=== PATIENT | female | born 1960 | race African-American/Black ===

== ENCOUNTER 2016-07-15 10:18 | Inpatient (IN) | payer OTHER ==
--- NOTE | 2016-07-15 10:41 | PDOC ---
History of Present Illness - General Chief Complaint: Shortness of Breath Stated Complaint: SOB/multiple compalints. Time Seen by Provider: 07/15/16 10:41 History Source: Patient Exam Limitations: No Limitations - History of Present Illness Initial Comments: 55 year old female presented to the ED with complaints of worsening SOB. A/c to the patient, she started having SOB with exertion, progressively getting worse, associated with Cough. Cough was productive, greenish/yellowish sputum, no blood noticed. It was associated with fever x 2days, Tmax-103F, with chills, sweating but no rigors. Took medication which reduced the fever. Patient took albuterol without symptomatic relief. Also complaints of myalgia x 1 week, started with B/L leg pain. Patient reports to have left sided chest tightness x 1 week, 8/10 in intensity, non radiating, not associated with palpitations, nausea or vomiting. Patient mentions that she doesn't take Insulin Levemir and Novolog since she is controlling Diabetes with diet and exercise. Her last HbA1c was 9 but now thinks it is 7 but hasn't checked recently and hasn't visited primary. Took flu shot 2 months ago, No sick contacts. Denies headache, dizziness, loc, trauma. Past Medical Hx: DM, HTN, HLD, Bipolar, Osteoarthritis, Asthma Allergies: NKDA Surgical Hx: None Hospitalization: ER visits only Family Hx: Unknown Social Hx:Lives alone Stopped smoking 8 yrs ago, smoked for more than 20 yrs 2packs/day Occasional alcohol intake Cracked cocaine but clean since 20 yrs. PCP: Dr. Broderick Melgoza (patient would like to change PCP0 07/15/16 17:07 Past History - Travel Traveled outside of the country in the last 30 days: No - Past Medical History Allergies/Adverse Reactions: Allergies Allergy/AdvReac Type Severity Reaction Status Date / Time No Known Allergies Allergy Verified 07/15/16 10:26 Home Medications: Ambulatory Orders Amlodipine Besylate [Norvasc -] 5 mg PO DAILY 07/15/16 Atorvastatin Ca [Lipitor] 20 mg PO DAILY 07/15/16 Clonidine HCl [Catapres] 0.2 mg PO BID 07/15/16 Cyclosporine [Restasis] 1 each OP BID 07/15/16 Fluticasone Prop 0.05% Nasal [Flonase -] 1 - 2 spray NS BID 07/15/16 Losartan Potassium [Cozaar -] 50 mg PO DAILY 07/15/16 Diabetes: Yes HTN: Yes Hypercholesterolemia: Yes Psychiatric Problems: Yes (BI-POLAR) Suicide Attempt (Hx): No - Immunization History Immunization Up to Date: Yes - Psycho/Social/Smoking Cessation Hx Anxiety: No Suicidal Ideation: No Smoking History: Never smoked Have you smoked in the past 12 months: No Number of Cigarettes Smoked Daily: 0 If you are a former smoker, when did you quit?: 8 years ago Information on smoking cessation initiated: No Hx Alcohol Use: No Drug/Substance Use Hx: No Substance Use Type: None Review of Systems - Review of Systems Able to Perform ROS?: Yes Constitutional: Yes: Chills, Fever, Malaise, Weakness. No: Unintentional Wgt. Loss, Unexplained wgt Loss HEENTM: Yes: Tearing. No: Eye Pain, Blurred Vision, Ocular Prothesis, Nose Bleeding, Difficulty Swallowing Respiratory: Yes: Cough, Shortness of Breath, SOB with Exertion, SOB at Rest, Wheezing, Productive cough Musculoskeletal: Yes: Muscle Pain *Physical Exam - Vital Signs Last Vital Signs Temp Pulse Resp BP Pulse Ox 97.9 F 100 H 18 102/72 100 07/15/16 10:28 07/15/16 10:28 07/15/16 10:28 07/15/16 10:28 07/15/16 10:28 - Physical Exam Comments: GENERAL: Awake, alert, and fully oriented, in no acute distress HEENT: Atraumatic. PERRLA, EOMI. Moist mucosa. No JVD LUNGS: No distress, speaks full sentences, B/L equal air entry, occasional wheeze +, no crackles HEART: Regular rate and rhythm, normal S1 and S2, no murmurs, rubs or gallops, peripheral pulses normal and equal bilaterally. ABDOMEN: Soft, nontender, normoactive bowel sounds.~ No guarding, no rebound.~ No masses EXTREMITIES: Normal inspection, Normal range of motion, no edema.~ No clubbing or cyanosis. Lower right extremity: Healing diabetic ulcer NEUROLOGICAL: Cranial nerves II through XII grossly intact.~ Normal speech, normal gait, no focal sensorimotor deficits SKIN: Warm, Dry, normal turgor, no rashes or lesions noted. ED Treatment Course - LABORATORY CBC & Chemistry Diagram: 07/15/16 11:30 07/15/16 15:45 Medical Decision Making - Medical Decision Making 07/15/16 13:59 55 year old female with significant past medical hx of DM, HTN, HLD, Bipolar, Asthma, Osteoarthritis presented to the ED with the chief complaints of SOB/ Cough. Most likely LRTI given the h/o sob, cough, fever Less likely ACS Ordered CBC, CMP, UA, Lactic acid, CXR 07/15/16 14:02 RBS-669, Lactic acid 4.4, AG-15 Patient refused ABG. Will order VBG, repeat lactic acid IV NS 3L. IV Insulin 10Units stat and BGM every hour. possible insulin drip once we get VBG report. 07/15/16 14:05 RBS-400; Lactic acid 2 IV NS @ 125mls/hr Will admit the patient. 07/15/16 17:[address] Solomon, waiting to hear from her. 07/15/16 17:53 Dr. Stephens accepted the patient. Will admit the patient in Med-Surg. IV 10U Insulin stat and BGM Q1H. Lactic acid repeat at 6:45pm. *DC/Admit/Observation/Transfer Diagnosis at time of Disposition: Diabetes mellitus, Cough
--- NOTE | 2016-07-15 10:53 | PDOC ---
[id number] I have performed the following: I have examined & evaluated the patient, The case was reviewed & discussed with the resident, I agree w/resident's findings & plan - HPI HPI: 10/01/16 10:41 Abdomen soft/no peritoneal siigns 10/01/16 10:43 Discharge Disposition - Diagnosis Cough Diabetes mellitus Qualifiers: Diabetes mellitus type: due to underlying condition Diabetes mellitus complication status: without complication - Discharge Dispostion Disposition: HOME Condition at time of disposition: Fair Admit: No - Prescriptions
[2016-07-15] MEDS ORDERED: ALBUTEROL SO4 0.083% IH SOL 2.5 MG/3 ML VIAL.NEB. NEB PRN (11:11)
[2016-07-15] MEDS ORDERED: methylPREDNISolone NA SUCC 125 MG/2 ML VIAL IVPB ONE (11:23)
[2016-07-15] MEDS ORDERED: AZITHROMYCIN IVPB 500 MG in DEXTROSE 5%-WATER - 250 ML IVPB ONE (11:24)
[2016-07-15] MEDS ORDERED: CEFTRIAXONE 1 GM in DEXTROSE 5%-WATER - 50 ML IVPB ONE (11:24)
[2016-07-15] MEDS ORDERED: ALBUTEROL SO4 0.083% IH SOL 2.5 MG/3 ML VIAL.NEB. NEB ONE ×2 (11:30→11:55)
[2016-07-15] MEDS ORDERED: methylPREDNISolone NA SUCC 125 MG/2 ML VIAL ONE (11:56)
[2016-07-15] MEDS ORDERED: CEFTRIAXONE 50 ML ONE (11:56)
[2016-07-15] MEDS ORDERED: AZITHROMYCIN IVPB 250 ML IVPB ONE (11:56)
[2016-07-15 12:03] LABS: BASOPHIL 0.8 % (0-2.0); EOSINOPHIL 1.8 % (0-4.5); MCH 32.6 pg (25.7-33.7); MCHC 32.3 g/dl (32.0-36.0); MEAN PLT VOLUME 10.9 fl (7.5-11.1); NEUTROPHILS 56.6 % (42.8-82.8); PLATELET COUNT 255 K/MM3 (134-434); RDW 14.6 % (11.6-15.6); WHITE BLOOD COUNT 7.5 K/mm3 (4.0-10.0)
[2016-07-15 12:38] LABS: ALBUMIN 3.3 g/dl (3.4-5.0); ALK PHOS 167 U/L (45-117); ANION GAP 15 (8-16); BILIRUBIN,TOTAL 0.3 mg/dL (0.2-1.0); CALCIUM 8.7 mg/dL (8.5-10.1); CO2 24 mmol/L (21-32); SGOT/AST 15 U/L (15-37); SGPT/ALT 25 U/L (12-78); TOT PROT 7.3 g/dl (6.4-8.2)
[2016-07-15 12:39] LABS: TROPONIN I < 0.02 ng/ml (0.00-0.05)
[2016-07-15 12:42] LABS: GLUCOSE,RANDOM 669 mg/dL (74-106)
[2016-07-15 12:44] LABS: URINE APPEARANCE CLEAR; URINE BILIRUBIN NEGATIVE (NEGATIVE); URINE BLOOD NEGATIVE (NEGATIVE); URINE COLOR STRAW; URINE GLUCOSE (UA) 3+ (NEGATIVE); URINE KETONE NEGATIVE (NEGATIVE); URINE LEUK ESTERASE NEGATIVE (NEGATIVE); URINE NITRITE NEGATIVE (NEGATIVE); URINE PROTEIN NEGATIVE (NEGATIVE); URINE UROBILINOGEN NEGATIVE E.U./dl (0.2-1.0)
[2016-07-15] MEDS ORDERED: SODIUM CHLORIDE 1,000 ML IV ONE (12:50)
[2016-07-15] MEDS ORDERED: SODIUM CHLORIDE 2,000 ML IV STA (13:01)
[2016-07-15] MEDS ORDERED: INSULIN REGULAR HUMAN 100 UNITS/ML *VIAL IVPUSH ONE ×2 (13:29→17:49)
[2016-07-15] MEDS ORDERED: INSULIN REGULAR HUMAN 100 UNITS/ML *VIAL ONE ×2 (13:59→18:17)
[2016-07-15 16:06] LABS: VENOUS BLOOD GAS HCO3 23.6 meq/L (19-25); VENOUS PH 7.41 (7.32-7.42)
--- NOTE | 2016-07-15 16:13 | EKG ---
Test Reason : Blood Pressure : / mmHG Vent. Rate : 093 BPM Atrial Rate : 093 BPM P-R Int : 166 ms QRS Dur : 078 ms QT Int : 332 ms P-R-T Axes : 058 014 052 degrees QTc Int : 412 ms SINUS RHYTHM WITH PREMATURE ATRIAL COMPLEXES POSSIBLE LEFT ATRIAL ENLARGEMENT NONSPECIFIC T WAVE ABNORMALITY ABNORMAL ECG NO PREVIOUS ECGS AVAILABLE Confirmed by CLARY LAZARO MD ([id number]) on 07/15/2016 4:13:21 PM Referred By: Confirmed By:CLARY LAZARO MD
[2016-07-15 16:16] LABS: CALCIUM 8.6 mg/dL (8.5-10.1); CREATININE 0.8 mg/dL (0.55-1.02)
[2016-07-15] MEDS: SODIUM CHLORIDE 1,000 ML IV SCH (17:10)
[2016-07-16] MEDS ORDERED: INSULIN (NOVOLOG) ASPART 100 UNITS/ML 10ML VIAL SQ ONE ×2 (00:13→02:09)
[2016-07-16 01:12] LABS: CALCIUM 8.7 mg/dL (8.5-10.1); CREATININE 0.8 mg/dL (0.55-1.02)
[2016-07-16] MEDS ORDERED: ONDANSETRON 4 MG/2 ML VIAL IVPB PRN (01:15)
[2016-07-16] MEDS ORDERED: INSULIN SLIDING SCALE (NOVOLOG) 1 VIAL SQ SCH ×4 (02:00→23:49)
[2016-07-16] MEDS: SODIUM CHLORIDE 0.45% 1,000 ML IV SCH (02:37)
[2016-07-16 05:00] VITALS: BMI 37.4
[2016-07-16] MEDS: metFORMIN HCL 500 MG TABLET (FP) PO SCH ×2 (06:37→15:34)
[2016-07-16] MEDS: INSULIN SLIDING SCALE (NOVOLOG) 1 VIAL SQ SCH ×3 (06:38→17:22)
[2016-07-16] MEDS ORDERED: ATORVASTATIN CA 20 MG TABLET (FP) PO SCH (10:00)
[2016-07-16] MEDS: ALBUTEROL SO4 0.083% IH SOL 2.5 MG/3 ML VIAL.NEB. NEB PRN ×3 (10:40→21:52)
[2016-07-16] MEDS: amLODIPine BESYLATE 5 MG TABLET (FP) PO SCH (10:40)
[2016-07-16] MEDS: ENOXAPARIN NA (PORCINE) 40 MG/0.4 ML DISP.SYRIN SQ SCH (10:40)
[2016-07-16] MEDS: cloNIDine HCL 0.1 MG TABLET PO SCH ×2 (10:40→22:21)
[2016-07-16] MEDS: LOSARTAN POTASSIUM 50 MG TABLET (FP) PO SCH (10:40)
--- NOTE | 2016-07-16 16:18 | HP ---
Admitting History and Physical - Admission Chief Complaint: Shortness of breath History of Present Illness: Pt is a 55 y/o morbidly obese female w/ bipolar disorder who presented to the ER bc of productive cough w/ greenish sputum. Pt states that this was accompanied w/ fever/malaise. In the ER pt was afebrile w/ normal wbc but lactic acid was >4. She was found to have glucose of >600 and trace acetone. Pt admitted to not taking her diabetic meds(levemir) paramjit over 2 months bc of her bipolar dz. She had stopped seeing her therapist. - Past Medical History Pulmonary: Yes: Asthma ...LMP: 11/06/15 ...: No Psych: Yes: Bipolar Endocrine: Yes: Diabetes Mellitus - Past Surgical History Past Surgical History: Yes: None - Smoking History Smoking history: Former smoker Have you smoked in the past 12 months: No Aproximately how many cigarettes per day: 0 If you are a former smoker, when did you quit?: 8 years ago - Alcohol/Substance Use Hx Alcohol Use: No Home Medications - Allergies Allergies/Adverse Reactions: Allergies Allergy/AdvReac Type Severity Reaction Status Date / Time No Known Allergies Allergy Verified 07/15/16 10:26 - Home Medications Home Medications: Ambulatory Orders Amlodipine Besylate [Norvasc -] 5 mg PO DAILY 07/15/16 Atorvastatin Ca [Lipitor] 20 mg PO DAILY 07/15/16 Clonidine HCl [Catapres] 0.2 mg PO BID 07/15/16 Cyclosporine [Restasis] 1 each OP BID 07/15/16 Fluticasone Prop 0.05% Nasal [Flonase -] 1 - 2 spray NS BID 07/15/16 Losartan Potassium [Cozaar -] 50 mg PO DAILY 07/15/16 Family Disease History - Family Disease History Family History: Unremarkable Review of Systems - Review of Systems Constitutional: reports: Fever, Loss of Appetite, Malaise Eyes: reports: No Symptoms HENT: reports: No Symptoms Neck: reports: No Symptoms Cardiovascular: reports: Shortness of Breath Respiratory: reports: Cough, SOB Gastrointestinal: reports: No Symptoms Physical Examination Vital Signs: Vital Signs Temperature 98.2 F 07/16/16 14:00 Pulse Rate 68 07/16/16 14:00 Respiratory Rate 16 07/16/16 14:00 Blood Pressure 118/68 07/16/16 14:00 O2 Sat by Pulse Oximetry (%) 99 07/16/16 09:00 Constitutional: Yes: Well Nourished HENT: Yes: WNL Neck: Yes: WNL Cardiovascular: Yes: WNL, Regular Rate and Rhythm Respiratory: Yes: Other (Decreased bs b/l) Gastrointestinal: Yes: WNL, Normal Bowel Sounds, Soft, Abdomen, Obese Musculoskeletal: Yes: WNL Extremities: Yes: WNL Edema: No Neurological: Yes: WNL, Alert, Oriented Labs: CBC, BMP 07/16/16 00:05 Problem List - Problems (1) DKA (diabetic ketoacidoses) Assessment/Plan: Cont IVF Endo consult Cont sliding scale w/ humalog Start metformin Check HgA1c Check acetone Code(s): E13.10 - OTH DIABETES MELLITUS WITH KETOACIDOSIS WITHOUT COMA (2) Asthma exacerbation Assessment/Plan: Cont IV ceftriaxone/zithro Cont nebulizers Will hold off on steroids due to DKA Pulmonary consult Code(s): J45.901 - UNSPECIFIED ASTHMA WITH (ACUTE) EXACERBATION (3) Elevated lactic acid level Assessment/Plan: Lactic acid trended down after IV hydration Code(s): E87.2 - ACIDOSIS (4) Morbid obesity Code(s): E66.01 - MORBID (SEVERE) OBESITY DUE TO EXCESS CALORIES (5) HTN (hypertension) Code(s): I10 - ESSENTIAL (PRIMARY) HYPERTENSION (6) HLD (hyperlipidemia) Code(s): E78.5 - HYPERLIPIDEMIA, UNSPECIFIED
[2016-07-16] MEDS ORDERED: ALBUTEROL SO4 2.5/IPRATROPIUM 0.5 INH SOL 3 ML VIAL.NEB. NEB PRN (16:20)
[2016-07-16] MEDS: SODIUM CHLORIDE 1,000 ML IV SCH (17:27)
[2016-07-16] MEDS ORDERED: INSULIN DETEMIR 100 UNITS/ML MDV SQ ONE (17:33)
[2016-07-16] MEDS ORDERED: INSULIN (NOVOLOG) ASPART 100 UNITS/ML 10ML VIAL ONE (17:33)
[2016-07-16] MEDS ORDERED: INSULIN (NOVOLOG MIX 70/30) 100 UNITS/ML MDV SQ ONE (17:34)
[2016-07-16] MEDS: cefTRIAXone 1 GM/50 ML BAG (PRE-DOCKED) IVPB SCH (22:23)
[2016-07-16] MEDS: AZITHROMYCIN IVPB 250 MG in DEXTROSE 5%-WATER - 250 ML IVPB SCH (22:23)
--- NOTE | 2016-07-16 23:31 | CONSULT ---
Consult Consult Specialty:: endocrine/diabetes mellitus Referred by:: Reason for Consultation:: iddm uncontrolled - History of Present Illness Chief Complaint: high blood sugars History of Present Illness: 55 year old female presented to the ED with complaints of worsening SOB. A/c to the patient, she started having SOB with exertion, progressively getting worse, associated with Cough. Cough was productive, greenish/yellowish sputum, no blood noticed. It was associated with fever x 2days, Tmax-103F, with chills, sweating but no rigors.Has not taken insulin levemir or humalog for last 6 months tired of having diabetes and wants to avoid it with diet and exercise. - History Source History Provided By: Patient - Past Medical History Pulmonary: Yes: Asthma ...LMP: 11/06/15 ...: No Psych: Yes: Bipolar Endocrine: Yes: Diabetes Mellitus - Past Surgical History Past Surgical History: Yes: None - Alcohol/Substance Use Hx Alcohol Use: No - Smoking History Smoking history: Former smoker Have you smoked in the past 12 months: No Aproximately how many cigarettes per day: 0 If you are a former smoker, when did you quit?: 8 years ago Home Medications - Allergies Allergies/Adverse Reactions: Allergies Allergy/AdvReac Type Severity Reaction Status Date / Time No Known Allergies Allergy Verified 07/15/16 10:26 - Home Medications Home Medications: Ambulatory Orders Amlodipine Besylate [Norvasc -] 5 mg PO DAILY 07/15/16 Atorvastatin Ca [Lipitor] 20 mg PO DAILY 07/15/16 Clonidine HCl [Catapres] 0.2 mg PO BID 07/15/16 Cyclosporine [Restasis] 1 each OP BID 07/15/16 Fluticasone Prop 0.05% Nasal [Flonase -] 1 - 2 spray NS BID 07/15/16 Losartan Potassium [Cozaar -] 50 mg PO DAILY 07/15/16 Review of Systems - Review of Systems Constitutional: reports: Lethargy, Weakness Eyes: reports: Blurred Vision HENT: reports: No Symptoms Neck: reports: No Symptoms Cardiovascular: reports: No Symptoms Respiratory: reports: SOB on Exertion Gastrointestinal: reports: Indigestion Genitourinary: reports: No Symptoms Breasts: reports: No Symptoms Reported Musculoskeletal: reports: No Symptoms Endocrine: reports: Unexplained Weight Loss Psychiatric: reports: Anxiety, Depression Physical Exam Vital Signs: Vital Signs Temperature 97.5 F L 07/16/16 20:20 Pulse Rate 81 07/16/16 20:20 Respiratory Rate 16 07/16/16 20:20 Blood Pressure 148/71 07/16/16 20:20 O2 Sat by Pulse Oximetry (%) 99 07/16/16 09:00 Constitutional: Yes: Anxious Eyes: Yes: EOM Intact HENT: Yes: Normocephalic Neck: Yes: Trachea Midline Cardiovascular: Yes: Regular Rate and Rhythm Respiratory: Yes: CTA Bilaterally Gastrointestinal: Yes: Normal Bowel Sounds ...Rectal Exam: Yes: Deferred Renal/: Yes: WNL Musculoskeletal: Yes: WNL Extremities: Yes: WNL Edema: No Integumentary: Yes: WNL Neurological: Yes: Alert, Oriented Labs: CBC, BMP 07/16/16 00:05 Problem List - Problems (1) DKA (diabetic ketoacidoses) Code(s): E13.10 - OTH DIABETES MELLITUS WITH KETOACIDOSIS WITHOUT COMA (2) HTN (hypertension) Code(s): I10 - ESSENTIAL (PRIMARY) HYPERTENSION Assessment/Plan iddm uncontrolled hyperglycemia dehydration urti htn Abnormal Lab Results 07/16/16 07/16/16 07/16/16 00:05 07:05 07:05 Sodium 135 L BUN 19 H D Random Glucose 595 H* Hemoglobin A1c % 14.3 H Acetone, Qual Trace H Laboratory Tests 07/16/16 07/16/16 07/16/16 00:05 06:02 07:05 Sodium 135 L Potassium 4.4 Chloride 98 Carbon Dioxide 21 Anion Gap 16 BUN 19 H D Creatinine 0.8 POC Glucometer 288 Hemoglobin A1c % 14.3 H Current Medications Generic Name Dose Route Start Last Admin Trade Name Freq PRN Reason Stop Dose Admin Albuterol Sulfate 1 amp 07/16/16 11:09 07/16/16 21:52 Ventolin 0.083% Nebulizer Soln - NEB 1 amp Q6H PRN Administration SHORT OF BREATH/WHEEZING Albuterol/Ipratropium 1 amp 07/16/16 16:20 Duoneb - NEB Q6H PRN SHORTNESS OF BREATH Amlodipine Besylate 5 mg 07/16/16 10:00 07/16/16 10:40 Norvasc - PO 5 mg DAILY ARTURO Administration Atorvastatin Calcium 20 mg 07/17/16 22:00 Lipitor - PO HS ARTURO Ceftriaxone Sodium 1 gm 07/16/16 21:30 07/16/16 22:23 Rocephin 1gm Ivpb (Pre-Docked) IVPB 1 gm DAILY ARTURO Administration Clonidine 0.2 mg 07/16/16 10:00 07/16/16 22:21 Catapres - PO 0.2 mg BID ARTURO Administration Enoxaparin Sodium 40 mg 07/16/16 10:00 07/16/16 10:40 Lovenox - SQ 40 mg DAILY ARTURO Administration Sodium Chloride 1,000 mls @ 75 mls/hr 07/16/16 01:15 07/16/16 02:37 1/2 Normal Saline IV 75 mls/hr ASDIR ARTURO Administration Azithromycin 250 mg/ Dextrose 250 mls @ 250 mls/hr 07/16/16 21:00 07/16/16 22: 23 IVPB 250 mls/hr DAILY ARTURO Administration Insulin Aspart 1 vial 07/16/16 22:00 07/16/16 22:13 Novolog Vial Sliding Scale - SQ 8 units ACHS ARTURO Administration Protocol Losartan Potassium 50 mg 07/16/16 10:00 07/16/16 10:40 Cozaar - PO 50 mg DAILY ARTURO Administration Metformin HCl 1,000 mg 07/16/16 07:00 07/16/16 15:34 Glucophage - PO 1,000 mg BID@0700,1630 ARTURO Administration Patient's Own 1 each 07/17/16 10:00 Medication (Non- OU Formulary) ( BID ARTURO Cyclosporine [ Restasis 0.05%] 1 Each) Ondansetron HCl 4 mg 07/16/16 01:15 Zofran Injection IVPB Q6H PRN NAUSEA plan: bgm ac hs novolog coverage levemir 25 units sq bid metformin 1gm bid diet psych consult for compliance and manic depression
[2016-07-17] MEDS: SODIUM CHLORIDE 0.45% 1,000 ML IV SCH ×2 (02:03→07:02)
[2016-07-17] MEDS: metFORMIN HCL 500 MG TABLET (FP) PO SCH ×2 (07:01→16:58)
[2016-07-17] MEDS: INSULIN SLIDING SCALE (NOVOLOG) 1 VIAL SQ SCH ×4 (07:03→22:31)
[2016-07-17] MEDS: AZITHROMYCIN IVPB 250 MG in DEXTROSE 5%-WATER - 250 ML IVPB SCH (09:00)
[2016-07-17] MEDS ORDERED: CEFTRIAXONE 1 GM in DEXTROSE 5%-WATER - 50 ML IVPB SCH (10:00)
[2016-07-17] MEDS ORDERED: INSULIN DETEMIR 100 UNITS/ML MDV SQ SCH ×2 (10:00→16:30)
[2016-07-17] MEDS: LOSARTAN POTASSIUM 50 MG TABLET (FP) PO SCH (10:46)
[2016-07-17] MEDS: cloNIDine HCL 0.1 MG TABLET PO SCH ×2 (10:46→22:30)
[2016-07-17] MEDS: ENOXAPARIN NA (PORCINE) 40 MG/0.4 ML DISP.SYRIN SQ SCH (10:46)
[2016-07-17] MEDS: amLODIPine BESYLATE 5 MG TABLET (FP) PO SCH (10:47)
[2016-07-17] MEDS: cefTRIAXone 1 GM/50 ML BAG (PRE-DOCKED) IVPB SCH (10:47)
[2016-07-17] MEDS: CYCLOSPORINE OU SCH ×2 (10:50→22:31)
--- NOTE | 2016-07-17 11:56 | CONSULT ---
Consult - text type - Consultation Consultation Note: Neurology History of Present Illness 55 year old female presented to the ED with complaints of worsening SOB with exertion, progressively getting worse, associated with Cough. Cough was productive, greenish/yellowish sputum, associated with fever. Patient with bipolar disorder and neurology consulted. Mental status appears at baseline and patient without focal deficits. Reports myalgia for a week but possibly due to underlying infection. Past History Past Medical Hx: DM, HTN, HLD, Bipolar, Osteoarthritis, Asthma Allergies: NKDA Surgical Hx: None Hospitalization: ER visits only Family Hx: Unknown Social Hx:Lives alone Stopped smoking 8 yrs ago, smoked for more than 20 yrs 2packs/day Occasional alcohol intake Cracked cocaine but clean since 20 yrs. - Travel Traveled outside of the country in the last 30 days: No - Past Medical History Allergies/Adverse Reactions: Allergies Allergy/AdvReac Type Severity Reaction Status Date / Time No Known Allergies Allergy Verified 07/15/16 10:26 Home Medications: Ambulatory Orders Amlodipine Besylate [Norvasc -] 5 mg PO DAILY 07/15/16 Atorvastatin Ca [Lipitor] 20 mg PO DAILY 07/15/16 Clonidine HCl [Catapres] 0.2 mg PO BID 07/15/16 Cyclosporine [Restasis] 1 each OP BID 07/15/16 Fluticasone Prop 0.05% Nasal [Flonase -] 1 - 2 spray NS BID 07/15/16 Losartan Potassium [Cozaar -] 50 mg PO DAILY 07/15/16 Diabetes: Yes HTN: Yes Hypercholesterolemia: Yes Psychiatric Problems: Yes (BI-POLAR) Suicide Attempt (Hx): No - Immunization History Immunization Up to Date: Yes - Psycho/Social/Smoking Cessation Hx Anxiety: No Suicidal Ideation: No Smoking History: Never smoked Have you smoked in the past 12 months: No Number of Cigarettes Smoked Daily: 0 If you are a former smoker, when did you quit?: 8 years ago Information on smoking cessation initiated: No Hx Alcohol Use: No Drug/Substance Use Hx: No Substance Use Type: None Review of Systems - Review of Systems Able to Perform ROS?: Yes Constitutional: Yes: Chills, Fever, Malaise, Weakness. No: Unintentional Wgt. Loss, Unexplained wgt Loss HEENTM: Yes: Tearing. No: Eye Pain, Blurred Vision, Ocular Prothesis, Nose Bleeding, Difficulty Swallowing Respiratory: Yes: Cough, Shortness of Breath, SOB with Exertion, SOB at Rest, Wheezing, Productive cough Musculoskeletal: Yes: Muscle Pain *Physical Exam - Vital Signs Last Vital Signs Temp Pulse Resp BP Pulse Ox 97.9 F 100 H 18 102/72 100 07/15/16 10:28 07/15/16 10:28 07/15/16 10:28 07/15/16 10:28 07/15/16 10:28 - Physical Exam GENERAL: Awake, alert, and fully oriented, in no acute distress HEENT: Atraumatic. PERRLA, EOMI. Moist mucosa. No JVD LUNGS: No distress, speaks full sentences, B/L equal air entry, occasional wheeze +, no crackles HEART: Regular rate and rhythm, normal S1 and S2, no murmurs, rubs or gallops, peripheral pulses normal and equal bilaterally. ABDOMEN: Soft, nontender, normoactive bowel sounds.~ No guarding, no rebound.~ No masses EXTREMITIES: Normal inspection, Normal range of motion, no edema.~ No clubbing or cyanosis. Lower right extremity: Healing diabetic ulcer NEUROLOGICAL: Cranial nerves II through XII grossly intact.~ Normal speech, normal gait, no focal sensorimotor deficits SKIN: Warm, Dry, normal turgor, no rashes or lesions noted. CBCD WBC 7.5 K/mm3 (4.0-10.0) 07/15/16 11:30 RBC 4.23 M/mm3 (3.60-5.2) 07/15/16 11:30 Hgb 13.8 GM/dL (10.7-15.3) 07/15/16 11:30 Hct 42.7 % (32.4-45.2) 07/15/16 11:30 MCV 101.0 fl (80-96) H 07/15/16 11:30 MCHC 32.3 g/dl (32.0-36.0) 07/15/16 11:30 RDW 14.6 % (11.6-15.6) 07/15/16 11:30 Plt Count 255 K/MM3 (134-434) D 07/15/16 11:30 MPV 10.9 fl (7.5-11.1) D 07/15/16 11:30 CMP Sodium 135 mmol/L (136-145) L 07/16/16 00:05 Potassium 4.4 mmol/L (3.5-5.1) 07/16/16 00:05 Chloride 98 mmol/L (98-107) 07/16/16 00:05 Carbon Dioxide 21 mmol/L (21-32) 07/16/16 00:05 Anion Gap 16 (8-16) 07/16/16 00:05 BUN 19 mg/dL (7-18) H D 07/16/16 00:05 Creatinine 0.8 mg/dL (0.55-1.02) 07/16/16 00:05 Creat Clearance w eGFR 58.00 (>60) 07/15/16 11:30 Calcium 8.7 mg/dL (8.5-10.1) 07/16/16 00:05 Total Bilirubin 0.3 mg/dL (0.2-1.0) D 07/15/16 11:30 AST 15 U/L (15-37) D 07/15/16 11:30 ALT 25 U/L (12-78) D 07/15/16 11:30 Alkaline Phosphatase 167 U/L (45-117) H D 07/15/16 11:30 Total Protein 7.3 g/dl (6.4-8.2) 07/15/16 11:30 Albumin 3.3 g/dl (3.4-5.0) L 07/15/16 11:30 Plan: 55 year old female presented to the ED with complaints of worsening SOB with exertion, progressively getting worse, associated with Cough. Cough was productive, greenish/yellowish sputum, associated with fever. Patient with bipolar disorder and neurology consulted. Mental status appears at baseline and patient without focal deficits. Reports myalgia for a week but possibly due to underlying infection. Recommend pysch eval for bipolar Infectious managment Optimize glucose for DKA Endocrine follow up Myalgia should improve as underlying conditions optimized
--- NOTE | 2016-07-17 12:26 | PN ---
Progress Note (short form) - Note Progress Note: PULMONARY CONSULTATION DICTATED 07/17/16 IMP ACUTE ASTHMATIC BRONCHITIS URI LIKELY VIRAL HEMOPTYSIS POORLY CONTROLLED DM HTN BIPOLAR DISORDER ELEVATED LACTATE LEVEL PLAN IV ANTIBIOTICS INHALED BRONCHODILATORS O2 PRN CHEST CT MONITOR BLOOD SUGARS IVF PFTS OUTPATIENT DR CRISTINA Problem List - Problems (1) Asthma exacerbation Code(s): J45.901 - UNSPECIFIED ASTHMA WITH (ACUTE) EXACERBATION (2) Cough Code(s): R05 - COUGH (3) Diabetes mellitus Code(s): E11.9 - TYPE 2 DIABETES MELLITUS WITHOUT COMPLICATIONS (4) Elevated lactic acid level Code(s): E87.2 - ACIDOSIS (5) HTN (hypertension) Code(s): I10 - ESSENTIAL (PRIMARY) HYPERTENSION (6) Morbid obesity Code(s): E66.01 - MORBID (SEVERE) OBESITY DUE TO EXCESS CALORIES (7) Asthmatic bronchitis Code(s): J45.909 - UNSPECIFIED ASTHMA, UNCOMPLICATED (8) Hemoptysis Code(s): R04.2 - HEMOPTYSIS (9) DKA (diabetic ketoacidoses) Code(s): E13.10 - OTH DIABETES MELLITUS WITH KETOACIDOSIS WITHOUT COMA
[2016-07-17] MEDS: TIOTROPIUM BROMIDE 18 MCG/INH (DEVICE W/ 5 CAPSULES) IH SCH (13:28)
[2016-07-17] MEDS: BUDESONIDE/FORMETEROL FUMARATE 160/4.5 mcg INHALER IH SCH ×2 (13:28→22:32)
--- NOTE | 2016-07-17 16:56 | CONS ---
DATE OF CONSULTATION: 07/17/2016 PULMONARY CONSULTATION REFERRING PHYSICIAN: Rosalinda Stephens M.D. HISTORY OF PRESENT ILLNESS: The patient is a 55-year-old black female with past medical history of asthma, history of diabetes mellitus noncompliant, bipolar, hypertension, admitted to [facility] on July 15 with complaint of increasing shortness of breath, cough, sputum production. Patient states approximately 2 weeks prior to this she started developing cough and chest congestion. She also had wheezing. She states she took inhaled bronchodilators which did not offer much improvement. Over the course of time she started developing increasing shortness of breath, cough, and bronchospasm with cough initially productive of greenish yellow sputum, but then after a couple episodes of blood-streaked sputum. She presented to the emergency room with the above. Patient also complained of fever for 2 days up to T-max of 103 with chills and sweating. She presented to ER with above. In the ER, she was noted to have an elevated blood sugar 595. She is felt to have DKA secondary to noncompliance, as well as URI. She was admitted to the floor for further management. She is started on IV antibiotics, inhaled bronchodilators as well as insulin. Patient denies any recent travel , denies h/o DVT or PE in the past. She has a history of tobacco use, approximately 2 packs per day for 20 years, quit approximately 8 years ago. There is no history of occupational exposure to chemicals or fumes. There is no history of respiratory failure requiring respiratory support. PAST MEDICAL HISTORY: Again includes asthma, hypertension, as well as diabetes , and bipolar. REVIEW OF SYSTEMS: Positive cough. Positive sputum. Positive fever. Positive chills. No chest pain. No palpitations. Positive hemoptysis. No abdominal pain. No nausea. No vomiting. No lower extremity edema. CURRENT MEDICATIONS: Include cyclosporin eyedrops, Zofran, Cozaar, Zithromax, Rocephin, Lovenox, albuterol, DuoNeb, Glucophage, Catapres, Norvasc, Lipitor, Novolog, and normal saline. PHYSICAL EXAMINATION: General: The patient is a well-developed, well-nourished female, awake, alert, in no acute distress. Vital signs: She is currently afebrile. Blood pressure 149/76, respiratory rate 20, heart rate 62, O2 saturation is 96% on room air. HEENT: Head is normocephalic, atraumatic. Neck: Supple. Heart: Regular. S1, S2. Chest: Few scattered bilateral wheezes. Abdomen: Soft. Bowel sounds positive. Extremities: No cyanosis, edema. LABORATORY: UA is positive for glucose, negative ketone. WBC 7.5, hemoglobin 13.8, hematocrit 42.7, platelet count of 255,000. VB.41, pCO2 of 37, pO2 of 70, bicarbonate 23. Hemoglobin A1c is 14.3. BUN is 19, creatinine 0.8, sodium 135, glucose 595 on admission. Also chest x-ray report, no infiltrates, no effusions. Initial lactate was 4.4, currently 1.80. IMPRESSION: 1. Uncontrolled diabetes. 2. Upper respiratory infection. 3. Asthmatic bronchitis secondary to upper respiratory infection. 4. Hypertension. 5. Bipolar. PLAN: IV fluid, inhaled bronchodilators, antibiotic therapy, CT scan of the chest. In view of history of tobacco use as well as hemoptysis, glycemic control, continue insulin , monitor blood sugars. Thank you, will follow closely with you. VIKTORIA CRISTINA M.D. GERALD/[id number] MTDD
--- NOTE | 2016-07-17 19:29 | PN ---
Progress Note, Physician - Current Medication List Current Medications: Active Medications Albuterol Sulfate (Ventolin 0.083% Nebulizer Soln -) 1 amp NEB Q6H PRN PRN Reason: SHORT OF BREATH/WHEEZING Last Admin: 07/16/16 21:52 Dose: 1 amp Albuterol/Ipratropium (Duoneb -) 1 amp NEB Q6H PRN PRN Reason: SHORTNESS OF BREATH Amlodipine Besylate (Norvasc -) 5 mg PO DAILY [facility] Last Admin: 07/17/16 10:47 Dose: 5 mg Atorvastatin Calcium (Lipitor -) 20 mg PO HS [facility] Budesonide/Formoterol Fumarate (Symbicort 160/4.5mcg -) 2 puff IH BID [facility] Last Admin: 07/17/16 13:28 Dose: Not Given Ceftriaxone Sodium (Rocephin 1gm Ivpb (Pre-Docked)) 1 gm IVPB DAILY [facility] Last Admin: 07/17/16 10:47 Dose: 1 gm Clonidine (Catapres -) 0.2 mg PO BID [facility] Last Admin: 07/17/16 10:46 Dose: 0.2 mg Enoxaparin Sodium (Lovenox -) 40 mg SQ DAILY [facility] Last Admin: 07/17/16 10:46 Dose: 40 mg Sodium Chloride (1/2 Normal Saline) 1,000 mls @ 75 mls/hr IV ASDIR [facility] Last Admin: 07/17/16 07:02 Dose: 75 mls/hr Azithromycin 250 mg/ Dextrose 250 mls @ 250 mls/hr IVPB DAILY [facility] Last Admin: 07/17/16 09:00 Dose: 250 mls/hr Insulin Aspart (Novolog Vial Sliding Scale -) 1 vial SQ ACHS [facility] PRN Reason: Protocol Last Admin: 07/17/16 17:00 Dose: 9 units Insulin Detemir (Levemir Vial) 30 units SQ BID@0700,2200 [facility] Losartan Potassium (Cozaar -) 50 mg PO DAILY [facility] Last Admin: 07/17/16 10:46 Dose: 50 mg Metformin HCl (Glucophage -) 1,000 mg PO BID@0700,1630 [facility] Last Admin: 07/17/16 16:58 Dose: 1,000 mg Patient's Own Medication (Non- Formulary) ( Cyclosporine [ Restasis 0.05%] 1 Each) 1 each OU BID [facility] Last Admin: 02/15/17 10:50 Dose: 1 each Ondansetron HCl (Zofran Injection) 4 mg IVPB Q6H PRN PRN Reason: NAUSEA Tiotropium [place] (Spiriva -) 1 puff IH DAILY [facility] Last Admin: 07/17/16 13:28 Dose: Not Given - Objective Vital Signs: Vital Signs Temperature 97.3 F L 07/17/16 16:20 Pulse Rate 64 07/17/16 16:20 Respiratory Rate 20 07/17/16 16:20 Blood Pressure 118/71 07/17/16 16:20 O2 Sat by Pulse Oximetry (%) 96 07/17/16 09:00 Labs: CBC, BMP 07/16/16 00:05 Problem List - Problems (1) DKA (diabetic ketoacidoses) Code(s): E13.10 - OTH DIABETES MELLITUS WITH KETOACIDOSIS WITHOUT COMA (2) Asthma exacerbation Code(s): J45.901 - UNSPECIFIED ASTHMA WITH (ACUTE) EXACERBATION (3) Elevated lactic acid level Code(s): E87.2 - ACIDOSIS (4) Morbid obesity Code(s): E66.01 - MORBID (SEVERE) OBESITY DUE TO EXCESS CALORIES (5) HTN (hypertension) Code(s): I10 - ESSENTIAL (PRIMARY) HYPERTENSION (6) HLD (hyperlipidemia) Code(s): E78.5 - HYPERLIPIDEMIA, UNSPECIFIED
[2016-07-17] MEDS ORDERED: INSULIN (NOVOLOG) ASPART 100 UNITS/ML 10ML VIAL ONE ×2 (21:03→22:15)
[2016-07-17] MEDS ORDERED: PT OWN MED DRAWER 7, Y5N ONE (22:20)
[2016-07-17] MEDS: ATORVASTATIN CA 20 MG TABLET (FP) PO SCH (22:29)
[2016-07-17] MEDS: INSULIN DETEMIR 100 UNITS/ML MDV SQ SCH (22:31)
--- NOTE | 2016-07-18 00:33 | PN ---
Progress Note, Physician Chief Complaint: high sugars despite diet improved,has loose stools claims metformin she cant tolerate History of Present Illness: iddm,morbid obesity,htn,urti,still labile blood sugars - Current Medication List Current Medications: Active Medications Albuterol Sulfate (Ventolin 0.083% Nebulizer Soln -) 1 amp NEB Q6H PRN PRN Reason: SHORT OF BREATH/WHEEZING Last Admin: 07/16/16 21:52 Dose: 1 amp Albuterol/Ipratropium (Duoneb -) 1 amp NEB Q6H PRN PRN Reason: SHORTNESS OF BREATH Amlodipine Besylate (Norvasc -) 5 mg PO DAILY [facility] Last Admin: 07/17/16 10:47 Dose: 5 mg Atorvastatin Calcium (Lipitor -) 20 mg PO HS [facility] Last Admin: 07/17/16 22:29 Dose: 20 mg Budesonide/Formoterol Fumarate (Symbicort 160/4.5mcg -) 2 puff IH BID [facility] Last Admin: 07/17/16 22:32 Dose: 2 puff Ceftriaxone Sodium (Rocephin 1gm Ivpb (Pre-Docked)) 1 gm IVPB DAILY [facility] Last Admin: 07/17/16 10:47 Dose: 1 gm Clonidine (Catapres -) 0.2 mg PO BID [facility] Last Admin: 07/17/16 22:30 Dose: 0.2 mg Enoxaparin Sodium (Lovenox -) 40 mg SQ DAILY [facility] Last Admin: 07/17/16 10:46 Dose: 40 mg Sodium Chloride (1/2 Normal Saline) 1,000 mls @ 75 mls/hr IV ASDIR [facility] Last Admin: 07/17/16 07:02 Dose: 75 mls/hr Azithromycin 250 mg/ Dextrose 250 mls @ 250 mls/hr IVPB DAILY [facility] Last Admin: 07/17/16 09:00 Dose: 250 mls/hr Insulin Aspart (Novolog Vial Sliding Scale -) 1 vial SQ ACHS [facility] PRN Reason: Protocol Last Admin: 07/17/16 22:31 Dose: 5 units Insulin Detemir (Levemir Vial) 30 units SQ BID@0700,2200 [facility] Last Admin: 07/17/16 22:31 Dose: 30 units Losartan Potassium (Cozaar -) 50 mg PO DAILY [facility] Last Admin: 07/17/16 10:46 Dose: 50 mg Metformin HCl (Glucophage -) 1,000 mg PO BID@0700,1630 [facility] Last Admin: 07/17/16 16:58 Dose: 1,000 mg Patient's Own Medication (Non- Formulary) ( Cyclosporine [ Restasis 0.05%] 1 Each) 1 each OU BID [facility] Last Admin: 07/17/16 22:31 Dose: 1 each Ondansetron HCl (Zofran Injection) 4 mg IVPB Q6H PRN PRN Reason: NAUSEA Tiotropium [place] (Spiriva -) 1 puff IH DAILY [facility] Last Admin: 07/17/16 13:28 Dose: Not Given - Objective Vital Signs: Vital Signs Temperature 97 F L 07/17/16 21:29 Pulse Rate 69 07/17/16 21:29 Respiratory Rate 18 07/17/16 21:29 Blood Pressure 127/83 07/17/16 21:29 O2 Sat by Pulse Oximetry (%) 96 07/17/16 09:00 Constitutional: Yes: Well Nourished, Anxious Eyes: Yes: EOM Intact HENT: Yes: Normocephalic Neck: Yes: WNL Cardiovascular: Yes: WNL Respiratory: Yes: Poor Air Entry Gastrointestinal: Yes: Hyperactive Bowel Sounds ...Rectal Exam: Yes: Deferred Genitourinary: Yes: WNL Musculoskeletal: Yes: WNL Extremities: Yes: WNL Edema: No Peripheral Pulses WNL: Yes Labs: CBC, BMP 07/16/16 00:05 Problem List - Problems (1) DKA (diabetic ketoacidoses) Code(s): E13.10 - OTH DIABETES MELLITUS WITH KETOACIDOSIS WITHOUT COMA (2) HTN (hypertension) Code(s): I10 - ESSENTIAL (PRIMARY) HYPERTENSION Assessment/Plan Current Active Problems Asthma exacerbation (Acute) Asthmatic bronchitis (Acute) Cough (Acute) Diabetes mellitus (Acute) Elevated lactic acid level (Acute) HLD (hyperlipidemia) (Acute) HTN (hypertension) (Acute) Hemoptysis (Acute) Morbid obesity (Acute) Laboratory Results - last 24 hr 07/15/16 07/15/16 07/15/16 14:16 19:50 21:21 POC Glucometer > 400 > 400 494 07/16/16 07/16/16 07/16/16 00:18 01:53 11:51 POC Glucometer 543 467 402 07/17/16 07/17/16 07/17/16 07:00 11:04 16:52 POC Glucometer 354 306 264 07/17/16 21:20 POC Glucometer 165 Current Medications Generic Name Dose Route Start Last Admin Trade Name Freq PRN Reason Stop Dose Admin Albuterol Sulfate 1 amp 07/16/16 11:09 07/16/16 21:52 Ventolin 0.083% Nebulizer Soln - NEB 1 amp Q6H PRN Administration SHORT OF BREATH/WHEEZING Albuterol/Ipratropium 1 amp 07/16/16 16:20 Duoneb - NEB Q6H PRN SHORTNESS OF BREATH Amlodipine Besylate 5 mg 07/16/16 10:00 07/17/16 10:47 Norvasc - PO 5 mg DAILY [facility] Administration Atorvastatin Calcium 20 mg 07/17/16 22:00 07/17/16 22:29 Lipitor - PO 20 mg HS [facility] Administration Budesonide/Formoterol Fumarate 2 puff 07/17/16 12:30 07/17/16 22:32 Symbicort 160/4.5mcg - IH 2 puff BID [facility] Administration Ceftriaxone Sodium 1 gm 07/16/16 21:30 07/17/16 10:47 Rocephin 1gm Ivpb (Pre-Docked) IVPB 1 gm DAILY [facility] Administration Clonidine 0.2 mg 07/16/16 10:00 07/17/16 22:30 Catapres - PO 0.2 mg BID [facility] Administration Enoxaparin Sodium 40 mg 07/16/16 10:00 07/17/16 10:46 Lovenox - SQ 40 mg DAILY [facility] Administration Sodium Chloride 1,000 mls @ 75 mls/hr 07/16/16 01:15 07/17/16 07:02 1/2 Normal Saline IV 75 mls/hr ASDIR [facility] Administration Azithromycin 250 mg/ Dextrose 250 mls @ 250 mls/hr 07/16/16 21:00 07/17/16 09: 00 IVPB 250 mls/hr DAILY [facility] Administration Insulin Aspart 1 vial 07/17/16 15:54 07/17/16 22:31 Novolog Vial Sliding Scale - SQ 5 units ACHS [facility] Administration Protocol Insulin Detemir 30 units 07/17/16 22:00 07/17/16 22:31 Levemir Vial SQ 30 units BID@0700,2200 [facility] Administration Losartan Potassium 50 mg 07/16/16 10:00 07/17/16 10:46 Cozaar - PO 50 mg DAILY [facility] Administration Patient's Own 1 each 07/17/16 10:00 07/17/16 22:31 Medication (Non- OU 1 each Formulary) ( BID [facility] Administration Cyclosporine [ Restasis 0.05%] 1 Each) Ondansetron HCl 4 mg 07/16/16 01:15 Zofran Injection IVPB Q6H PRN NAUSEA Tiotropium [place] 1 puff 07/17/16 12:30 07/17/16 13:28 Spiriva - IH Not Given DAILY [facility] Laboratory Tests 07/17/16 07/17/16 07/17/16 07:00 11:04 16:52 POC Glucometer 354 306 264 07/17/16 21:20 POC Glucometer 165 plan: titrate dose of levemir and continue novolog sliding scale when respiratory symptoms improve may dc home on insulin
[2016-07-18] MEDS: INSULIN SLIDING SCALE (NOVOLOG) 1 VIAL SQ SCH ×4 (06:41→21:34)
[2016-07-18] MEDS: INSULIN DETEMIR 100 UNITS/ML MDV SQ SCH ×2 (06:41→21:34)
[2016-07-18 08:07] LABS: ALBUMIN 2.7 g/dl (3.4-5.0); ANION GAP 11 (8-16); BILIRUBIN,TOTAL 0.2 mg/dL (0.2-1.0); CALCIUM 8.4 mg/dL (8.5-10.1); CO2 24 mmol/L (21-32); CREATININE 0.5 mg/dL (0.55-1.02); GLUCOSE,RANDOM 199 mg/dL (74-106); SGOT/AST 20 U/L (15-37); SGPT/ALT 30 U/L (12-78); TOT PROT 6.1 g/dl (6.4-8.2)
[2016-07-18 08:08] LABS: ALK PHOS 94 U/L (45-117)
[2016-07-18] MEDS ORDERED: PT OWN MED DRAWER 7, Y5N ONE (09:00)
[2016-07-18] MEDS: LOSARTAN POTASSIUM 50 MG TABLET (FP) PO SCH (09:08)
[2016-07-18] MEDS: CYCLOSPORINE OU SCH ×2 (09:09→21:19)
[2016-07-18] MEDS: amLODIPine BESYLATE 5 MG TABLET (FP) PO SCH (09:09)
[2016-07-18] MEDS: cloNIDine HCL 0.1 MG TABLET PO SCH ×2 (09:09→21:19)
[2016-07-18] MEDS: ENOXAPARIN NA (PORCINE) 40 MG/0.4 ML DISP.SYRIN SQ SCH (09:09)
[2016-07-18] MEDS: TIOTROPIUM BROMIDE 18 MCG/INH (DEVICE W/ 5 CAPSULES) IH SCH (09:10)
[2016-07-18] MEDS: cefTRIAXone 1 GM/50 ML BAG (PRE-DOCKED) IVPB SCH (09:10)
[2016-07-18] MEDS: BUDESONIDE/FORMETEROL FUMARATE 160/4.5 mcg INHALER IH SCH ×2 (09:14→21:20)
--- NOTE | 2016-07-18 09:46 | PN ---
Progress Note (short form) - Note Progress Note: Feels a little better today. Still with some left posterior pleuritic type discomfort. No hemoptysis. Intake & Output 07/15/16 07/16/16 07/17/16 07/18/16 23:59 23:59 23:59 23:59 Intake Total 1100 3320 2050 900 Output Total 1100 Balance 1100 2220 2050 900 Weight 232 lb Last Vital Signs Temp Pulse Resp BP Pulse Ox 98.1 F 56 L 18 111/63 96 07/18/16 06:00 07/18/16 06:00 07/18/16 06:00 07/18/16 06:00 07/17/16 21:00 Active Medications Albuterol Sulfate (Ventolin 0.083% Nebulizer Soln -) 1 amp NEB Q6H PRN PRN Reason: SHORT OF BREATH/WHEEZING Last Admin: 07/16/16 21:52 Dose: 1 amp Albuterol/Ipratropium (Duoneb -) 1 amp NEB Q6H PRN PRN Reason: SHORTNESS OF BREATH Amlodipine Besylate (Norvasc -) 5 mg PO DAILY [facility] Last Admin: 07/18/16 09:09 Dose: 5 mg Atorvastatin Calcium (Lipitor -) 20 mg PO HS [facility] Last Admin: 07/17/16 22:29 Dose: 20 mg Budesonide/Formoterol Fumarate (Symbicort 160/4.5mcg -) 2 puff IH BID [facility] Last Admin: 07/18/16 09:14 Dose: 2 puff Ceftriaxone Sodium (Rocephin 1gm Ivpb (Pre-Docked)) 1 gm IVPB DAILY [facility] Last Admin: 07/18/16 09:10 Dose: 1 gm Clonidine (Catapres -) 0.2 mg PO BID [facility] Last Admin: 07/18/16 09:09 Dose: 0.2 mg Enoxaparin Sodium (Lovenox -) 40 mg SQ DAILY [facility] Last Admin: 07/18/16 09:09 Dose: 40 mg Sodium Chloride (1/2 Normal Saline) 1,000 mls @ 75 mls/hr IV ASDIR [facility] Last Admin: 07/17/16 07:02 Dose: 75 mls/hr Azithromycin 250 mg/ Dextrose 250 mls @ 250 mls/hr IVPB DAILY [facility] Last Admin: 07/17/16 09:00 Dose: 250 mls/hr Insulin Aspart (Novolog Vial Sliding Scale -) 1 vial SQ ACHS [facility] PRN Reason: Protocol Last Admin: 07/18/16 06:41 Dose: 5 units Insulin Detemir (Levemir Vial) 30 units SQ BID@0700,2200 [facility] Last Admin: 07/18/16 06:41 Dose: 30 units Losartan Potassium (Cozaar -) 50 mg PO DAILY [facility] Last Admin: 07/18/16 09:08 Dose: 50 mg Patient's Own Medication (Non- Formulary) ( Cyclosporine [ Restasis 0.05%] 1 Each) 1 each OU BID [facility] Last Admin: 07/18/16 09:09 Dose: 1 each Ondansetron HCl (Zofran Injection) 4 mg IVPB Q6H PRN PRN Reason: NAUSEA Tiotropium [place] (Spiriva -) 1 puff IH DAILY [facility] Last Admin: 07/18/16 09:10 Dose: 1 inh Constitutional: Yes: NAD HENT: Yes: WNL Neck: Yes: WNL Cardiovascular: Yes: WNL, Regular Rate and Rhythm Respiratory: Yes: Scattered rhonchi, NO wheeze Gastrointestinal: Yes: WNL, Normal Bowel Sounds, Soft, Abdomen, Obese Musculoskeletal: Yes: WNL Extremities: Yes: WNL Edema: No Neurological: Yes: WNL, Alert, Oriented Laboratory Results - last 24 hr 07/15/16 07/15/16 07/15/16 14:16 19:50 21:21 Sodium Potassium Chloride Carbon Dioxide Anion Gap BUN Creatinine Creat Clearance w eGFR POC Glucometer > 400 > 400 494 Random Glucose Calcium Total Bilirubin AST ALT Alkaline Phosphatase Total Protein Albumin 07/16/16 07/16/16 07/16/16 00:18 01:53 11:51 Sodium Potassium Chloride Carbon Dioxide Anion Gap BUN Creatinine Creat Clearance w eGFR POC Glucometer 543 467 402 Random Glucose Calcium Total Bilirubin AST ALT Alkaline Phosphatase Total Protein Albumin 07/17/16 07/17/16 07/17/16 11:04 16:52 21:20 Sodium Potassium Chloride Carbon Dioxide Anion Gap BUN Creatinine Creat Clearance w eGFR POC Glucometer 306 264 165 Random Glucose Calcium Total Bilirubin AST ALT Alkaline Phosphatase Total Protein Albumin 07/18/16 07/18/16 06:30 06:40 Sodium 138 Potassium 3.9 Chloride 103 Carbon Dioxide 24 Anion Gap 11 BUN 10 D Creatinine 0.5 L D Creat Clearance w eGFR > 60 POC Glucometer 195 Random Glucose 199 H D Calcium 8.4 L Total Bilirubin 0.2 D AST 20 D ALT 30 Alkaline Phosphatase 94 D Total Protein 6.1 L Albumin 2.7 L Problem List - Problems (1) Asthma exacerbation Code(s): J45.901 - UNSPECIFIED ASTHMA WITH (ACUTE) EXACERBATION (2) Cough Code(s): R05 - COUGH (3) Diabetes mellitus Code(s): E11.9 - TYPE 2 DIABETES MELLITUS WITHOUT COMPLICATIONS (4) Elevated lactic acid level Code(s): E87.2 - ACIDOSIS (5) HTN (hypertension) Code(s): I10 - ESSENTIAL (PRIMARY) HYPERTENSION (6) Morbid obesity Code(s): E66.01 - MORBID (SEVERE) OBESITY DUE TO EXCESS CALORIES (7) Asthmatic bronchitis Code(s): J45.909 - UNSPECIFIED ASTHMA, UNCOMPLICATED (8) Hemoptysis Code(s): R04.2 - HEMOPTYSIS (9) DKA (diabetic ketoacidoses) Code(s): E13.10 - OTH DIABETES MELLITUS WITH KETOACIDOSIS WITHOUT COMA PLAN: Symbicort BD [place] Spiriva ABX O2 as needed Glycemic control Monitor off Systemic steroids for now as I do not appreciate active bronchospasm today Incentive Spirometry / OOB to chair Dr Lemon
[2016-07-18] MEDS: AZITHROMYCIN IVPB 250 MG in DEXTROSE 5%-WATER - 250 ML IVPB SCH (09:54)
[2016-07-18] MEDS: SODIUM CHLORIDE 0.45% 1,000 ML IV SCH (09:54)
--- NOTE | 2016-07-18 10:12 | PN ---
Progress Note (short form) - Note Progress Note: Neurology History of Present Illness 55 year old female presented to the ED with complaints of worsening SOB with exertion, progressively getting worse, associated with Cough. Cough was productive, greenish/yellowish sputum, associated with fever. Patient with bipolar disorder and neurology consulted. Mental status appears at baseline and patient without focal deficits. Reports myalgia for a week but possibly due to underlying infection. Psych consult recommended as bipolar disorder would be best managed by them. No new events overnight. Active Medications Albuterol Sulfate (Ventolin 0.083% Nebulizer Soln -) 1 amp NEB Q6H PRN PRN Reason: SHORT OF BREATH/WHEEZING Last Admin: 07/16/16 21:52 Dose: 1 amp Albuterol/Ipratropium (Duoneb -) 1 amp NEB Q6H PRN PRN Reason: SHORTNESS OF BREATH Amlodipine Besylate (Norvasc -) 5 mg PO DAILY [facility] Last Admin: 07/18/16 09:09 Dose: 5 mg Atorvastatin Calcium (Lipitor -) 20 mg PO HS [facility] Last Admin: 07/17/16 22:29 Dose: 20 mg Budesonide/Formoterol Fumarate (Symbicort 160/4.5mcg -) 2 puff IH BID [facility] Last Admin: 07/18/16 09:14 Dose: 2 puff Clonidine (Catapres -) 0.2 mg PO BID [facility] Last Admin: 07/18/16 09:09 Dose: 0.2 mg Enoxaparin Sodium (Lovenox -) 40 mg SQ DAILY [facility] Last Admin: 07/18/16 09:09 Dose: 40 mg Sodium Chloride (1/2 Normal Saline) 1,000 mls @ 75 mls/hr IV ASDIR [facility] Last Admin: 07/18/16 09:54 Dose: 75 mls/hr Azithromycin 250 mg/ Dextrose 250 mls @ 250 mls/hr IVPB DAILY [facility] Last Admin: 07/18/16 09:54 Dose: 250 mls/hr Insulin Aspart (Novolog Vial Sliding Scale -) 1 vial SQ ACHS [facility] PRN Reason: Protocol Last Admin: 07/18/16 06:41 Dose: 5 units Insulin Detemir (Levemir Vial) 30 units SQ BID@0700,2200 [facility] Last Admin: 07/18/16 06:41 Dose: 30 units Losartan Potassium (Cozaar -) 50 mg PO DAILY [facility] Last Admin: 07/18/16 09:08 Dose: 50 mg Patient's Own Medication (Non- Formulary) ( Cyclosporine [ Restasis 0.05%] 1 Each) 1 each OU BID [facility] Last Admin: 07/18/16 09:09 Dose: 1 each Ondansetron HCl (Zofran Injection) 4 mg IVPB Q6H PRN PRN Reason: NAUSEA Tiotropium [place] (Spiriva -) 1 puff IH DAILY [facility] Last Admin: 07/18/16 09:10 Dose: 1 inh Review of Systems - Review of Systems Able to Perform ROS?: Yes Constitutional: Yes: Chills, Fever, Malaise, Weakness. No: Unintentional Wgt. Loss, Unexplained wgt Loss HEENTM: Yes: Tearing. No: Eye Pain, Blurred Vision, Ocular Prothesis, Nose Bleeding, Difficulty Swallowing Respiratory: Yes: Cough, Shortness of Breath, SOB with Exertion, SOB at Rest, Wheezing, Productive cough Musculoskeletal: Yes: Muscle Pain *Physical Exam Vital Signs Temperature 98.1 F 07/18/16 06:00 Pulse Rate 56 L 07/18/16 06:00 Respiratory Rate 18 07/18/16 06:00 Blood Pressure 111/63 07/18/16 06:00 O2 Sat by Pulse Oximetry (%) 96 07/17/16 21:00 - Physical Exam GENERAL: Awake, alert, and fully oriented, in no acute distress HEENT: Atraumatic. PERRLA, EOMI. Moist mucosa. No JVD LUNGS: No distress, speaks full sentences, B/L equal air entry, occasional wheeze +, no crackles HEART: Regular rate and rhythm, normal S1 and S2, no murmurs, rubs or gallops, peripheral pulses normal and equal bilaterally. ABDOMEN: Soft, nontender, normoactive bowel sounds.~ No guarding, no rebound.~ No masses EXTREMITIES: Normal inspection, Normal range of motion, no edema.~ No clubbing or cyanosis. Lower right extremity: Healing diabetic ulcer NEUROLOGICAL: Cranial nerves II through XII grossly intact.~ Normal speech, normal gait, no focal sensorimotor deficits SKIN: Warm, Dry, normal turgor, no rashes or lesions noted. CBCD WBC 7.5 K/mm3 (4.0-10.0) 07/15/16 11:30 RBC 4.23 M/mm3 (3.60-5.2) 07/15/16 11:30 Hgb 13.8 GM/dL (10.7-15.3) 07/15/16 11:30 Hct 42.7 % (32.4-45.2) 07/15/16 11:30 MCV 101.0 fl (80-96) H 07/15/16 11:30 MCHC 32.3 g/dl (32.0-36.0) 07/15/16 11:30 RDW 14.6 % (11.6-15.6) 07/15/16 11:30 Plt Count 255 K/MM3 (134-434) D 07/15/16 11:30 MPV 10.9 fl (7.5-11.1) D 07/15/16 11:30 CMP Sodium 138 mmol/L (136-145) 07/18/16 06:30 Potassium 3.9 mmol/L (3.5-5.1) 07/18/16 06:30 Chloride 103 mmol/L (98-107) 07/18/16 06:30 Carbon Dioxide 24 mmol/L (21-32) 07/18/16 06:30 Anion Gap 11 (8-16) 07/18/16 06:30 BUN 10 mg/dL (7-18) D 07/18/16 06:30 Creatinine 0.5 mg/dL (0.55-1.02) L D 07/18/16 06:30 Creat Clearance w eGFR > 60 (>60) 07/18/16 06:30 Calcium 8.4 mg/dL (8.5-10.1) L 07/18/16 06:30 Total Bilirubin 0.2 mg/dL (0.2-1.0) D 07/18/16 06:30 AST 20 U/L (15-37) D 07/18/16 06:30 ALT 30 U/L (12-78) 07/18/16 06:30 Alkaline Phosphatase 94 U/L (45-117) D 07/18/16 06:30 Total Protein 6.1 g/dl (6.4-8.2) L 07/18/16 06:30 Albumin 2.7 g/dl (3.4-5.0) L 07/18/16 06:30 Plan: 55 year old female presented to the ED with complaints of worsening SOB with exertion, progressively getting worse, associated with Cough. Cough was productive, greenish/yellowish sputum, associated with fever. Patient with bipolar disorder and neurology consulted. Mental status appears at baseline and patient without focal deficits. Reports myalgia for a week but possibly due to underlying infection. Recommend pysch eval for bipolar Infectious managment Optimize glucose for DKA Endocrine follow up Myalgia should improve as underlying conditions optimized Neurologically stable this am, conversive and cooperative
--- NOTE | 2016-07-18 13:56 | CON.PSY ---
Psychiatry Consult Chief Complaint: stopped taking my DEpakote three weeks aGO.I am Bipolar, - Previous Psychiatric Treatment Outpatient: More than 6 mos ago Inpatient: One prior admission - Previous Substance Abuse Treatment Outpatient: None Inpatient: None - Reason for Previous Treatment Reason for Previous Treatment: Biploar Illness - Current Medications Current Medications: Active Medications Albuterol Sulfate (Ventolin 0.083% Nebulizer Soln -) 1 amp NEB Q6H PRN PRN Reason: SHORT OF BREATH/WHEEZING Last Admin: 07/16/16 21:52 Dose: 1 amp Albuterol/Ipratropium (Duoneb -) 1 amp NEB Q6H PRN PRN Reason: SHORTNESS OF BREATH Amlodipine Besylate (Norvasc -) 5 mg PO DAILY [facility] Last Admin: 07/18/16 09:09 Dose: 5 mg Atorvastatin Calcium (Lipitor -) 20 mg PO HS [facility] Last Admin: 07/17/16 22:29 Dose: 20 mg Budesonide/Formoterol Fumarate (Symbicort 160/4.5mcg -) 2 puff IH BID [facility] Last Admin: 07/18/16 09:14 Dose: 2 puff Clonidine (Catapres -) 0.2 mg PO BID [facility] Last Admin: 07/18/16 09:09 Dose: 0.2 mg Enoxaparin Sodium (Lovenox -) 40 mg SQ DAILY [facility] Last Admin: 07/18/16 09:09 Dose: 40 mg Sodium Chloride (1/2 Normal Saline) 1,000 mls @ 75 mls/hr IV ASDIR [facility] Last Admin: 07/18/16 09:54 Dose: 75 mls/hr Azithromycin 250 mg/ Dextrose 250 mls @ 250 mls/hr IVPB DAILY [facility] Last Admin: 07/18/16 09:54 Dose: 250 mls/hr Insulin Aspart (Novolog Vial Sliding Scale -) 1 vial SQ ACHS [facility] PRN Reason: Protocol Last Admin: 07/18/16 12:22 Dose: 9 units Insulin Detemir (Levemir Vial) 30 units SQ BID@0700,2200 [facility] Last Admin: 07/18/16 06:41 Dose: 30 units Losartan Potassium (Cozaar -) 50 mg PO DAILY [facility] Last Admin: 07/18/16 09:08 Dose: 50 mg Patient's Own Medication (Non- Formulary) ( Cyclosporine [ Restasis 0.05%] 1 Each) 1 each OU BID [facility] Last Admin: 07/18/16 09:09 Dose: 1 each Ondansetron HCl (Zofran Injection) 4 mg IVPB Q6H PRN PRN Reason: NAUSEA Tiotropium [place] (Spiriva -) 1 puff IH DAILY [facility] Last Admin: 07/18/16 09:10 Dose: 1 inh - Allergies Allergies: Allergies Allergy/AdvReac Type Severity Reaction Status Date / Time No Known Allergies Allergy Verified 07/15/16 10:26 - Current Living Status Usual Living Arrangement: Alone - Current Mental Status Evaluation Appearance: Well Groomed Attitude: Cooperative - Affect Affect: Full Range Appropriateness: Appropriate to Content - Mood Mood: Anxious - Speech/Language Expressive: Coherent Receptive: Age Appropriate Comprehension of Spoken Words - Psychomotor Activity Psychomotor Activity: Hyperactive - Thought Process Thought Process: Intact - Thought Content Hallucinations: Absent Delusions: Absent - Self Perception Self Perception: No Impairment - Cognition Attention: Alert Orientation: Time Memory, Short Term: 3/3 Memory, Remote with Promptin/3 - Concentration Serial Sevens Intact: No Simple Calculations Intact: No - Abstraction Proverb Interpretation: Intact Judgement: Minimally Impaired - Insight Insight: Intact - Impulse Control Impulse Control: Good Control - Suicidal Ideation Suicidal Ideation: No - Homicidal Ideation Homicidal Ideation: No Assessment/Plan sTART dePAKOTE 500MG PO bid
--- NOTE | 2016-07-18 19:35 | PN ---
Progress Note, Physician - Current Medication List Current Medications: Active Medications Albuterol Sulfate (Ventolin 0.083% Nebulizer Soln -) 1 amp NEB Q6H PRN PRN Reason: SHORT OF BREATH/WHEEZING Last Admin: 07/16/16 21:52 Dose: 1 amp Albuterol/Ipratropium (Duoneb -) 1 amp NEB Q6H PRN PRN Reason: SHORTNESS OF BREATH Amlodipine Besylate (Norvasc -) 5 mg PO DAILY [facility] Last Admin: 07/18/16 09:09 Dose: 5 mg Atorvastatin Calcium (Lipitor -) 20 mg PO HS [facility] Last Admin: 07/17/16 22:29 Dose: 20 mg Budesonide/Formoterol Fumarate (Symbicort 160/4.5mcg -) 2 puff IH BID [facility] Last Admin: 07/18/16 09:14 Dose: 2 puff Clonidine (Catapres -) 0.2 mg PO BID [facility] Last Admin: 07/18/16 09:09 Dose: 0.2 mg Divalproex Sodium (Depakote -) 500 mg PO BID [facility] Enoxaparin Sodium (Lovenox -) 40 mg SQ DAILY [facility] Last Admin: 07/18/16 09:09 Dose: 40 mg Sodium Chloride (1/2 Normal Saline) 1,000 mls @ 75 mls/hr IV ASDIR [facility] Last Admin: 07/18/16 09:54 Dose: 75 mls/hr Azithromycin 250 mg/ Dextrose 250 mls @ 250 mls/hr IVPB DAILY [facility] Last Admin: 07/18/16 09:54 Dose: 250 mls/hr Insulin Aspart (Novolog Vial Sliding Scale -) 1 vial SQ ACHS [facility] PRN Reason: Protocol Last Admin: 07/18/16 17:44 Dose: 7 units Insulin Detemir (Levemir Vial) 30 units SQ BID@0700,2200 [facility] Last Admin: 07/18/16 06:41 Dose: 30 units Losartan Potassium (Cozaar -) 50 mg PO DAILY [facility] Last Admin: 07/18/16 09:08 Dose: 50 mg Patient's Own Medication (Non- Formulary) ( Cyclosporine [ Restasis 0.05%] 1 Each) 1 each OU BID [facility] Last Admin: 07/18/16 09:09 Dose: 1 each Ondansetron HCl (Zofran Injection) 4 mg IVPB Q6H PRN PRN Reason: NAUSEA Tiotropium [place] (Spiriva -) 1 puff IH DAILY [facility] Last Admin: 07/18/16 09:10 Dose: 1 inh - Objective Vital Signs: Vital Signs Temperature 98.2 F 07/18/16 16:20 Pulse Rate 65 07/18/16 16:20 Respiratory Rate 20 07/18/16 16:20 Blood Pressure 128/65 07/18/16 16:20 O2 Sat by Pulse Oximetry (%) 96 07/18/16 14:38 Labs: CBC, BMP 07/18/16 06:30 Problem List - Problems (1) DKA (diabetic ketoacidoses) Code(s): E13.10 - OTH DIABETES MELLITUS WITH KETOACIDOSIS WITHOUT COMA (2) Asthma exacerbation Code(s): J45.901 - UNSPECIFIED ASTHMA WITH (ACUTE) EXACERBATION (3) Elevated lactic acid level Code(s): E87.2 - ACIDOSIS (4) Morbid obesity Code(s): E66.01 - MORBID (SEVERE) OBESITY DUE TO EXCESS CALORIES (5) HTN (hypertension) Code(s): I10 - ESSENTIAL (PRIMARY) HYPERTENSION (6) HLD (hyperlipidemia) Code(s): E78.5 - HYPERLIPIDEMIA, UNSPECIFIED
[2016-07-18] MEDS ORDERED: INSULIN (NOVOLOG) ASPART 100 UNITS/ML 10ML VIAL ONE (21:16)
[2016-07-18] MEDS: ATORVASTATIN CA 20 MG TABLET (FP) PO SCH (21:19)
[2016-07-18] MEDS: DIVALPROEX SODIUM 500 MG TABLET E.C. PO SCH (21:19)
[2016-07-19] MEDS: SODIUM CHLORIDE 0.45% 1,000 ML IV SCH (06:12)
[2016-07-19] MEDS: INSULIN SLIDING SCALE (NOVOLOG) 1 VIAL SQ SCH ×4 (06:19→21:45)
[2016-07-19] MEDS: INSULIN DETEMIR 100 UNITS/ML MDV SQ SCH ×2 (06:19→21:45)
[2016-07-19] MEDS: amLODIPine BESYLATE 5 MG TABLET (FP) PO SCH (10:20)
[2016-07-19] MEDS: BUDESONIDE/FORMETEROL FUMARATE 160/4.5 mcg INHALER IH SCH ×2 (10:21→21:46)
[2016-07-19] MEDS: TIOTROPIUM BROMIDE 18 MCG/INH (DEVICE W/ 5 CAPSULES) IH SCH (10:21)
[2016-07-19] MEDS: LOSARTAN POTASSIUM 50 MG TABLET (FP) PO SCH (10:21)
[2016-07-19] MEDS: AZITHROMYCIN IVPB 250 MG in DEXTROSE 5%-WATER - 250 ML IVPB SCH (10:21)
[2016-07-19] MEDS: cloNIDine HCL 0.1 MG TABLET PO SCH (10:21)
[2016-07-19] MEDS: CYCLOSPORINE OU SCH ×2 (10:22→21:45)
[2016-07-19] MEDS: ENOXAPARIN NA (PORCINE) 40 MG/0.4 ML DISP.SYRIN SQ SCH (10:22)
[2016-07-19] MEDS: DIVALPROEX SODIUM 500 MG TABLET E.C. PO SCH ×2 (10:22→21:46)
--- NOTE | 2016-07-19 10:34 | PN ---
Progress Note (short form) - Note Progress Note: Neurology History of Present Illness 55 year old female presented to the ED with complaints of worsening SOB with exertion, progressively getting worse, associated with Cough. Cough was productive, greenish/yellowish sputum, associated with fever. Patient with bipolar disorder and neurology consulted. Mental status appears at baseline and patient without focal deficits. Reports myalgia for a week but possibly due to underlying infection. Seen by psych for bipolar disorder, was restarted on Depakote 500mg twice daily. Active Medications Albuterol Sulfate (Ventolin 0.083% Nebulizer Soln -) 1 amp NEB Q6H PRN PRN Reason: SHORT OF BREATH/WHEEZING Last Admin: 07/16/16 21:52 Dose: 1 amp Albuterol/Ipratropium (Duoneb -) 1 amp NEB Q6H PRN PRN Reason: SHORTNESS OF BREATH Amlodipine Besylate (Norvasc -) 5 mg PO DAILY [facility] Last Admin: 07/19/16 10:20 Dose: 5 mg Atorvastatin Calcium (Lipitor -) 20 mg PO HS [facility] Last Admin: 07/18/16 21:19 Dose: 20 mg Budesonide/Formoterol Fumarate (Symbicort 160/4.5mcg -) 2 puff IH BID [facility] Last Admin: 07/19/16 10:21 Dose: 2 puff Clonidine (Catapres -) 0.2 mg PO BID [facility] Last Admin: 07/19/16 10:21 Dose: 0.2 mg Divalproex Sodium (Depakote -) 500 mg PO BID [facility] Last Admin: 07/19/16 10:22 Dose: 500 mg Enoxaparin Sodium (Lovenox -) 40 mg SQ DAILY [facility] Last Admin: 07/19/16 10:22 Dose: 40 mg Sodium Chloride (1/2 Normal Saline) 1,000 mls @ 75 mls/hr IV ASDIR [facility] Last Admin: 07/19/16 06:12 Dose: Not Given Azithromycin 250 mg/ Dextrose 250 mls @ 250 mls/hr IVPB DAILY [facility] Last Admin: 07/19/16 10:21 Dose: 250 mls/hr Insulin Aspart (Novolog Vial Sliding Scale -) 1 vial SQ ACHS [facility] PRN Reason: Protocol Last Admin: 07/19/16 06:19 Dose: 7 units Insulin Detemir (Levemir Vial) 30 units SQ BID@0700,2200 [facility] Last Admin: 07/19/16 06:19 Dose: 30 units Losartan Potassium (Cozaar -) 50 mg PO DAILY [facility] Last Admin: 07/19/16 10:21 Dose: 50 mg Patient's Own Medication (Non- Formulary) ( Cyclosporine [ Restasis 0.05%] 1 Each) 1 each OU BID [facility] Last Admin: 07/19/16 10:22 Dose: 1 each Ondansetron HCl (Zofran Injection) 4 mg IVPB Q6H PRN PRN Reason: NAUSEA Tiotropium [place] (Spiriva -) 1 puff IH DAILY [facility] Last Admin: 07/19/16 10:21 Dose: 1 inhaler *Physical Exam Last Vital Signs Temp Pulse Resp BP Pulse Ox 99 F 64 18 140/88 96 07/19/16 06:18 07/19/16 06:18 07/19/16 06:18 07/19/16 06:18 07/18/16 14:38 - Physical Exam GENERAL: Awake, alert, and fully oriented, in no acute distress HEENT: Atraumatic. PERRLA, EOMI. Moist mucosa. No JVD LUNGS: No distress, speaks full sentences, B/L equal air entry, occasional wheeze +, no crackles HEART: Regular rate and rhythm, normal S1 and S2, no murmurs, rubs or gallops, peripheral pulses normal and equal bilaterally. ABDOMEN: Soft, nontender, normoactive bowel sounds.~ No guarding, no rebound.~ No masses EXTREMITIES: Normal inspection, Normal range of motion, no edema.~ No clubbing or cyanosis. Lower right extremity: Healing diabetic ulcer NEUROLOGICAL: Cranial nerves II through XII grossly intact.~ Normal speech, normal gait, no focal sensorimotor deficits SKIN: Warm, Dry, normal turgor, no rashes or lesions noted. CBCD WBC 7.5 K/mm3 (4.0-10.0) 07/15/16 11:30 RBC 4.23 M/mm3 (3.60-5.2) 07/15/16 11:30 Hgb 13.8 GM/dL (10.7-15.3) 07/15/16 11:30 Hct 42.7 % (32.4-45.2) 07/15/16 11:30 MCV 101.0 fl (80-96) H 07/15/16 11:30 MCHC 32.3 g/dl (32.0-36.0) 07/15/16 11:30 RDW 14.6 % (11.6-15.6) 07/15/16 11:30 Plt Count 255 K/MM3 (134-434) D 07/15/16 11:30 MPV 10.9 fl (7.5-11.1) D 07/15/16 11:30 CMP Sodium 138 mmol/L (136-145) 07/18/16 06:30 Potassium 3.9 mmol/L (3.5-5.1) 07/18/16 06:30 Chloride 103 mmol/L (98-107) 07/18/16 06:30 Carbon Dioxide 24 mmol/L (21-32) 07/18/16 06:30 Anion Gap 11 (8-16) 07/18/16 06:30 BUN 10 mg/dL (7-18) D 07/18/16 06:30 Creatinine 0.5 mg/dL (0.55-1.02) L D 07/18/16 06:30 Creat Clearance w eGFR > 60 (>60) 07/18/16 06:30 Calcium 8.4 mg/dL (8.5-10.1) L 07/18/16 06:30 Total Bilirubin 0.2 mg/dL (0.2-1.0) D 07/18/16 06:30 AST 20 U/L (15-37) D 07/18/16 06:30 ALT 30 U/L (12-78) 07/18/16 06:30 Alkaline Phosphatase 94 U/L (45-117) D 07/18/16 06:30 Total Protein 6.1 g/dl (6.4-8.2) L 07/18/16 06:30 Albumin 2.7 g/dl (3.4-5.0) L 07/18/16 06:30 Plan: 55 year old female presented to the ED with complaints of worsening SOB with exertion, progressively getting worse, associated with Cough. Cough was productive, greenish/yellowish sputum, associated with fever. Patient with bipolar disorder and neurology consulted. Mental status appears at baseline and patient without focal deficits. Reports myalgia for a week but possibly due to underlying infection. Restart depakote 500mg twice daily as per psych Infectious managment Optimize glucose for DKA Endocrine follow up Myalgia should improve as underlying conditions optimized Neurologically stable at this time
--- NOTE | 2016-07-19 13:01 | PN ---
Progress Note (short form) - Note Progress Note: PULMONARY OFFERS NO COMPLAINTS VSS/AFEBRILE ANICTERIC CLEAR S1S2 BS+ NO EDEMA MEDS/NOTES/IMAGING/MICRO NOTED (1) Asthma exacerbation Code(s): J45.901 - UNSPECIFIED ASTHMA WITH (ACUTE) EXACERBATION (2) Cough Code(s): R05 - COUGH (3) Diabetes mellitus Code(s): E11.9 - TYPE 2 DIABETES MELLITUS WITHOUT COMPLICATIONS (4) Elevated lactic acid level Code(s): E87.2 - ACIDOSIS (5) HTN (hypertension) Code(s): I10 - ESSENTIAL (PRIMARY) HYPERTENSION (6) Morbid obesity Code(s): E66.01 - MORBID (SEVERE) OBESITY DUE TO EXCESS CALORIES (7) Asthmatic bronchitis Code(s): J45.909 - UNSPECIFIED ASTHMA, UNCOMPLICATED (8) Hemoptysis Code(s): R04.2 - HEMOPTYSIS (9) DKA (diabetic ketoacidoses) Code(s): E13.10 - OTH DIABETES MELLITUS WITH KETOACIDOSIS WITHOUT COMA PLAN: Symbicort BD [place] Spiriva ABX O2 as needed Glycemic control systemic steroids not needed Incentive Spirometry / OOB to chair Kevin PUENTE MD
--- NOTE | 2016-07-19 20:25 | PN ---
Progress Note, Physician - Current Medication List Current Medications: Active Medications Albuterol Sulfate (Ventolin 0.083% Nebulizer Soln -) 1 amp NEB Q6H PRN PRN Reason: SHORT OF BREATH/WHEEZING Last Admin: 07/16/16 21:52 Dose: 1 amp Albuterol/Ipratropium (Duoneb -) 1 amp NEB Q6H PRN PRN Reason: SHORTNESS OF BREATH Amlodipine Besylate (Norvasc -) 5 mg PO DAILY [facility] Last Admin: 07/19/16 10:20 Dose: 5 mg Atorvastatin Calcium (Lipitor -) 20 mg PO HS [facility] Last Admin: 07/18/16 21:19 Dose: 20 mg Budesonide/Formoterol Fumarate (Symbicort 160/4.5mcg -) 2 puff IH BID [facility] Last Admin: 07/19/16 10:21 Dose: 2 puff Clonidine (Catapres -) 0.2 mg PO BID@1000,1800 [facility] Divalproex Sodium (Depakote -) 500 mg PO BID [facility] Last Admin: 07/19/16 10:22 Dose: 500 mg Enoxaparin Sodium (Lovenox -) 40 mg SQ DAILY [facility] Last Admin: 07/19/16 10:22 Dose: 40 mg Sodium Chloride (1/2 Normal Saline) 1,000 mls @ 75 mls/hr IV ASDIR [facility] Last Admin: 07/19/16 06:12 Dose: Not Given Azithromycin 250 mg/ Dextrose 250 mls @ 250 mls/hr IVPB DAILY [facility] Last Admin: 07/19/16 10:21 Dose: 250 mls/hr Insulin Aspart (Novolog Vial Sliding Scale -) 1 vial SQ ACHS [facility] PRN Reason: Protocol Last Admin: 07/19/16 18:35 Dose: 2 units Insulin Detemir (Levemir Vial) 30 units SQ BID@0700,2200 [facility] Last Admin: 07/19/16 06:19 Dose: 30 units Losartan Potassium (Cozaar -) 50 mg PO DAILY [facility] Last Admin: 07/19/16 10:21 Dose: 50 mg Patient's Own Medication (Non- Formulary) ( Cyclosporine [ Restasis 0.05%] 1 Each) 1 each OU BID [facility] Last Admin: 07/19/16 10:22 Dose: 1 each Ondansetron HCl (Zofran Injection) 4 mg IVPB Q6H PRN PRN Reason: NAUSEA Tiotropium [place] (Spiriva -) 1 puff IH DAILY [facility] Last Admin: 07/19/16 10:21 Dose: 1 inhaler - Objective Vital Signs: Vital Signs Temperature 97 F L 07/19/16 16:20 Pulse Rate 66 07/19/16 16:20 Respiratory Rate 20 07/19/16 16:20 Blood Pressure 136/79 07/19/16 16:20 O2 Sat by Pulse Oximetry (%) 98 07/19/16 12:19 Labs: CBC, BMP 07/18/16 06:30 Problem List - Problems (1) DKA (diabetic ketoacidoses) Code(s): E13.10 - OTH DIABETES MELLITUS WITH KETOACIDOSIS WITHOUT COMA (2) Asthma exacerbation Code(s): J45.901 - UNSPECIFIED ASTHMA WITH (ACUTE) EXACERBATION (3) Elevated lactic acid level Code(s): E87.2 - ACIDOSIS (4) Morbid obesity Code(s): E66.01 - MORBID (SEVERE) OBESITY DUE TO EXCESS CALORIES (5) HTN (hypertension) Code(s): I10 - ESSENTIAL (PRIMARY) HYPERTENSION (6) HLD (hyperlipidemia) Code(s): E78.5 - HYPERLIPIDEMIA, UNSPECIFIED
[2016-07-19] MEDS: ATORVASTATIN CA 20 MG TABLET (FP) PO SCH (21:46)
[2016-07-20] MEDS: ALBUTEROL SO4 0.083% IH SOL 2.5 MG/3 ML VIAL.NEB. NEB PRN (00:27)
[2016-07-20] MEDS: INSULIN DETEMIR 100 UNITS/ML MDV SQ SCH (06:23)
[2016-07-20] MEDS: INSULIN SLIDING SCALE (NOVOLOG) 1 VIAL SQ SCH ×2 (06:23→11:41)
[2016-07-20] MEDS: SODIUM CHLORIDE 0.45% 1,000 ML IV SCH (06:23)
[2016-07-20 06:37] VITALS: TEMP 97.7
[2016-07-20] MEDS ORDERED: INSULIN (NOVOLOG MIX 70/30) 100 UNITS/ML MDV SQ ONE (06:50)
[2016-07-20] MEDS ORDERED: INSULIN (NOVOLOG) ASPART 100 UNITS/ML 10ML VIAL ONE (06:50)
[2016-07-20] MEDS ORDERED: cloNIDine HCL 0.1 MG TABLET PO SCH (10:00)
[2016-07-20] MEDS: AZITHROMYCIN IVPB 250 MG in DEXTROSE 5%-WATER - 250 ML IVPB SCH (10:09)
[2016-07-20] MEDS: LOSARTAN POTASSIUM 50 MG TABLET (FP) PO SCH (10:09)
[2016-07-20] MEDS: CYCLOSPORINE OU SCH (10:10)
[2016-07-20] MEDS: ENOXAPARIN NA (PORCINE) 40 MG/0.4 ML DISP.SYRIN SQ SCH (10:10)
[2016-07-20] MEDS: amLODIPine BESYLATE 5 MG TABLET (FP) PO SCH (10:10)
[2016-07-20] MEDS: DIVALPROEX SODIUM 500 MG TABLET E.C. PO SCH (10:10)
[2016-07-20] MEDS: BUDESONIDE/FORMETEROL FUMARATE 160/4.5 mcg INHALER IH SCH (10:11)
[2016-07-20] MEDS: TIOTROPIUM BROMIDE 18 MCG/INH (DEVICE W/ 5 CAPSULES) IH SCH (10:11)
[2016-07-20 12:56] VITALS: BP 145/90; PULSE 77
== END 2016-07-20 12:14 | disposition home or self-care (01) | DRG 638 ==
LOC: JER 10:18 → JERBED 18:04 → J8W 20:48
PROVIDERS: ADMIT Internal Medicine; ATTEND Internal Medicine
DX: E13.10 Other specified diabetes mellitus with ketoacidosis without coma (principal); J45.901 Unspecified asthma with (acute) exacerbation; R04.2 Hemoptysis; Z68.37 Body mass index [BMI] 37.0-37.9, adult; I10 Essential (primary) hypertension; E66.01 Morbid (severe) obesity due to excess calories; E78.5 Hyperlipidemia, unspecified; F31.9 Bipolar disorder, unspecified; E86.0 Dehydration; M79.1 Myalgia; J06.9 Acute upper respiratory infection, unspecified; Z87.891 Personal history of nicotine dependence
CPT/HCPCS: 36415; 71010-TC; 71250-TC; 80048; 80053; 81003; 82009; 82803; 82947; 83036; 83605; 84484; 84703; 85025; 87040; 87081; 87254; 87804; 93005; 93010; 94010; 94640; 99282-25

== ENCOUNTER 2017-06-30 09:02 | Emergency (ER) | payer OTHER ==
[2017-06-30 09:15] VITALS: TEMP 98.1; BMI 38.7
--- NOTE | 2017-06-30 09:22 | PDOC ---
History of Present Illness - General History Source: Patient Exam Limitations: No Limitations - History of Present Illness Initial Comments: 06/30/17 09:55 The patient is a 56 year old female, with a significant past medical history of diabetes mellitus, asthma, morbid obesity, hyperlipidemia, hypertension, who presents to the emergency department complaining of high blood sugar beginning this morning. The patient reports she took her blood sugar at home and reported a value >400. However, patient reports the home blood sugar device could be greater than 400. The patient reports taking 12 units of Humalog and Levemir but her blood sugar was still over 400 when she checked again. The patient reports symptoms of anxiety, shakiness in the hands and feet, mild increase in urinary frequency, sweating and palpitations beginning last night. The patient also reports a feeling of intermittent chest pain for approx. 2 months described as a clenching sensation. The patient reports she was hospitalized approx. one year ago for DKA and was admitted to the ICU for a couple of days. She denies recent fevers, chills, headache or dizziness. She denies recent nausea, vomit, diarrhea or constipation. She denies recent dysuria, frequency, urgency or hematuria. She denies shortness of breath. Allergies: NKA Past surgical history: None reported. Social history: Quit smoking 8 years ago, prior 2 pack a day smoker. Occasional alcohol use. Primary Care Physician: Dr. Jessika Mendoza <Fernando Kang - Last Filed: 06/30/17 10:40> <Rosalinda Wyatt - Last Filed: 06/30/17 14:06> - General Chief Complaint: Blood Sugar Problem Stated Complaint: PALPITATIONS, BLOOD SUGAR PROBLEM Time Seen by Provider: 06/30/17 09:21 Past History <Fernando Kang - Last Filed: 06/30/17 10:40> - Past Medical History COPD: No Diabetes: Yes HTN: Yes Hypercholesterolemia: Yes Psychiatric Problems: Yes (BI-POLAR) - Immunization History Immunization Up to Date: Yes - Suicide/Smoking/Psychosocial Hx Smoking History: Former smoker Have you smoked in the past 12 months: No Number of Cigarettes Smoked Daily: 0 If you are a former smoker, when did you quit?: 8 years ago Information on smoking cessation initiated: No Hx Alcohol Use: No Drug/Substance Use Hx: No Substance Use Type: None Hx Substance Use Treatment: No <Leatha Wyattbeth - Last Filed: 06/30/17 14:06> - Past Medical History Allergies/Adverse Reactions: Allergies Allergy/AdvReac Type Severity Reaction Status Date / Time No Known Allergies Allergy Verified 06/30/17 09:07 Home Medications: Ambulatory Orders Cyclosporine [Restasis] 1 each OP BID 07/15/16 Albuterol 2.5/Ipratropium 0.5 [Duoneb -] 1 amp NEB Q6H PRN #0 amp 07/20/16 Amlodipine Besylate [Norvasc -] 5 mg PO DAILY tablet 07/20/16 Atorvastatin [place] [Lipitor] 20 mg PO HS tablet 07/20/16 Clonidine HCl [Catapres -] 0.2 mg PO BID tablet 07/20/16 Insulin (Levemir) [Levemir Vial] 30 units SQ BID@0700,2200 #1 ml 07/20/16 Tiotropium [place] [Spiriva] 1 puff IH DAILY #1 inh 07/20/16 Aripiprazole 20 mg PO DAILY 06/30/17 Clonazepam [Klonopin] 1 mg PO DAILY 06/30/17 Divalproex [Depakote -] 1,500 mg PO HS 06/30/17 Escitalopram Oxalate [Lexapro -] 20 mg PO DAILY 06/30/17 Insulin Lispro [Humalog] 100 unit SQ ASDIR 06/30/17 Losartan Potassium [Cozaar -] 100 mg PO DAILY 06/30/17 Review of Systems - Review of Systems Comments:: 06/30/17 09:56 GENERAL/CONSTITUTIONAL: +Anxiety. No fever or chills. No weakness. HEAD, EYES, EARS, NOSE AND THROAT: No change in vision. No ear pain or discharge. No sore throat. CARDIOVASCULAR: +Chest pain. +Palpitations. No shortness of breath. RESPIRATORY: No cough, wheezing, or hemoptysis. GASTROINTESTINAL: No nausea, vomiting, diarrhea or constipation. GENITOURINARY: +Frequency. No dysuria. MUSCULOSKELETAL: No joint or muscle swelling or pain. No neck or back pain. SKIN: No rash NEUROLOGIC: No headache, vertigo, loss of consciousness, or change in strength/ sensation. ENDOCRINE: No increased thirst. No abnormal weight change. HEMATOLOGIC/LYMPHATIC: No anemia, easy bleeding, or history of blood clots. ALLERGIC/IMMUNOLOGIC: No hives or skin allergy. <Fernando Kang - Last Filed: 06/30/17 10:40> *Physical Exam - Vital Signs Last Vital Signs Temp Pulse Resp BP Pulse Ox 98.1 F 78 18 139/75 100 06/30/17 09:08 06/30/17 09:08 06/30/17 09:08 06/30/17 09:08 06/30/17 09:08 <KangFernando - Last Filed: 06/30/17 10:40> - Vital Signs Last Vital Signs Temp Pulse Resp BP Pulse Ox 98.1 F 78 18 139/75 100 06/30/17 09:08 06/30/17 09:08 06/30/17 09:08 06/30/17 09:08 06/30/17 09:08 - Physical Exam Comments: GENERAL: Awake, alert, and fully oriented, in no acute distress HEAD: No signs of trauma EYES: PERRLA, EOMI, sclera anicteric, conjunctiva clear ENT: Auricles normal inspection, hearing grossly normal, nares patent, oropharynx clear without exudates. Moist mucosa NECK: Normal ROM, supple, no lymphadenopathy, JVD, or masses LUNGS: Breath sounds equal, clear to auscultation bilaterally. No wheezes, and no crackles HEART: Regular rate and rhythm, normal S1 and S2, no murmurs, rubs or gallops ABDOMEN: Soft, nontender, normoactive bowel sounds. No guarding, no rebound. No masses EXTREMITIES: Normal range of motion. No clubbing or cyanosis. No cords, erythema, or tenderness. RLE with 1+ pitting edema to mid-landin (chronic per patient), with healed anterior lower leg ulcer, associated with hyperpigmentation. LLE non-edematous and normal in appearance. NEUROLOGICAL: Cranial nerves II through XII grossly intact. Normal speech, normal gait SKIN: Warm, Dry, normal turgor, no rashes or lesions noted. PELVIC: +Slight cottage cheese discharge. No external lesions. <Rosalinda Wyatt - Last Filed: 06/30/17 14:06> ED Treatment Course - LABORATORY CBC & Chemistry Diagram: 06/30/17 09:40 06/30/17 09:45 - RADIOLOGY Radiograph Interpretation: 06/30/17 10:40 EXAM#: TYPE/EXAM: RESULT: [id number] RAD/CHEST X-RAY PORTABLE* Evaluate for pneumonia. Single AP portable chest x-ray. Comparison study AP portable chest x-ray July 15, 2016. Unremarkable contour of the cardiomediastinal silhouette. The pulmonary vasculature is normal. No evidence of a pulmonary infiltrates. No large pleural effusion or pneumothorax is seen. No evidence of blunting of the costophrenic angles, effacement of the diaphragms. No bulky hilar adenopathy is seen. Intact visualized osseous structures. EKG leads are noted. Impression. No evidence of pneumonia, CHF, pneumothorax, or large pleural effusion. Reported By: Jose Kohli MD <Fernando Kang - Last Filed: 06/30/17 10:40> - LABORATORY CBC & Chemistry Diagram: 06/30/17 09:40 06/30/17 10:55 <Rosalinda Wyatt - Last Filed: 06/30/17 14:06> Medical Decision Making - Medical Decision Making No signs of skin infection, no UTI, and no pna. Labs within acceptable limits with exception of glucose, which improved with IVF and insulin. Treated for vaginal candidiasis. Stable for DC home with outpatient f/u with Dr. Mendoza. <Rosalinda Wyatt - Last Filed: 06/30/17 14:06> *DC/Admit/Observation/Transfer - Attestations Scribe Attestion: 06/30/17 09:59 Documentation prepared by Fernando Kang, acting as biomedical engineering technologist for Rosalinda Wyatt MD. <Fernando Kang - Last Filed: 06/30/17 10:40> - Discharge Dispostion Admit: No <Rosalinda Wyatt - Last Filed: 06/30/17 14:06> Diagnosis at time of Disposition: Hyperglycemia, Vaginal candidiasis Diabetes mellitus Qualifiers: Diabetes mellitus type: type 2 Diabetes mellitus complication status: with hyperglycemia Diabetes mellitus long-term insulin use: with long-term use Qualified Code(s): E11.65 - Type 2 diabetes mellitus with hyperglycemia - Discharge Dispostion Disposition: HOME Condition at time of disposition: Stable - Referrals Referrals: Jessika Mendoza MD [Primary Care Provider] - - Patient Instructions Printed Discharge Instructions: DI for Vaginal Yeast Infection, DI for Hyperglycemia -- Adult
[2017-06-30 10:17] LABS: BASO % 0.8 % (0-2.0); EOS % 1.4 % (0-4.5); HEMATOCRIT 37.5 % (32.4-45.2); HEMOGLOBIN 12.1 GM/dL (10.7-15.3); LYMPH % 35.9 % (8-40); MCH 30.1 pg (25.7-33.7); MCHC 32.3 g/dl (32.0-36.0); MEAN CELL VOLUME 93.2 fl (80-96); MEAN PLT VOLUME 9.9 fl (7.5-11.1); MONO % 8.6 % (3.8-10.2); NEUT % 53.3 % (42.8-82.8); PLATELET COUNT 329 K/MM3 (134-434); RBC 4.02 M/mm3 (3.60-5.2); RDW 17.5 % (11.6-15.6)
[2017-06-30 10:28] LABS: URINE APPEARANCE CLEAR; URINE BILIRUBIN NEGATIVE (NEGATIVE); URINE BLOOD NEGATIVE (NEGATIVE); URINE COLOR STRAW; URINE GLUCOSE (UA) 3+ (NEGATIVE); URINE KETONE TRACE (NEGATIVE); URINE LEUK ESTERASE NEGATIVE (NEGATIVE); URINE NITRITE NEGATIVE (NEGATIVE); URINE PROTEIN NEGATIVE (NEGATIVE); URINE UROBILINOGEN NEGATIVE mg/dL (0.2-1.0)
[2017-06-30 11:33] LABS: ANION GAP 10 (8-16); BILIRUBIN,TOTAL 0.2 mg/dL (0.2-1.0); BLOOD UREA NITROGEN 18 mg/dL (7-18); CALCIUM 7.9 mg/dL (8.5-10.1); CHLORIDE 100 mmol/L (98-107); CO2 27 mmol/L (21-32); POTASSIUM 4.1 mmol/L (3.5-5.1); SGOT/AST 9 U/L (15-37); SGPT/ALT 18 U/L (12-78); SODIUM 137 mmol/L (136-145); TOT PROT 7.3 g/dl (6.4-8.2)
[2017-06-30] MEDS ORDERED: SODIUM CHLORIDE 1,000 ML IV STA (11:34)
[2017-06-30 11:35] LABS: GLUCOSE,RANDOM 319 mg/dL (74-106)
[2017-06-30 11:41] LABS: ACETONE SERUM NEGATIVE (NEGATIVE); ALK PHOS 99 U/L (45-117)
[2017-06-30] MEDS ORDERED: FLUCONAZOLE 50 MG TABLET PO ONE (12:49)
[2017-06-30] MEDS ORDERED: INSULIN REGULAR HUMAN 100 UNITS/ML *VIAL IVPUSH ONE (12:52)
[2017-06-30] MEDS ORDERED: INSULIN REGULAR HUMAN 100 UNITS/ML *VIAL ONE (12:58)
[2017-06-30] MEDS ORDERED: FLUCONAZOLE 100 MG TABLET (UD) ONE (12:58)
--- NOTE | 2017-06-30 13:01 | EKG ---
Test Reason : Blood Pressure : / mmHG Vent. Rate : 073 BPM Atrial Rate : 073 BPM P-R Int : 180 ms QRS Dur : 072 ms QT Int : 356 ms P-R-T Axes : 053 010 027 degrees QTc Int : 392 ms NORMAL SINUS RHYTHM CANNOT RULE OUT ANTERIOR INFARCT , AGE UNDETERMINED ABNORMAL ECG WHEN COMPARED WITH ECG OF 15-JUL-2016 12:16, PREMATURE ATRIAL COMPLEXES ARE NO LONGER PRESENT Confirmed by CLARY LAZARO MD ([id number]) on 06/30/2017 1:01:12 PM Referred By: Confirmed By:CLARY LAZARO MD
[2017-06-30 13:09] VITALS: BP 127/63; PULSE 56
== END 2017-06-30 14:19 | disposition home or self-care (01) ==
LOC: JER 09:02
PROC: 3E0337Z Introduction of Electrolytic and Water Balance Substance into Peripheral Vein, Percutaneous Approach (ICD-10-PCS; principal; 2017-06-30)
PROC: 3E033VG Introduction of Insulin into Peripheral Vein, Percutaneous Approach (ICD-10-PCS; 2017-06-30)
DX: E11.65 Type 2 diabetes mellitus with hyperglycemia (principal); Z79.4 Long term (current) use of insulin; B37.3 Candidiasis of vulva and vagina
CPT/HCPCS: 36415; 71045-TC; 80053; 81003; 82009; 82550; 82962; 84443; 84484; 85025; 87086; 93005; 93010; 96361; 96374; 99285-25

== ENCOUNTER 2017-10-21 02:48 | Emergency (ER) | payer OTHER ==
[2017-10-21] MEDS ORDERED: ALBUTEROL SO4 2.5/IPRATROPIUM 0.5 INH SOL 3 ML VIAL.NEB. NEB ONE ×2 (02:56→03:03)
[2017-10-21 03:03] VITALS: BP 144/89; PULSE 84; TEMP 97.8; BMI 32.3
--- NOTE | 2017-10-21 03:14 | PDOC ---
History of Present Illness - General Chief Complaint: Asthma Stated Complaint: ASTHMA Time Seen by Provider: 10/21/17 03:12 - History of Present Illness Initial Comments: 10/21/17 03:14 Ms. Davis is a 56 yo female w/ pmh of DM, Asthma, HLD, HTN, morbid obesity, Bipolar disorder who presents for evaluation of shortness of breath with increased mucous / difficulty breathing for several months. She was previously evaluated early in 2017 and given pulmonary follow-up however she reports she never presented for further evaluation. Ms. Davis says that over the last several months she has had increased mucous and difficulty breathing; she does not use oxygen at home and does not have a home nebulizer. Ms. Davis also endorses a recent history of intermittent chest pain and dyspnea on exertion although she denies any chest pain at this time. The patient denies headache and dizziness. Denies fever, chills, nausea, vomit, diarrhea and constipation. Denies dysuria, frequency, urgency and hematuria. Allergies: NKDA Past History - Past Medical History Allergies/Adverse Reactions: Allergies Allergy/AdvReac Type Severity Reaction Status Date / Time No Known Allergies Allergy Verified 10/21/17 03:03 Home Medications: Ambulatory Orders Cyclosporine [Restasis] 1 each OP BID 07/15/16 Albuterol 2.5/Ipratropium 0.5 [Duoneb -] 1 amp NEB Q6H PRN #0 amp 07/20/16 Amlodipine Besylate [Norvasc -] 5 mg PO DAILY tablet 07/20/16 Atorvastatin Ca [Lipitor] 20 mg PO HS tablet 07/20/16 Insulin (Levemir) [Levemir Vial] 30 units SQ BID@0700,2200 #1 ml 07/20/16 Tiotropium [place] [Spiriva] 1 puff IH DAILY #1 inh 07/20/16 cloNIDine HCL [Catapres -] 0.2 mg PO BID tablet 07/20/16 Aripiprazole 5 mg PO DAILY 06/30/17 Clonazepam [Klonopin] 1 mg PO DAILY 06/30/17 Divalproex [Depakote -] 1,500 mg PO HS 06/30/17 Escitalopram Oxalate [Lexapro -] 20 mg PO DAILY 06/30/17 Losartan Potassium [Cozaar -] 100 mg PO DAILY 06/30/17 Insulin (Novolog) [Novolog Flexpen] 0 units SQ ACHS 10/21/17 COPD: Yes Diabetes: Yes HTN: Yes Hypercholesterolemia: Yes Psychiatric Problems: Yes (BI-POLAR, depression) - Immunization History Immunization Up to Date: Yes - Suicide/Smoking/Psychosocial Hx Smoking History: Former smoker Have you smoked in the past 12 months: No Number of Cigarettes Smoked Daily: 0 If you are a former smoker, when did you quit?: 8 years ago Information on smoking cessation initiated: No Hx Alcohol Use: No Drug/Substance Use Hx: No Substance Use Type: None Hx Substance Use Treatment: No Review of Systems - Review of Systems Comments:: 10/21/17 04:09 GENERAL/CONSTITUTIONAL: No fever or chills. No weakness. HEAD, EYES, EARS, NOSE AND THROAT: No change in vision. No ear pain or discharge. No sore throat. CARDIOVASCULAR: +Chest pain / SOB as described. RESPIRATORY: No cough, wheezing, or hemoptysis. GASTROINTESTINAL: No nausea, vomiting, diarrhea or constipation. GENITOURINARY: No dysuria, frequency, or change in urination. MUSCULOSKELETAL: No joint or muscle swelling or pain. No neck or back pain. SKIN: No rash NEUROLOGIC: No headache, vertigo, loss of consciousness, or change in strength/ sensation. ENDOCRINE: No increased thirst. No abnormal weight change HEMATOLOGIC/LYMPHATIC: No anemia, easy bleeding, or history of blood clots. ALLERGIC/IMMUNOLOGIC: No hives or skin allergy. *Physical Exam - Vital Signs Last Vital Signs Temp Pulse Resp BP Pulse Ox 97.8 F 84 24 144/89 96 10/21/17 02:55 10/21/17 02:55 10/21/17 02:55 10/21/17 02:55 10/21/17 02:55 - Physical Exam Comments: 10/21/17 04:10 GENERAL: +Patient morbidly obese. Awake, alert, and fully oriented, in no acute distress HEAD: No signs of trauma, normocephalic, atraumatic EYES: PERRLA, EOMI, sclera anicteric, conjunctiva clear ENT: Auricles normal inspection, hearing grossly normal, nares patent, oropharynx clear without exudates. Moist mucosa NECK: Normal ROM, supple, no lymphadenopathy, JVD, or masses LUNGS: +Diffusely wheezy. Speaks full sentences HEART: Regular rate and rhythm, normal S1 and S2, no murmurs, rubs or gallops, peripheral pulses normal and equal bilaterally. ABDOMEN: Soft, nontender, normoactive bowel sounds. No guarding, no rebound. No masses EXTREMITIES: Normal inspection, Normal range of motion, no edema. No clubbing or cyanosis. NEUROLOGICAL: Cranial nerves II through XII grossly intact. Normal speech, normal gait, no focal sensorimotor deficits SKIN: Warm, Dry, normal turgor, no rashes or lesions noted. Moderate Sedation - Procedure Monitoring Vital Signs: Vital Signs Temp Pulse Resp BP Pulse Ox 97.8 F 84 24 144/89 96 10/21/17 02:55 10/21/17 02:55 10/21/17 02:55 10/21/17 02:55 10/21/17 02:55 ED Treatment Course - LABORATORY CBC & Chemistry Diagram: 10/21/17 05:00 10/21/17 05:00 - Medications Given in the ED: ED Medications Discontinued Medications Generic Name Dose Route Start Last Admin Trade Name Lydia PRN Reason Stop Dose Admin Albuterol/Ipratropium 1 amp 10/21/17 03:03 10/21/17 03:03 Duoneb - NEB 10/21/17 03:04 1 amp NOW ONE Administration Medical Decision Making - Medical Decision Making 10/21/17 05:22 Ms. Davis is a 56 yo female w/ pmh as described who presents for evaluation of shortness of breath. Patient noted to be wheezy on arrival, much improved with duoneb and prednisone treatment. Patient EKG unchanged from previous, regular rate, regular rhythm, normal access, normal interval, no ST elevations or depressions. 10/21/17 05:54 CXR negative for acute pathology; labs grossly unconcerning as below. Discussed need for patient to follow-up with primary care physician today and pulmonology as soon as possible. Patient verbalized understanding and agreement and will comply. Rx for prednisone burst sent to patient's pharmacy. Discharging to home. Laboratory Results - last 24 hr 10/21/17 10/21/17 10/21/17 05:00 05:00 05:00 WBC 8.3 RBC 3.82 Hgb 11.6 Hct 35.5 MCV 92.9 MCH 30.4 MCHC 32.7 RDW 15.3 D Plt Count 324 MPV 9.5 Neutrophils % 59.5 Lymphocytes % 33.1 Monocytes % 6.0 Eosinophils % 0.8 Basophils % 0.6 Nucleated RBC % 0 Sodium 137 Potassium 3.8 Chloride 106 Carbon Dioxide 24 Anion Gap 7 L BUN 14 Creatinine 0.9 Creat Clearance w eGFR > 60 Random Glucose 277 H Calcium 8.1 L Total Bilirubin 0.2 AST 15 ALT 22 Alkaline Phosphatase 101 Creatine Kinase 146 Troponin I < 0.02 Total Protein 7.0 Albumin 3.3 L *DC/Admit/Observation/Transfer Diagnosis at time of Disposition: COPD exacerbation - Discharge Dispostion Disposition: HOME - Referrals Referrals: Jessika Mendoza MD [Primary Care Provider] - Mk Slater MD [Staff Physician] - - Patient Instructions Printed Discharge Instructions: DI for Chronic Obstructive Pulmonary Disease Additional Instructions: Please follow-up with primary care provider and outside plant cable engineer at provided information. A prescription has been called in to your pharmacy, start tomorrow and take all medications as written. Return to ER if any increase in shortness of breath, fever, chills, or other concerning symptoms. - Post Discharge Activity
[2017-10-21] MEDS ORDERED: predniSONE 20 MG TABLET (UD) ONE (04:28)
[2017-10-21] MEDS ORDERED: predniSONE 20 MG TABLET (UD) PO ONE (04:30)
--- NOTE | 2017-10-21 04:50 | PDOC ---
Attending Attestation - Resident Resident Name: Andrés Tovar - ED Attending Attestation I have performed the following: I have examined & evaluated the patient, The case was reviewed & discussed with the resident, I agree w/resident's findings & plan, Exceptions are as noted - HPI HPI: 10/21/17 04:59 The patient is a 56 year old female with a significant PMH asthma, COPD (never intubated, hx of admissions), diabetes, HTN, hyperlipidemia, morbid obesity, and bipolar disorder who presents to the emergency department for evaluation of worsening shortness of breath for the past few months. She reports associated wheezing and increased mucus with her symptoms and states she expectorated a large mucous plug this evening prompting her to come to the ED for evaluation. The patient also notes she has had intermittent chest pain and dyspnea on exertion for the past few months, last reports sternal dull CP for a few seconds earlier this afternoon. The patient denies using a nebulizer or steroids for her symptoms. The patient notes her shortness of breath feels like her prior asthma exacerbations. Denies current CP. She denies fevers and chills. She denies lightheadedness and dizziness. Denies N/V, abd pain, LE edema. Allergies: NKDA PCP: Dr. Mendoza - Physicial Exam PE: 10/21/17 04:47 GENERAL: Awake, alert, and fully oriented, in no acute distress HEAD: No signs of trauma EYES: PERRLA, EOMI, sclera anicteric, conjunctiva clear ENT: Auricles normal inspection, hearing grossly normal, nares patent, oropharynx clear without exudates. Moist mucosa NECK: Normal ROM, supple, no lymphadenopathy, JVD, or masses LUNGS: Breath sounds equal, clear to auscultation bilaterally. No wheezes, and no crackles HEART: Regular rate and rhythm, normal S1 and S2, no murmurs, rubs or gallops ABDOMEN: Soft, nontender, normoactive bowel sounds. No guarding, no rebound. No masses EXTREMITIES: Normal range of motion, no edema. No clubbing or cyanosis. No cords, erythema, or tenderness NEUROLOGICAL: Normal speech, cranial nerves intact, negative pronator drift, 5/ 5 strength in all 4 extremities, normal sensation to light touch in all 4 extremities, normal cerebellar exam, normal gait, normal reflexes and tone SKIN: Warm, Dry, normal turgor, no rashes or lesions noted. - Medical Decision Making 10/21/17 04:47 56 old female with multiple medical problems presents to the emergency department with shortness of breath that she states feels like her asthma exacerbations. Vitals unremarkable. Patient was initially wheezing when examined by the resident physician, however on my evaluation lungs are clear and wheezing has resolved. Patient states that she feels much better after nebs and steroids. She also complained of months of chest pain and dyspnea on exertion intermittently and thus labs including troponin are pending at this time. EKG is unchanged compared to EKG done in June 2017. If labs are normal and patient continues to feel well will likely discharge the patient. 10/21/17 06:22 Labs wnl CXR on my read wnl, will f/u official read lungs are clear, pt feels better has inhaler at home, will prescribe steroids Requests DC home I discussed the physical exam findings, ancillary test results and final diagnoses with the patient. I answered all of the patient's questions. The patient was satisfied with the care received and felt comfortable with the discharge plan and treatment plan. The patient will call their primary care physician within 24 hours to arrange follow-up and will return to the Emergency Department with any new, persistent or worsening symptoms. Heart Score/ECG Review - History History: Slightly suspicious - Electrocardiogram EKG: Normal - Age Age: 45-65 - Risk Factors Based on the list above the patient has:: >/=3 risk factors or Hx atherosclerotic disease - Troponin Troponin: </= normal limit - Score Heart Score - Total: 3 #1 10/21/17 04:59 Twelve-lead EKG was performed and reviewed by me. Normal sinus rhythm, rate 73. No ST elevations or T-wave inversions. Biphasic T waves in V5 through V6. No changes compared to EKG from June 2017.
[2017-10-21 05:12] LABS: BASO % 0.6 % (0-2.0); EOS % 0.8 % (0-4.5); HEMATOCRIT 35.5 % (32.4-45.2); HEMOGLOBIN 11.6 GM/dL (10.7-15.3); LYMPH % 33.1 % (8-40); MCH 30.4 pg (25.7-33.7); MCHC 32.7 g/dl (32.0-36.0); MEAN CELL VOLUME 92.9 fl (80-96); MEAN PLT VOLUME 9.5 fl (7.5-11.1); NEUT % 59.5 % (42.8-82.8); PLATELET COUNT 324 K/MM3 (134-434); RBC 3.82 M/mm3 (3.60-5.2); RDW 15.3 % (11.6-15.6); WHITE BLOOD COUNT 8.3 K/mm3 (4.0-10.0)
[2017-10-21 05:36] LABS: ALBUMIN 3.3 g/dl (3.4-5.0); ALK PHOS 101 U/L (45-117); ANION GAP 7 (8-16); BILIRUBIN,TOTAL 0.2 mg/dL (0.2-1.0); BLOOD UREA NITROGEN 14 mg/dL (7-18); CALCIUM 8.1 mg/dL (8.5-10.1); CHLORIDE 106 mmol/L (98-107); CO2 24 mmol/L (21-32); CREATININE 0.9 mg/dL (0.55-1.02); GLUCOSE,RANDOM 277 mg/dL (74-106); SGPT/ALT 22 U/L (12-78); SODIUM 137 mmol/L (136-145)
[2017-10-21 05:41] LABS: POTASSIUM 3.8 mmol/L (3.5-5.1); SGOT/AST 15 U/L (15-37)
--- NOTE | 2017-10-21 16:14 | EKG ---
Test Reason : Blood Pressure : / mmHG Vent. Rate : 073 BPM Atrial Rate : 073 BPM P-R Int : 194 ms QRS Dur : 084 ms QT Int : 382 ms P-R-T Axes : 057 016 033 degrees QTc Int : 420 ms NORMAL SINUS RHYTHM NONSPECIFIC ST AND T WAVE ABNORMALITY ABNORMAL ECG WHEN COMPARED WITH ECG OF 30-JUN-2017 09:11, NO SIGNIFICANT CHANGE WAS FOUND Confirmed by MD Carlo, Maxx ([id number]) on 10/21/2017 4:14:28 PM Referred By: Confirmed By:Maxx Matos MD
== END 2017-10-21 06:52 | disposition home or self-care (01) ==
LOC: JER 02:48
PROC: 3E0F7GC Introduction of Other Therapeutic Substance into Respiratory Tract, Via Natural or Artificial Opening (ICD-10-PCS; principal; 2017-10-21)
DX: J44.1 Chronic obstructive pulmonary disease with (acute) exacerbation (principal); J45.909 Unspecified asthma, uncomplicated; I10 Essential (primary) hypertension; E78.00 Pure hypercholesterolemia, unspecified; E11.9 Type 2 diabetes mellitus without complications; Z79.4 Long term (current) use of insulin; F31.9 Bipolar disorder, unspecified; E66.9 Obesity, unspecified; Z68.32 Body mass index [BMI] 32.0-32.9, adult
CPT/HCPCS: 36415; 71046-TC-FY; 80053; 82550; 84484; 85025; 93005; 93010; 94640; 99282-25

== ENCOUNTER 2018-06-10 12:27 | Emergency (ER) | payer OTHER ==
[2018-06-10 12:32] VITALS: BP 142/77; PULSE 75; TEMP 98.3; BMI 38.7
--- NOTE | 2018-06-10 13:26 | PDOC ---
History of Present Illness - General Chief Complaint: Ear Problem Stated Complaint: EAR PROBLEM Time Seen by Provider: 06/10/18 12:56 - History of Present Illness Initial Comments: 06/10/18 13:23 57 y/o F with multiple comorbities presents for evaluation of L ear pain atraumatic in onset x1 day no systemic symptoms Past History - Past Medical History Allergies/Adverse Reactions: Allergies Allergy/AdvReac Type Severity Reaction Status Date / Time No Known Allergies Allergy Verified 06/10/18 12:32 Home Medications: Ambulatory Orders Albuterol 2.5/Ipratropium 0.5 [Duoneb -] 1 amp NEB Q6H PRN #0 amp 07/20/16 Atorvastatin Ca [Lipitor] 20 mg PO HS tablet 07/20/16 cloNIDine HCL [Catapres -] 0.2 mg PO BID tablet 07/20/16 Aripiprazole 5 mg PO DAILY 06/30/17 Divalproex [Depakote -] 1,500 mg PO HS 06/30/17 Insulin (Novolog) [Novolog Flexpen] 0 units SQ ACHS 10/21/17 Aclidinium [place] [Tudorza Pressair] 400 mcg IH BID 01/25/18 Amlodipine Besylate 5 mg PO DAILY 01/25/18 Fluticasone Propionate 50 mcg NS DAILY 01/25/18 Fluticasone/Salmeterol [Advair 250-50 Diskus] 1 each IH BID 01/25/18 Glipizide [Glipizide ER] 10 mg PO DAILY 01/25/18 Insulin (Levemir) [Levemir Vial] 30 units SQ BID@0700,2200 01/25/18 Clonazepam 1 mg PO HS 06/10/18 Gabapentin 300 mg PO BID 06/10/18 Losartan Potassium 100 mg PO DAILY 06/10/18 COPD: Yes Diabetes: Yes HTN: Yes Hypercholesterolemia: Yes Psychiatric Problems: Yes (BI-POLAR, depression) - Immunization History Immunization Up to Date: Yes - Suicide/Smoking/Psychosocial Hx Smoking History: Never smoked Have you smoked in the past 12 months: No Number of Cigarettes Smoked Daily: 0 If you are a former smoker, when did you quit?: 8 years ago Information on smoking cessation initiated: No Hx Alcohol Use: No Drug/Substance Use Hx: No Substance Use Type: None Hx Substance Use Treatment: No Review of Systems - Review of Systems Constitutional: No: Fever HEENTM: Yes: Ear Pain *Physical Exam - Vital Signs Last Vital Signs Temp Pulse Resp BP Pulse Ox 98.3 F 75 18 142/77 100 06/10/18 12:30 06/10/18 12:30 06/10/18 12:30 06/10/18 12:30 06/10/18 12:30 - Physical Exam Comments: 06/10/18 13:24 HEAD: NC/AT EYES: Conjuntiva clear Ears: Canals and TM's normal NOSE: No d/c THROAT: Moist mucous membrances, oral pharanx clear, uvula midline NECK: Supple without adenopathy CARDIAC: S1 S2 LUNGS: CTA Full and Equal breath sounds ABDOMEN: Soft NT ND MS: Full ROM in all joints without edema NEUROLOGIC: No gross sensory or motor deficits, NVID SKIN: Normal color and temperature no lesions or rashes Moderate Sedation - Procedure Monitoring Vital Signs: Procedure Monitoring Vital Signs Temperature 98.3 F 06/10/18 12:30 Pulse Rate 75 06/10/18 12:30 Respiratory Rate 18 06/10/18 12:30 Blood Pressure 142/77 06/10/18 12:30 O2 Sat by Pulse Oximetry (%) 100 06/10/18 12:30 Medical Decision Making - Medical Decision Making 06/10/18 13:24 benign exam will refer to ENT *DC/Admit/Observation/Transfer Diagnosis at time of Disposition: Ear pain, left - Discharge Dispostion Disposition: HOME Condition at time of disposition: Stable Decision to Admit order: No - Referrals Referrals: Jessika Mendoza MD [Primary Care Provider] - González Roberson MD [Staff Physician] - - Patient Instructions Printed Discharge Instructions: DI for Ear Pain-Adult Additional Instructions: Turned to the emergency room should symptoms worsen or go unresolved. Follow-up with ENT in one to 2 days for further evaluation and treatment options. Take Tylenol as directed for pain. Continue regular medications as scheduled. - Post Discharge Activity
== END 2018-06-10 13:29 | disposition home or self-care (01) ==
LOC: JERFT 12:27
DX: H92.02 Otalgia, left ear (principal); I10 Essential (primary) hypertension; E11.49 Type 2 diabetes mellitus with other diabetic neurological complication; Z79.4 Long term (current) use of insulin; E78.00 Pure hypercholesterolemia, unspecified; F41.9 Anxiety disorder, unspecified; F32.9 Major depressive disorder, single episode, unspecified; J44.9 Chronic obstructive pulmonary disease, unspecified
CPT/HCPCS: 99281-25

== ENCOUNTER 2018-12-01 11:52 | Inpatient (IN) | payer OTHER ==
--- NOTE | 2018-12-01 13:08 | PDOC ---
History of Present Illness - General Chief Complaint: Syncope/Near Syncope Stated Complaint: FALL Time Seen by Provider: 12/01/18 12:21 - History of Present Illness Initial Comments: 12/01/18 13:03 57 yo F with h/o asthma, bipolar disorder, HTN, DM, HLD who p/w syncope. Patient reports fall from standing height today, while in kitchen. States that prior to fall she experienced rapid head jerking movements, with eyes crossing. Patient was conscious at time of event. This lasted approximately 30 seconds before dropping to floor, and losing consciousness at approximately 1130 AM. Denies h/o similar presentation. Patient on ground for 3-5 minutes before spouse ( at bedside) walked in attempted to wake patient up, with no difficulty. Patient not ambulatory following fall. Now with right sided headache. Patient with absent weakness, urinary incontinence. Patient also reports 3 months of word finding difficulty, and left sided sharp stabbing chest pain at rest and with movement, lasting for 30 minutes and resolving spontaneously. Patient denies vision change, palpitations, cough, wheezing, orthopena, PND, leg swelling/pain, N/V, F,C, SOB, urinary complaints, hematuria, BPR, abdominal pain, diarrhea, constipation, weakness, sensory changes. PMHx: as noted above ROS: as noted SHx: Denies Etoh, IVDA, tobacco use Allergies: NKDA Past History - Past Medical History Allergies/Adverse Reactions: Allergies Allergy/AdvReac Type Severity Reaction Status Date / Time No Known Allergies Allergy Verified 06/10/18 12:32 Home Medications: Ambulatory Orders Albuterol 2.5/Ipratropium 0.5 [Duoneb -] 1 amp NEB Q6H PRN #0 amp 07/20/16 Atorvastatin Ca [Lipitor] 20 mg PO HS tablet 07/20/16 cloNIDine HCL [Catapres -] 0.2 mg PO BID tablet 07/20/16 Aripiprazole 5 mg PO DAILY 06/30/17 Divalproex [Depakote -] 1,500 mg PO HS 06/30/17 Insulin (Novolog) [Novolog Flexpen] 0 units SQ ACHS 10/21/17 Aclidinium [place] [Tudorza Pressair] 400 mcg IH BID 01/25/18 Amlodipine Besylate 5 mg PO DAILY 01/25/18 Fluticasone Propionate 50 mcg NS DAILY 01/25/18 Fluticasone/Salmeterol [Advair 250-50 Diskus] 1 each IH BID 01/25/18 Glipizide [Glipizide ER] 10 mg PO DAILY 01/25/18 Insulin (Levemir) [Levemir Vial] 30 units SQ BID@0700,2200 01/25/18 Clonazepam 1 mg PO HS 06/10/18 Gabapentin 300 mg PO BID 06/10/18 Losartan Potassium 100 mg PO DAILY 06/10/18 COPD: Yes Diabetes: Yes HTN: Yes Hypercholesterolemia: Yes Psychiatric Problems: Yes (BI-POLAR, depression) - Immunization History Immunization Up to Date: Yes - Suicide/Smoking/Psychosocial Hx Smoking History: Former smoker Have you smoked in the past 12 months: No Number of Cigarettes Smoked Daily: 0 If you are a former smoker, when did you quit?: 8 years ago Information on smoking cessation initiated: No Hx Alcohol Use: No Drug/Substance Use Hx: No Substance Use Type: None Hx Substance Use Treatment: No Review of Systems - Review of Systems Comments:: 12/01/18 13:07 GENERAL/CONSTITUTIONAL: No fever or chills. No weakness. HEAD, EYES, EARS, NOSE AND THROAT: No change in vision. No ear pain or discharge. No sore throat. CARDIOVASCULAR: +chest pain. No shortness of breath RESPIRATORY: No cough, wheezing, or hemoptysis. GASTROINTESTINAL: No nausea, vomiting, diarrhea or constipation. GENITOURINARY: No dysuria, frequency, or change in urination. MUSCULOSKELETAL: No joint or muscle swelling or pain. No neck or back pain. SKIN: No rash NEUROLOGIC: LOC, headache. No vertigo, or change in strength/sensation. ENDOCRINE: No increased thirst. No abnormal weight change HEMATOLOGIC/LYMPHATIC: No anemia, easy bleeding, or history of blood clots. ALLERGIC/IMMUNOLOGIC: No hives or skin allergy. *Physical Exam - Vital Signs Last Vital Signs Temp Pulse Resp BP Pulse Ox 97.6 F 76 18 94/64 95 12/01/18 12:13 12/01/18 12:13 12/01/18 12:13 12/01/18 12:13 12/01/18 12:13 - Physical Exam Comments: 12/01/18 13:06 GENERAL: Awake, alert, and fully oriented, in no acute distress HEAD: right sided superior zygomatic hematoma, with 4 cm vertical skin tear. EYES: PERRLA, EOMI, sclera anicteric, conjunctiva clear ENT: Auricles normal inspection, hearing grossly normal, nares patent, oropharynx clear without exudates. Moist mucosa NECK: Normal ROM, supple, no lymphadenopathy, JVD, or masses LUNGS: No distress, speaks full sentences, clear to auscultation bilaterally HEART: Regular rate and rhythm, normal S1 and S2, no murmurs, rubs or gallops, peripheral pulses normal and equal bilaterally. ABDOMEN: Soft, nontender, normoactive bowel sounds. No guarding, no rebound. No masses EXTREMITIES : Normal inspection, Normal range of motion, no edema. No clubbing or cyanosis. NEUROLOGICAL: Cranial nerves II through XII grossly intact. Normal speech, normal gait, no focal sensorimotor deficits BACK: Neg midline, or paraspinal ttp. Neg skin change, bony deformity, step- off. SKIN: Warm, Dry, normal turgor, no rashes or lesions noted ED Treatment Course - LABORATORY CBC & Chemistry Diagram: 12/01/18 13:20 12/01/18 13:03 - ADDITIONAL ORDERS Additional order review: Laboratory Results 12/01/18 12/01/18 12/01/18 13:50 13:03 12:11 PT with INR 12.10 INR 1.03 Sodium Cancelled Potassium Cancelled Chloride Cancelled Carbon Dioxide Cancelled Anion Gap Cancelled BUN Cancelled Creatinine Cancelled Est GFR (CKD-EPI)AfAm Cancelled Est GFR (CKD-EPI)NonAf Cancelled POC Glucometer 234 Random Glucose Cancelled Calcium Cancelled Total Bilirubin Cancelled AST Cancelled ALT Cancelled Alkaline Phosphatase Cancelled Total Protein Cancelled Albumin Cancelled 12/01/18 12/01/18 13:20 12:11 RBC 3.94 MCV 93.1 MCHC 33.1 RDW 15.6 MPV 9.8 Neutrophils % 70.8 Lymphocytes % 21.4 D Monocytes % 6.4 Eosinophils % 0.7 Basophils % 0.7 POC Glucometer 234 - RADIOLOGY Radiology Studies Ordered: Category Date Time Status FACIAL BONES CT W/O CONTRAST [CT] Stat CT Scan 12/01/18 13:[address] WITHOUT CONTRAST [CT] Stat CT Scan 12/01/18 13:04 Ordered CXRPORT [CHEST X-RAY PORTABLE*] [RAD] Stat Radiology 12/01/18 13:03 Completed - Medications Given in the ED: ED Medications Discontinued Medications Generic Name Dose Route Start Last Admin Trade Name Lydia PRN Reason Stop Dose Admin Acetaminophen 1,000 mg 12/01/18 13:34 12/01/18 13:30 Ofirmev Injection - IVPB 12/01/18 13:35 1,000 mg ONCE ONE Administration Sodium Chloride 1,000 mls @ 1,000 mls/hr 12/01/18 13:34 12/01/18 13:50 Normal Saline - IV 12/01/18 14:33 1,000 mls/hr ASDIR STA Administration Medical Decision Making - Medical Decision Making 12/01/18 13:05 57 yo F with h/o asthma, bipolar disorder, HTN, DM, HLD who p/w convulsions, syncope, and collapse. Patient vitals wnl, AF, A&Ox3, GCS 15. BP 94/64, vitals wnl, AF, A&Ox3. Physical exam notable for right sided superior zygomatic hematoma, with 4 cm vertical skin tear. CTH r/o hemorrhage, hematoma, skull fracture. Will assess for VBI/TIA, cardiac dysarrythmias, hypoglycemia, electrolyte abnml, metabolic and toxic derangements, acid-base disturbances, infection. ED Course: 12/01/18 14:16 EKG: NSR with absent JERRI, STD. + LVH. Nml interval duration and axis. Nml R wave progression. Q waves V2-V3. *DC/Admit/Observation/Transfer Diagnosis at time of Disposition: Syncope and collapse - Discharge Dispostion Decision to Admit order: Yes Decision to Admit order Date/Time: Decision to Admit Order Category Date Time Status Decision to Admit to Hospital Routine Admission 12/01/18 13:59 Active - Referrals Referrals: Jessika Mendoza MD [Primary Care Provider] - - Patient Instructions - Post Discharge Activity
[2018-12-01] MEDS ORDERED: ACETAMINOPHEN 1000 MG/100 ML VIAL (NON FORMULARY) IVPB ONE (13:34)
[2018-12-01] MEDS ORDERED: DIPHTH,PERTUSS(ACELL),TET 0.5 ML DISP.SYRIN IM ONE ×3 (13:34→14:53)
[2018-12-01] MEDS ORDERED: SODIUM CHLORIDE 1,000 ML IV STA (13:34)
[2018-12-01] MEDS ORDERED: ACETAMINOPHEN INJECTION 100 ML IVPB ONE (13:48)
[2018-12-01 14:08] LABS: BASO % 0.7 % (0-2.0); EOS % 0.7 % (0-4.5); HEMATOCRIT 36.7 % (32.4-45.2); HEMOGLOBIN 12.1 GM/dL (10.7-15.3); LYMPH % 21.4 % (8-40); MCH 30.8 pg (25.7-33.7); MCHC 33.1 g/dl (32.0-36.0); MEAN CELL VOLUME 93.1 fl (80-96); MEAN PLT VOLUME 9.8 fl (7.5-11.1); MONO % 6.4 % (3.8-10.2); NEUT % 70.8 % (42.8-82.8); PLATELET COUNT 423 K/MM3 (134-434); RBC 3.94 M/mm3 (3.60-5.2); RDW 15.6 % (11.6-15.6); WHITE BLOOD COUNT 13.2 K/mm3 (4.0-10.0)
[2018-12-01 14:16] LABS: INR 1.03 (0.83-1.09); PROTHROMBIN TIME (PATIENT) 12.1 SEC (9.7-13.0)
[2018-12-01 16:25] LABS: EPI CELLS 11.3 /HPF (0-5/HPF); HYALINE CASTS 3 /lpf (0-8); PH,URINE 5.5 (5.0-8.0); URINE APPEARANCE CLOUDY; URINE BACTERIA 361.3 /hpf (NEGATIVE); URINE BILIRUBIN NEGATIVE (NEGATIVE); URINE COLOR YELLOW; URINE GLUCOSE (UA) NEGATIVE (NEGATIVE); URINE KETONE NEGATIVE (NEGATIVE); URINE LEUK ESTERASE NEGATIVE (NEGATIVE); URINE NITRITE NEGATIVE (NEGATIVE); URINE PROTEIN 2+ (NEGATIVE); URINE WBC 7 /hpf (0-5)
--- NOTE | 2018-12-01 17:46 | PDOC ---
Documentation entered by Artur Lee SCRIBE, acting as scribe for Jazz Durham MD. Jazz Durham MD: This documentation has been prepared by the Jesus portillo Joel, SCRIBE, under my direction and personally reviewed by me in its entirety. I confirm that the documentation accurately reflects all work, treatment, procedures, and medical decision making performed by me. Attending Attestation - Resident Resident Name: Lance Stone - [facility] HPI: 12/01/18 14:06 The patient is a 57 year old female with a significant PMH of HTN, DM, hyperlipidemia, asthma, and bipolar disorder who presents to the emergency department for evaluation R side headache and difficulty ambulating s/p syncope this morning. The patient reports experiencing rapid head jerks while standing in the kitchen this morning, after which her eyes suzy closer together and she lost consciousness and fell to the floor, hitting her head. The patients states walking in about 5 minutes after the fall and waking the patient up from the floor, after which he called EMS. The patient denies any medication changes. The patient denies chest pain, shortness of breath, and dizziness. Denies fever, chills, nausea, vomit, diarrhea and constipation. Denies dysuria, frequency, urgency and hematuria. Allergies: NKA Social history: Former smoker. No reported alcohol, or drug use. PCP: Dr. Mendoza - Physicial Exam PE: 12/01/18 17:41 Agree with resident exam. Patient is alert and oriented and in no acute distress. She is alert and oriented and neurologoically intact. CV: Rrr no m/r/ g. Pulm: CTA b/l. - Medical Decision Making 12/01/18 17:44 Pt presents to the ED with seizure vs syncope. Labs and EKG are within normal limits. CT head is negative. Will admit to medicine for continued management.
[2018-12-01 21:04] LABS: ALBUMIN 3.1 g/dl (3.4-5.0); BILIRUBIN,TOTAL 0.4 mg/dL (0.2-1); BLOOD UREA NITROGEN 22.2 mg/dL (7-18); CALCIUM 8.7 mg/dL (8.5-10.1); CREATININE 1.4 mg/dL (0.55-1.3); POTASSIUM 4.4 mmol/L (3.5-5.1)
[2018-12-01] MEDS ORDERED: ASPIRIN 325 MG TABLET PO ONE (21:30)
[2018-12-01] MEDS ORDERED: ASPIRIN 81 MG CHEWABLE TABLETS ONE (21:36)
--- NOTE | 2018-12-01 21:45 | PDOC ---
*Physical Exam - Vital Signs Last Vital Signs Temp Pulse Resp BP Pulse Ox 96.9 F L 72 16 109/75 99 12/01/18 17:25 12/01/18 17:25 12/01/18 17:25 12/01/18 17:25 12/01/18 17:25 ED Treatment Course - LABORATORY CBC & Chemistry Diagram: 12/01/18 13:20 12/01/18 20:00 - ADDITIONAL ORDERS Additional order review: Laboratory Results 12/01/18 12/01/18 12/01/18 20:00 16:09 13:50 PT with INR 12.10 INR 1.03 Sodium 143 Potassium 4.4 Chloride 105 Carbon Dioxide 26 Anion Gap 11 BUN 22.2 H Creatinine 1.4 H Est GFR (CKD-EPI)AfAm 48.90 Est GFR (CKD-EPI)NonAf 42.19 POC Glucometer Random Glucose 211 H Calcium 8.7 Total Bilirubin 0.4 AST 15 ALT 14 Alkaline Phosphatase 87 Creatine Kinase 251 H Troponin I 3.08 H* Total Protein 7.0 Albumin 3.1 L Urine Color Yellow Urine Appearance Cloudy Urine pH 5.5 Ur Specific [place] 1.015 Urine Protein 2+ H Urine Glucose (UA) Negative Urine Ketones Negative Urine Blood Negative Urine Nitrite Negative Urine Bilirubin Negative Urine Urobilinogen 1.0 Ur Leukocyte Esterase Negative Urine WBC (Auto) 7 Urine Casts (Auto) 3 U Epithel Cells (Auto) 11.3 Urine Bacteria (Auto) 361.3 12/01/18 12/01/18 13:03 12:11 PT with INR INR Sodium Cancelled Potassium Cancelled Chloride Cancelled Carbon Dioxide Cancelled Anion Gap Cancelled BUN Cancelled Creatinine Cancelled Est GFR (CKD-EPI)AfAm Cancelled Est GFR (CKD-EPI)NonAf Cancelled POC Glucometer 234 Random Glucose Cancelled Calcium Cancelled Total Bilirubin Cancelled AST Cancelled ALT Cancelled Alkaline Phosphatase Cancelled Creatine Kinase Troponin I Total Protein Cancelled Albumin Cancelled Urine Color Urine Appearance Urine pH Ur Specific [place] Urine Protein Urine Glucose (UA) Urine Ketones Urine Blood Urine Nitrite Urine Bilirubin Urine Urobilinogen Ur Leukocyte Esterase Urine WBC (Auto) Urine Casts (Auto) U Epithel Cells (Auto) Urine Bacteria (Auto) 12/01/18 12/01/18 13:20 12:11 RBC 3.94 MCV 93.1 MCHC 33.1 RDW 15.6 MPV 9.8 Neutrophils % 70.8 Lymphocytes % 21.4 D Monocytes % 6.4 Eosinophils % 0.7 Basophils % 0.7 POC Glucometer 234 - Medications Given in the ED: ED Medications Discontinued Medications Generic Name Dose Route Start Last Admin Trade Name Lydia PRN Reason Stop Dose Admin Acetaminophen 1,000 mg 12/01/18 13:34 12/01/18 13:30 Ofirmev Injection - IVPB 12/01/18 13:35 1,000 mg ONCE ONE Administration Diphtheria/Tetanus/Acell Pertussis 0.5 ml 12/01/18 13:34 12/01/18 14:53 Boostrix - IM 12/01/18 13:35 0.5 ml .ONCE ONE Administration Sodium Chloride 1,000 mls @ 1,000 mls/hr 12/01/18 13:34 12/01/18 13:50 Normal Saline - IV 12/01/18 14:33 1,000 mls/hr ASDIR STA Administration Medical Decision Making - Medical Decision Making 12/01/18 21:34 S/O from day team 57 yo F with h/o asthma, bipolar disorder, HTN, DM, HLD who p/w syncope. Patient reports fall from standing height today, while in kitchen. States that prior to fall she experienced rapid head jerking movements, with eyes crossing. Patient was conscious at time of event. This lasted approximately 30 seconds before dropping to floor, and losing consciousness at approximately 1130 AM. Denies h/o similar presentation. Patient on ground for 3-5 minutes before spouse ( at bedside) walked in attempted to wake patient up, with no difficulty. Patient not ambulatory following fall. Now with right sided headache. Patient with absent weakness, urinary incontinence. Patient also reports 3 months of word finding difficulty, and left sided sharp stabbing chest pain at rest and with movement, lasting for 30 minutes and resolving spontaneously. Patient denies vision change, palpitations, cough, wheezing, orthopena, PND, leg swelling/pain, N/V, F,C, SOB, urinary complaints, hematuria, BPR, abdominal pain, diarrhea, constipation, weakness, sensory changes. 1st trop over 3. Pt on scrap breaker, 325 ASA ordered, 2L NC and Cardiology consulted Admits to intermittent CP for 1 year that has increased in intensity over the past 2 weeks, described as sometimes sharp and sometimes like pressure 12/01/18 22:[address] Crystal in Cardiology, discussed heparin however, decided against AC because of recent head trauma. Would like ICU admission for close monitoring neuro checks, repeat head CT and potentially start heparin. Starting 12.5 metoprolol along with full dose asa, cardiac monitoring and 2L NC. Repeat trop 11: 55 pm Case discussed with Dr. Garrett and ICU team who accepts pt to ICU *DC/Admit/Observation/Transfer Diagnosis at time of Disposition: Syncope and collapse, NSTEMI (non-ST elevated myocardial infarction) - Discharge Dispostion Condition at time of disposition: Stable Decision to Admit order: Yes - Referrals Referrals: Jessika Mendoza MD [Primary Care Provider] - - Patient Instructions - Post Discharge Activity
[2018-12-01] MEDS ORDERED: metoPROLOL SUCCINATE 25 MG TAB.SR.24H (FP) PO ONE (21:57)
[2018-12-01] MEDS ORDERED: MORPHINE SULFATE 2 MG/ML VIAL IVPUSH PRN (23:23)
[2018-12-01] MEDS ORDERED: LACTATED RINGERS SOLUTION 1,000 ML/1,000 ML INFUS.BAG IV SCH (23:45)
--- NOTE | 2018-12-02 00:31 | PN ---
Progress Note (short form) - Note Progress Note: Please refer to dictated consulation, admitted with syncope and chest pains. Time spent 10:20pm to 12:35 AM
[2018-12-02] MEDS ORDERED: GABAPENTIN 300 MG CAPSULE (FP) PO PRN ×2 (00:36→02:17)
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
[2018-12-02] MEDS ORDERED: LORazepam 2 MG/ML SDV VIAL ONE ×2 (01:28→10:58)
--- NOTE | 2018-12-02 02:19 | PDOC ---
*Physical Exam - Vital Signs Last Vital Signs Temp Pulse Resp BP Pulse Ox 96.9 F L 72 16 109/75 99 12/01/18 17:25 12/01/18 17:25 12/01/18 17:25 12/01/18 17:25 12/01/18 17:25 ED Treatment Course - LABORATORY CBC & Chemistry Diagram: 12/01/18 13:20 12/01/18 20:00 - ADDITIONAL ORDERS Additional order review: Laboratory Results 12/01/18 12/01/18 12/01/18 20:00 16:09 13:03 Sodium 143 Cancelled Potassium 4.4 Cancelled Chloride 105 Cancelled Carbon Dioxide 26 Cancelled Anion Gap 11 Cancelled BUN 22.2 H Cancelled Creatinine 1.4 H Cancelled Est GFR (CKD-EPI)AfAm 48.90 Cancelled Est GFR (CKD-EPI)NonAf 42.19 Cancelled Random Glucose 211 H Cancelled Calcium 8.7 Cancelled Total Bilirubin 0.4 Cancelled AST 15 Cancelled ALT 14 Cancelled Alkaline Phosphatase 87 Cancelled Creatine Kinase 251 H Creatine Kinase Index 3.8 CK-MB (CK-2) 9.7 H Troponin I 3.08 H* Total Protein 7.0 Cancelled Albumin 3.1 L Cancelled Urine Color Yellow Urine Appearance Cloudy Urine pH 5.5 Ur Specific [place] 1.015 Urine Protein 2+ H Urine Glucose (UA) Negative Urine Ketones Negative Urine Blood Negative Urine Nitrite Negative Urine Bilirubin Negative Urine Urobilinogen 1.0 Ur Leukocyte Esterase Negative Urine WBC (Auto) 7 Urine Casts (Auto) 3 U Epithel Cells (Auto) 11.3 Urine Bacteria (Auto) 361.3 12/01/18 12/01/18 13:20 12:11 RBC 3.94 MCV 93.1 MCHC 33.1 RDW 15.6 MPV 9.8 Neutrophils % 70.8 Lymphocytes % 21.4 D Monocytes % 6.4 Eosinophils % 0.7 Basophils % 0.7 POC Glucometer 234 - Medications Given in the ED: ED Medications Discontinued Medications Generic Name Dose Route Start Last Admin Trade Name Freq PRN Reason Stop Dose Admin Acetaminophen 1,000 mg 12/01/18 13:34 12/01/18 13:30 Ofirmev Injection - IVPB 12/01/18 13:35 1,000 mg ONCE ONE Administration Aspirin 325 mg 12/01/18 21:30 12/01/18 21:53 Asa - PO 12/01/18 21:31 325 mg ONCE ONE Administration Diphtheria/Tetanus/Acell Pertussis 0.5 ml 12/01/18 13:34 12/01/18 14:53 Boostrix - IM 12/01/18 13:35 0.5 ml .ONCE ONE Administration Sodium Chloride 1,000 mls @ 1,000 mls/hr 12/01/18 13:34 12/01/18 13:50 Normal Saline - IV 12/01/18 14:33 1,000 mls/hr ASDIR STA Administration Metoprolol Succinate 12.5 mg 12/01/18 21:57 12/01/18 23:00 Toprol Xl - PO 12/01/18 21:58 12.5 mg ONCE ONE Administration Medical Decision Making - Medical Decision Making 12/02/18 02:18 Advised by patient's that patient was seizing. Pt was observed to be seizing. 2 mg of ativan ordered. Pt stopped seizing. Airway was maintained throughout. ICU resident notified. Attending at bedside. *DC/Admit/Observation/Transfer Diagnosis at time of Disposition: Syncope and collapse, NSTEMI (non-ST elevated myocardial infarction) - Discharge Dispostion Condition at time of disposition: Stable - Referrals - Patient Instructions - Post Discharge Activity
[2018-12-02] MEDS ORDERED: LACTATED RINGERS SOLUTION 1,000 ML/1,000 ML INFUS.BAG IV SCH (02:39)
[2018-12-02] MEDS ORDERED: levETIRAcetam 500 MG/5 ML INJECTION VIAL IVPB ONE ×2 (03:14→04:30)
[2018-12-02] MEDS ORDERED: DIVALPROEX NA *ER* EXTEND REL 500 MG TABLET.SA (FP) PO ONE (03:30)
[2018-12-02] MEDS: INSULIN (LEVEMIR) 100 UNITS/ML UNITS SQ SCH ×2 (06:00→17:51)
[2018-12-02] MEDS: INSULIN SLIDING SCALE (NOVOLOG) 1 VIAL SQ SCH ×3 (06:00→17:51)
[2018-12-02 06:12] LABS: BASO % 0.4 % (0-2.0); EOS % 0.9 % (0-4.5); HEMATOCRIT 33.2 % (32.4-45.2); HEMOGLOBIN 10.9 GM/dL (10.7-15.3); LYMPH % 31.2 % (8-40); MCH 30.7 pg (25.7-33.7); MCHC 32.9 g/dl (32.0-36.0); MEAN CELL VOLUME 93.3 fl (80-96); MEAN PLT VOLUME 9.6 fl (7.5-11.1); NEUT % 58.5 % (42.8-82.8); PLATELET COUNT 352 K/MM3 (134-434); RBC 3.56 M/mm3 (3.60-5.2); RDW 15.8 % (11.6-15.6); WHITE BLOOD COUNT 10.9 K/mm3 (4.0-10.0)
[2018-12-02 06:31] LABS: BLOOD UREA NITROGEN 23.4 mg/dL (7-18); CALCIUM 8.5 mg/dL (8.5-10.1); CREATININE 1.1 mg/dL (0.55-1.3); PHOSPHOROUS 3.6 mg/dL (2.5-4.9); POTASSIUM 4.3 mmol/L (3.5-5.1)
[2018-12-02 06:47] LABS: INR 1.05 (0.83-1.09); PROTHROMBIN TIME (PATIENT) 12.4 SEC (9.7-13.0)
[2018-12-02] MEDS ORDERED: INSULIN SLIDING SCALE (NOVOLOG) 1 VIAL SQ SCH (07:00)
[2018-12-02] MEDS: glipiZIDE-XL 10 MG TAB.ER.24 (FP) PO SCH (08:19)
[2018-12-02] MEDS ORDERED: ASPIRIN 81 MG CHEWABLE TABLETS PO SCH (10:00)
[2018-12-02] MEDS ORDERED: amLODIPine BESYLATE 5 MG TABLET (FP) PO SCH (10:00)
[2018-12-02] MEDS ORDERED: LOSARTAN POTASSIUM 50 MG TABLET (FP) PO SCH (10:00)
--- NOTE | 2018-12-02 10:23 | HP ---
DATE OF ADMISSION: 12/01/2018 DATE OF DICTATION: 12/02/2018 HISTORY OF PRESENT ILLNESS: This is a 57-year-old female known to have hypertension, bipolar disorder, diabetes, was brought to the emergency room after she had a syncopal episode at home. She was in her in her usual state of health and when she was in the kitchen fell and hit her right side of the face and she was unconscious for some time, when her came in woke her up. She is taking insulin and her other medications. In the emergency room her workup showed . Troponin was 3.8, so got admitted to the Intensive Care here to rule out WI. EKG there was no active changes. PHYSICAL EXAMINATION: General: This morning, patient denies any chest pain. She is awake, alert, oriented and talking to me. Vitals: BP 124/78, pulse 80, respiration 20, temperature 98. HEENT: Unremarkable. Neck: Supple, no JVD. Lungs: Clear. Heart: S1, S2 normal, no S3, S4. Abdomen: Soft. Legs: No edema. Neurologic: Grossly normal. There is a laceration closed on her right side of the face. CT of the head, chest x-ray unremarkable. EKG no acute changes. LABORATORY REPORTS: WBC 10.9, hematocrit 33.2. Chemistry: Electrolytes are normal. BUN 23, creatinine 1.1. Blood sugar 207. CPK MP 9.7, troponin 3.8. This morning it was 2.13. EKG NSR, no acute changes. IMPRESSION: 1. Rule out myocardial infarction. 2. Syncope. 3. Hypertension. 4. Diabetes. Will follow. Continue ICU care today. Will discuss with the transitions manager for further plan. Karey [id number]
[2018-12-02] MEDS: cloNIDine HCL 0.1 MG TABLET PO SCH ×2 (10:30→22:12)
[2018-12-02] MEDS: MUPIROCIN 2% TOPICAL OINTMENT FOR DECOLONIZATION NS SCH ×2 (10:32→23:07)
--- NOTE | 2018-12-02 10:43 | EKG ---
Test Reason : Blood Pressure : / mmHG Vent. Rate : 062 BPM Atrial Rate : 062 BPM P-R Int : 188 ms QRS Dur : 084 ms QT Int : 362 ms P-R-T Axes : 050 002 030 degrees QTc Int : 367 ms NORMAL SINUS RHYTHM NONSPECIFIC T WAVE ABNORMALITY ABNORMAL ECG WHEN COMPARED WITH ECG OF 01-DEC-2018 12:05, NONSPECIFIC T WAVE ABNORMALITY NOW EVIDENT IN ANTERIOR LEADS QT HAS SHORTENED Confirmed by LUCIANO BLANKENSHIP, VICKI ([id number]) on 12/02/2018 10:42:35 AM Referred By: Confirmed By:VICKI WOLF MD
--- NOTE | 2018-12-02 10:44 | EKG ---
Test Reason : Blood Pressure : / mmHG Vent. Rate : 076 BPM Atrial Rate : 076 BPM P-R Int : 192 ms QRS Dur : 084 ms QT Int : 406 ms P-R-T Axes : 051 -15 026 degrees QTc Int : 456 ms NORMAL SINUS RHYTHM MINIMAL VOLTAGE CRITERIA FOR LVH, MAY BE NORMAL VARIANT SEPTAL INFARCT , AGE UNDETERMINED ABNORMAL ECG WHEN COMPARED WITH ECG OF 25-JAN-2018 10:57, SEPTAL INFARCT IS NOW PRESENT Confirmed by LUCIANO BLANKENSHIP, VICKI ([id number]) on 12/02/2018 10:44:10 AM Referred By: Confirmed By:VICKI WOLF MD
--- NOTE | 2018-12-02 11:26 | PN ---
Progress Note (short form) - Note Progress Note: 57 year old AA female admitted with h/o sudden LOC, and possible seizure activity, found her on the floor unresponsive and frothing at the mouth, she sustained injuries to the right side of the face. patient also has being experiecing recurring chest pains for over 1 year.(please refer to consult). Patient had stopped taking klonopin about 1 week ago against medical advise. seizures stopped after receiving IV ativan.She is sedated Active Medications Amlodipine Besylate (Norvasc -) 5 mg PO DAILY [facility] Last Admin: 12/02/18 10:31 Dose: 5 mg Aspirin (Asa -) 81 mg PO DAILY [facility] Last Admin: 12/02/18 10:30 Dose: 81 mg Atorvastatin Calcium (Lipitor -) 20 mg PO HS [facility] Chlorhexidine Gluconate (Hibiclens For Decolonization -) 1 applic TP [facility] Clonidine (Catapres -) 0.2 mg PO BID [facility] Last Admin: 12/02/18 10:30 Dose: 0.2 mg Gabapentin (Neurontin -) 300 mg PO BID PRN PRN Reason: PAIN LEVEL 1-5 Glipizide (Glucotrol Xl -) 10 mg PO DAILY@0700 [facility] Last Admin: 12/02/18 08:19 Dose: 10 mg Insulin Aspart (Novolog Vial Sliding Scale -) 1 vial SQ TIDAC [facility]; Protocol Last Admin: 12/02/18 06:00 Dose: 3 units Insulin Detemir (Levemir Vial) 20 units SQ BIDI [facility] Last Admin: 12/02/18 06:00 Dose: 20 units Levetiracetam (Keppra Injection -) 500 mg IVPB BID [facility] Losartan Potassium (Cozaar -) 50 mg PO DAILY [facility] Last Admin: 12/02/18 10:31 Dose: 50 mg Morphine Sulfate (Morphine Sulfate) 2 mg IVPUSH Q6H PRN PRN Reason: PAIN LEVEL 7 - 10 Mupirocin (Bactroban Ointment (For Decolonization) -) 1 applic NS BID [facility] Stop: 12/07/18 09:59 Last Admin: 12/02/18 10:32 Dose: 1 applic , Paient is sedated. Last Vital Signs Temp Pulse Resp BP Pulse Ox 98.5 F 86 17 122/89 99 12/02/18 06:00 12/02/18 12:00 07/03/19 12:00 12/02/18 12:00 12/02/18 09:00 NECK: Supple, no JVD, carotids 1+, no bruits heard. HEART: PMI not localised, diatant haeart sounds, no murmur or gallops heard. LUNGS: Clear. Abdomen: Soft,nontender,no organomegaly. EXTREMITIES: No calf tenderness or dependent edema. EK12/02/18 1;09. Sinus rhythm, nonspecific ST-T abnormalities, compared to EKG of 12:05 ST segments are isoelectric in leads 1 and aVL Troponin, BNP 12/01/18 12/02/18 20:00 01:30 Troponin I 3.08 H* 2.13 H* CBC, BMP 12/02/18 05:09 12/02/18 05:09 IMPRESSION: 1. Seizure disorder, probably caused by sudden withdrawal of klonopin. 2. Celebrovasular event needs exclusion, ie CVA. 3. NSTEMI 4. IDDM with mulitsystem involvement. 5. HCVD. 6. COPD. 7 Dyslipidemia. RECOMMENDATIONS: 1. Neuro evaluation. 2. MRI of the head. 3. Toxicology. 4. Resume Klonopin. 5. F/u EKG and Trop. levels. Prognosis: Critical.
--- NOTE | 2018-12-02 11:29 | CONS ---
DATE OF CONSULTATION: 12/01/2018 REQUESTING PROVIDER: Jessika Mendoza MD LOCATION: Emergency room. CHIEF COMPLAINT: 1. Loss of consciousness. 2. History of left-sided chest pain. 3. History of exertional dyspnea. 4. History of palpitations. HISTORY OF PRESENT ILLNESS: Patient is a 57-year-old -[place] female with history of insulin-dependent diabetes mellitus, hypertension, hypercholesterolemia, bipolar disorder, history of chronic obstructive pulmonary disease. Patient states that around 10:30 a.m. she took her usual dose of insulin, which consisted of 30 units of Levemir insulin and 10 units of Humalog insulin. She did not have breakfast and started cooking. Around 11 o'clock she started noticing that her gait was unsteady. She developed visual disturbances, which included blurring and double vision. She also experienced a headache and lost consciousness, hit the floor. A few minutes later, her found her on the floor. She was frothing at the mouth, was in the process of gaining consciousness. On questioning, she denies any loss of sphincter control or tongue biting. 911 was called and she was transported to the hospital. The states that on regaining consciousness she was awake, but not responding, which lasted about 3 minutes. Patient, on questioning, gives a history of left parasternal and lower retrosternal sharp chest pains for the past 1 year, which she usually experiences in the later part of the day, accompanied by paresthesias involving the fingers of both hands and pains that radiate to both upper extremities. Recently, the pains have been getting progressively worse and more frequent. There is no clear-cut relationship to it. The pains may last from a few minutes to 2 hours. She has a history of dyspnea on exertion, is unable to climb 1 flight of stairs and the dyspnea is usually accompanied by wheezing. She also gives a history of palpitations, described as a rapid heartbeat for the past few years. Patient states that she has severe fatigue, which is chronic in nature. She denies having a heart murmur. There is no history of rheumatic fever. No history of paroxysmal nocturnal dyspnea or orthopnea. There is a history of chronic cough, at times associated with expectoration. She states that she has been diagnosed to have bronchitis. PAST HISTORY: As mentioned in the history of present illness. SURGICAL HISTORY: Surgery for an ectopic involving the left fallopian tube, status post left cataract extraction and intraocular lens implantation. SOCIAL HISTORY: She was recently. Has a 31-year-old daughter from a previous relationship. Smoked from the age of 17 to 32. States that she was smoking up to 5 packs of cigarettes per day. She also used excessive amounts of crack and cocaine. There is no history of alcohol use. Patient says that she smoked cocaine and crack between the ages of 22 to 32 and she has been drug free for the past 20 years. She has 1 cup of coffee. FAMILY HISTORY: Father at the age of 45 due to alcoholism. Mother at age 71. She had coronary artery disease, was a diabetic, hypertensive, and had coronary artery bypass grafting. She had 2 brothers and 2 sisters. One brother and 1 sister of AIDS. Her sister was murdered and 1 brother is addicted to heroin and cocaine and had been incarcerated for 30 years. ALLERGIES: None reported. DOCUMENTED MEDICATIONS: Are as follows: 1. Atorvastatin 20 mg p.o. daily nightly. 2. DuoNeb 1 ampule by nebulizer q.6 hours p.r.n. 3. Clonidine (Catapres) 0.2 mg p.o. b.i.d. 4. Aripiprazole 5 mg p.o. daily. 5. Depakote 1500 mg p.o. nightly. 6. NovoLog insulin. 7. Tudorza 400 mcg inhaled b.i.d. 8. Amlodipine 5 mg p.o. daily. 9. Glipizide 10 mg p.o. daily before meals. 10. Levemir insulin 30 mg subcutaneously b.i.d. 11. Clonazepam 1 mg p.o. daily (recently discontinued). 12. Gabapentin 300 mg p.o. b.i.d. 13. Losartan 100 mg p.o. daily. 14. Patient was on a sleeping pill, type uncertain. REVIEW OF SYSTEMS: Constitutional: No history of chills, fever, or night sweats. No history of unintentional weight loss. HEENT: See history of present illness. No history of epistaxis or hoarseness. No history of tinnitus. Recent history of pain involving the left ear. Cardiovascular: See history of present illness. Respiratory: See history of present illness. No history of hemoptysis or tuberculosis. Gastrointestinal: No history of nausea, vomiting, melena, or hematemesis. History of occasional gastroesophageal reflux. No history of abdominal pain or discomfort. Neurologic: See history of present illness. No history of documented seizures. Musculoskeletal: History of peripheral neuropathy/paresthesias involving both hands and feet. Patient states she has a history of osteoarthritis. No history of recent myalgias reported. Psychiatric: See history of present illness. Genitourinary: No history of dysuria or hematuria. History of frequency, especially when diabetes is poorly controlled. Endocrine: History of polyuria and polydipsia. No history of intolerance to cold or warm weather. Hematologic/Lymphatic: No history of anemia. Occasional episodes of ecchymosis. No history of bleeding. No history of lymphadenopathy. Skin: History of cellulitis in the right lower extremity related to diabetes mellitus. PHYSICAL EXAMINATION: General: A 57-year-old morbidly obese female at the time of examination was in no acute distress. She was alert and coherent in time and space. There is no pallor or cyanosis. No clubbing or jaundice. Vital Signs: Blood pressure was 109/75 mmHg, pulse was 72 beats per minute and regular, temperature 196.9 degrees Fahrenheit, respirations are 16 per minute, O2 saturations . HEENT: There was a small hematoma below the right lower eyelid, hematoma involving the right gnosticism and there was a superficial laceration over the right gnosticism. There was no arcus senilis or seen. Dentition was poor. Tongue was moist and central. Neck: Supple. No jugular venous distention. Hepatojugular reflux was negative. Carotids were 1+. Upstrokes were normal. No bruits were heard. No thyromegaly was present. Heart: PMI was not localized. No heaves or thrills. Heart sounds were distant. No murmur or gallops were head. Lungs: Clear on auscultation. Abdomen: Obese, soft, and nontender. No hepatosplenomegaly or palpable masses were felt. Bowel sounds were distant. No bruits are appreciated. Extremities: No calf tenderness or dependent edema. Dorsalis pedis pulses were 2+. Posterior tibial pulses were 1+. Femoral pulses were 1 to 2+. There was a dark discoloration involving the lower aspect of the right landin (status post cellulitis). ECG done at 12:05 a.m.: Sinus rhythm with probable intraatrial conduction abnormality, left axis deviation, borderline criteria for LVH (AVL). QS pattern in V2 and possibility of a septal wall infarct cannot be excluded. Poor R-wave progression across the precordial leads with terminal S-waves in V5 and V6 may be related to right ventricular preponderance. ST segment elevations and upward curving in 1 and AVL may be related to early repolarization. Possibility of high lateral wall infarction cannot be excluded. IMAGIN. X-ray of the chest on December 01, 2018: Single AP view of the chest has been submitted. Since January 25, 2018, again noted is a large heart with unfolded aorta and there is no sign of acute chest process. 2. Head CT without contrast, impression: No CT evidence of acute intracranial pathology. A hematoma is noted within the right temporalis muscle. 3. CT of the facial bones without contrast, impression: No fracture is identified. LABORATORY DATA: CMP: Sodium 143, potassium 4.4, chloride 105, CO2 26 millimole/L, BUN 22.2, creatinine 1.4 mg/dL. Random glucose 211. Glucometer 234 mg/dL. Calcium 8.7 mg/dL. AST 15, ALT 14 units/L. Alkaline phosphatase 87 mg/dL. CK was elevated at 251. Troponin was elevated at 3.08, done at 2000 hours. INR 1.03, PT 12.10. IMPRESSION: 1. Syncope preceded by headache, visual disturbances. Etiology to be determined. A. Hypoglycemic episode. B. Arrhythmias. C. Acute coronary event. 2. Chest pain syndrome with elevated troponins and electrocardiographic changes consistent with coronary artery disease and non-ST segment elevation myocardial infarction. 3. Insulin-dependent diabetes mellitus, poorly controlled. 4. Hypertension. Hypertensive cardiovascular disease. 5. Hypercholesterolemia. 6. Clinical presentation of loud snoring and increased somnolence compatible with obstructive sleep apnea. 7. Chronic obstructive pulmonary disease. 8. History of chronic bronchitis. 9. Bipolar disorder. 10. Chronic kidney disease. 11. Peripheral neuropathy related to diabetes mellitus. 12. Morbid obesity. 13. Ecchymosis and hematoma involving the right temporal area below the right eyelid. RECOMMENDATIONS: 1. Follow up CT scan of the head. 2. Follow up ECG and CK UT/troponin levels. 3. Check blood pressures supine and standing. 4. Would advise starting the patient on IV nitroglycerin and titrate according to blood pressure. 5. D-dimer. 6. Ideally, patient should be on IV heparin and beta-antagonist, but will wait until the results of the CT scan and also evaluation of the hematomas. 7. If troponins are elevated, patient should be transferred to tertiary care center for cardiac catheterization. 8. Once the patient is stable, she will require evaluation for obstructive sleep apnea syndrome. 9. has been advised to bring all of her medications to the hospital for further review. 10. Further suggestions will depend upon the results. 11. Neurological evaluation. PROGNOSIS: Guarded, critical. Thank you for your referral. DIDI SANCHEZ M.D. [id number]
[2018-12-02] MEDS ORDERED: LORazepam 2 MG/ML SDV VIAL IVPUSH ONE (11:50)
--- NOTE | 2018-12-02 12:26 | PN ---
Teaching Attending Note Name of Resident: González Fall ATTENDING PHYSICIAN STATEMENT I saw and evaluated the patient. I reviewed the resident's note and discussed the case with the resident. I agree with the resident's findings and plan as documented. SUBJECTIVE: Pt seen and examined in the ICU. Focal seizure activity seen during rounds with rhythmic eye and facial/neck movements but awake during this episode. Had some word finding difficulty prior to episode. OBJECTIVE: Vital Signs Period Temp Pulse Resp BP Sys/Hinojosa Pulse Ox Last 24 Hr 96.9 F-98.5 F 72-117 10-22 109-168/68-93 95-100 Intake & Output 11/29/18 11/30/18 12/01/18 12/02/18 23:59 23:59 23:59 23:59 Intake Total 509 Balance 509 Weight 108.862 kg 114.305 kg Gen: NAD at rest Heart: RRR Lung: decreased breath sounds at the bases Abd: soft, nontender Ext: no edema CBC, BMP 12/02/18 05:09 12/02/18 05:09 Active Medications Amlodipine Besylate (Norvasc -) 5 mg PO DAILY [facility] Last Admin: 12/02/18 10:31 Dose: 5 mg Aspirin (Asa -) 81 mg PO DAILY [facility] Last Admin: 12/02/18 10:30 Dose: 81 mg Atorvastatin Calcium (Lipitor -) 20 mg PO HS [facility] Chlorhexidine Gluconate (Hibiclens For Decolonization -) 1 applic TP HS [facility] Clonidine (Catapres -) 0.2 mg PO BID [facility] Last Admin: 12/02/18 10:30 Dose: 0.2 mg Gabapentin (Neurontin -) 300 mg PO BID PRN PRN Reason: PAIN LEVEL 1-5 Glipizide (Glucotrol Xl -) 10 mg PO DAILY@0700 [facility] Last Admin: 12/02/18 08:19 Dose: 10 mg Insulin Aspart (Novolog Vial Sliding Scale -) 1 vial SQ TIDAC [facility]; Protocol Last Admin: 12/02/18 11:55 Dose: 2 units Insulin Detemir (Levemir Vial) 20 units SQ BIDI [facility] Last Admin: 12/02/18 06:00 Dose: 20 units Levetiracetam (Keppra Injection -) 500 mg IVPB BID [facility] Losartan Potassium (Cozaar -) 50 mg PO DAILY [facility] Last Admin: 12/02/18 10:31 Dose: 50 mg Morphine Sulfate (Morphine Sulfate) 2 mg IVPUSH Q6H PRN PRN Reason: PAIN LEVEL 7 - 10 Mupirocin (Bactroban Ointment (For Decolonization) -) 1 applic NS BID [facility] Stop: 12/07/18 09:59 Last Admin: 12/02/18 10:32 Dose: 1 applic ASSESSMENT AND PLAN: Syncope r/o Seizures r/o Acute CVA r/o Benzo Withdrawal +Troponins likely Demand Ischemia s/p Fall HTN DM Hyperlipidemia Bipolar Disorder - antiepileptics - neuro eval - will likely need MRI brain - EEG - trend cardiac enzymes - echocardiogram - carotid dopplers - aspiration precautions - DVT prophylaxis - telemetry monitoring
--- NOTE | 2018-12-02 14:00 | ECHO ---
Name: JARETT ROSSI Exam:Adult Echocardiogram Study Date: 12/02/2018 08:21 AM Age: 57 yrs Reason For Study: Chest pain Height: 66 in Weight: 240 lb BSA: 2.2 m2 BP: 124/78 mmHg MMode/2D Measurements & Calculations IVSd: 1.1 cm Ao root diam: 3.1 cm LVIDd: 4.8 cm LA dimension: 3.5 cm LVIDs: 3.5 cm LVPWd: 0.86 cm EDV(Teich): 107.6 ml LVOT diam: 2.3 cm ESV(Teich): 51.5 ml Doppler Measurements & Calculations MV E max choco: 81.4 cm/sec Ao V2 max: 138.1 cm/sec MV A max choco: 107.6 cm/sec Ao max P.6 mmHg MV E/A: 0.76 MV dec time: 0.18 sec VENESSA(V,D): 2.9 cm2 LV V1 max P.6 mmHg TR max choco: 191.4 cm/sec LV V1 max: 94.4 cm/sec TR max P.7 mmHg Med Peak E' Choco: 4.4 cm/sec Med E/e': 18.6 Lat Peak E' Choco: 5.5 cm/sec Lat E/e': 14.8 Procedure A two-dimensional transthoracic echocardiogram with color flow and Doppler was performed. The study w as technically difficult with many images being suboptimal in quality. Left Ventricle The left ventricular size, thickness and function are normal. The left ventricle is not well visualiz ed. The left ventricular ejection fraction is normal. E/A reversal consistent with but not diagnostic of poor LV compliance. Regional wall motion abnormalities cannot be excluded due to limited visualization. Right Ventricle The right ventricle is not well visualized. Atria Normal left and right atrial size and function. Mitral Valve There is mild mitral valve thickening. There is no mitral valve stenosis. There is trace to mild mitr al regurgitation. Tricuspid Valve There is mild tricuspid valve thickening. There is no tricuspid stenosis. There is mild tricuspid regurgitation. Right ventricular systolic pressure is normal. Aortic Valve The aortic valve is not well visualized. No hemodynamically significant valvular aortic stenosis. No aortic regurgitation is present. Pulmonic Valve The pulmonic valve is not well visualized. Great Vessels The aortic root is normal size. Pericardium/Pleura There is no pericardial effusion. Interpretation Summary The left ventricular size, thickness and function are normal The left ventricular ejection fraction is normal. There is mild tricuspid regurgitation. Right ventricular systolic pressure is normal. E/A reversal consistent with but not diagnostic of poor LV compliance The study was technically difficult with many images being suboptimal in quality. The left ventricle is not well visualized. Regional wall motion abnormalities cannot be excluded due to limited visualization. There is trace to mild mitral regurgitation. MD Aren Chen 12/02/2018 02:00 PM
--- NOTE | 2018-12-02 15:55 | PN ---
Physical Exam: SUBJECTIVE: Patient seen and examined at bedside. Reports mild headache in the AM. During the morning, had what looks like a partial seizure with surrounding awareness. Given ativan. OBJECTIVE: Vital Signs Period Temp Pulse Resp BP Sys/Hinojosa Pulse Ox Last 24 Hr 96.9 F-98.6 F 72-117 10-22 109-168/68-93 95-100 GENERAL: A&Ox3, no acute distress, laceration noted on R side of forehead with surrounding swelling/erythema EYES: PERRLA, EOMI ENT: Moist mucus membranes NECK: No JVD LUNGS: CTA, no wheezes HEART: RRR, no murmurs ABDOMEN: Obese, Soft, nontender, BS present MUSCULOSKELETAL: No CVA Tenderness EXTREMITIES: 2+ pulses, no edema. NEUROLOGICAL: Cranial nerves II-XII intact. Laboratory Results - last 24 hr 12/01/18 12/01/18 12/01/18 16:09 20:00 23:26 WBC RBC Hgb Hct MCV MCH MCHC RDW Plt Count MPV Absolute Neuts (auto) Neutrophils % Lymphocytes % Monocytes % Eosinophils % Basophils % Nucleated RBC % PT with INR INR Sodium 143 Potassium 4.4 Chloride 105 Carbon Dioxide 26 Anion Gap 11 BUN 22.2 H Creatinine 1.4 H Est GFR (CKD-EPI)AfAm 48.90 Est GFR (CKD-EPI)NonAf 42.19 POC Glucometer Random Glucose 211 H Hemoglobin A1c % 8.5 H Calcium 8.7 Phosphorus Magnesium Total Bilirubin 0.4 AST 15 ALT 14 Alkaline Phosphatase 87 Creatine Kinase 251 H Creatine Kinase Index 3.8 CK-MB (CK-2) 9.7 H Troponin I 3.08 H* Total Protein 7.0 Albumin 3.1 L Urine Color Yellow Urine Appearance Cloudy Urine pH 5.5 Ur Specific [place] 1.015 Urine Protein 2+ H Urine Glucose (UA) Negative Urine Ketones Negative Urine Blood Negative Urine Nitrite Negative Urine Bilirubin Negative Urine Urobilinogen 1.0 Ur Leukocyte Esterase Negative Urine WBC (Auto) 7 Urine Casts (Auto) 3 U Epithel Cells (Auto) 11.3 Urine Bacteria (Auto) 361.3 12/02/18 12/02/18 12/02/18 01:30 05:09 05:09 WBC 10.9 H RBC 3.56 L Hgb 10.9 Hct 33.2 MCV 93.3 MCH 30.7 MCHC 32.9 RDW 15.8 H Plt Count 352 MPV 9.6 Absolute Neuts (auto) 6.4 Neutrophils % 58.5 Lymphocytes % 31.2 D Monocytes % 9.0 Eosinophils % 0.9 Basophils % 0.4 Nucleated RBC % 0 PT with INR 12.40 INR 1.05 Sodium Potassium Chloride Carbon Dioxide Anion Gap BUN Creatinine Est GFR (CKD-EPI)AfAm Est GFR (CKD-EPI)NonAf POC Glucometer Random Glucose Hemoglobin A1c % Calcium Phosphorus Magnesium Total Bilirubin AST ALT Alkaline Phosphatase Creatine Kinase 248 H Creatine Kinase Index 3.3 CK-MB (CK-2) 8.3 H Troponin I 2.13 H* Total Protein Albumin Urine Color Urine Appearance Urine pH Ur Specific [place] Urine Protein Urine Glucose (UA) Urine Ketones Urine Blood Urine Nitrite Urine Bilirubin Urine Urobilinogen Ur Leukocyte Esterase Urine WBC (Auto) Urine Casts (Auto) U Epithel Cells (Auto) Urine Bacteria (Auto) 12/02/18 12/02/18 12/02/18 05:09 05:26 11:24 WBC RBC Hgb Hct MCV MCH MCHC RDW Plt Count MPV Absolute Neuts (auto) Neutrophils % Lymphocytes % Monocytes % Eosinophils % Basophils % Nucleated RBC % PT with INR INR Sodium 139 Potassium 4.3 Chloride 106 Carbon Dioxide 26 Anion Gap 7 L BUN 23.4 H Creatinine 1.1 Est GFR (CKD-EPI)AfAm 65.45 Est GFR (CKD-EPI)NonAf 56.47 POC Glucometer 230 169 Random Glucose 207 H Hemoglobin A1c % Calcium 8.5 Phosphorus 3.6 Magnesium 2.0 Total Bilirubin AST ALT Alkaline Phosphatase Creatine Kinase Creatine Kinase Index CK-MB (CK-2) Troponin I Total Protein Albumin Urine Color Urine Appearance Urine pH Ur Specific [place] Urine Protein Urine Glucose (UA) Urine Ketones Urine Blood Urine Nitrite Urine Bilirubin Urine Urobilinogen Ur Leukocyte Esterase Urine WBC (Auto) Urine Casts (Auto) U Epithel Cells (Auto) Urine Bacteria (Auto) Active Medications Generic Name Dose Route Start Last Admin Trade Name Freq PRN Reason Stop Dose Admin Amlodipine Besylate 5 mg 12/02/18 10:00 12/02/18 10:31 Norvasc - PO 5 mg DAILY [facility] Administration Aspirin 81 mg 12/02/18 10:00 12/02/18 10:30 Asa - PO 81 mg DAILY [facility] Administration Atorvastatin Calcium 20 mg 12/02/18 22:00 Lipitor - PO HS [facility] Chlorhexidine Gluconate 1 applic 12/02/18 22:00 Hibiclens For Decolonization - TP HS [facility] Clonidine 0.2 mg 12/02/18 10:00 12/02/18 10:30 Catapres - PO 0.2 mg BID [facility] Administration Gabapentin 300 mg 12/02/18 02:17 Neurontin - PO BID PRN PAIN LEVEL 1-5 Glipizide 10 mg 12/02/18 07:00 12/02/18 08:19 Glucotrol Xl - PO 10 mg DAILY@0700 [facility] Administration Insulin Aspart 1 vial 12/02/18 07:00 12/02/18 11:55 Novolog Vial Sliding Scale - SQ 2 units TIDAC [facility] Administration Protocol Insulin Detemir 20 units 12/02/18 07:00 12/02/18 06:00 Levemir Vial SQ 20 units BIDI [facility] Administration Levetiracetam 500 mg 12/02/18 17:00 Keppra Injection - IVPB BID [facility] Losartan Potassium 50 mg 12/02/18 10:00 12/02/18 10:31 Cozaar - PO 50 mg DAILY [facility] Administration Morphine Sulfate 2 mg 12/01/18 23:23 Morphine Sulfate IVPUSH Q6H PRN PAIN LEVEL 7 - 10 Mupirocin 1 applic 12/02/18 10:00 12/02/18 10:32 Bactroban Ointment (For Decolonization) - NS 12/07/18 09:59 1 applic BID [facility] Administration ASSESSMENT/PLAN: 57 year old female with a past medical history asthma, bipolar disorder, HTN, DM , HLD presents s/p seizure-like episode and admitted for troponinemia/seizure NEUROLOGIC -repeat head CT negative -will need MRI -neurologic consult -neurochecks -continue keppra -continue gabapentin CARDIOLOGY -trops trended down -continue aspirin -continue statin -EKG showed some T wave flattening -echo -Dr. Hernández consulted -continue losartan/amlodipine/clonidine for BP RESPIRATORY -stable, no active issues RENAL -no active issues GASTROINTESTINAL -stable ENDOCRINE -BGM ACHS -ISS -Levemir 20mg bid -glipizide 10mg daily CODE -full code DISPO -can be downgraded to telemetry Visit type - Emergency Visit Emergency Visit: No - New Patient This patient is new to me today: Yes Date on this admission: 12/02/18 - Critical Care Critical Care patient: No Total Critical Care Time (in minutes): 35 Critical Care Statement: The care of this patient involved high complexity decision making to prevent further life threatening deterioration of the patient 's condition and/or to evaluate & treat vital organ system(s) failure or risk of failure.
[2018-12-02] MEDS ORDERED: levETIRAcetam 500 MG/5 ML INJECTION VIAL IVPB SCH (17:00)
[2018-12-02 17:45] LABS: COCAINE, UR NEGATIVE ng/ml (CUTOFF=300); METHADONE, UR NEGATIVE ng/ml (CUTOFF=300); OPIATES, URI NEGATIVE ng/ml (CUTOFF=300); PHENCYCLIDINE,URINE NEGATIVE ng/ml (CUTOFF=25); URINE AMPHETAMINES NEGATIVE ng/ml (CUTOFF=500); URINE BARBITURATES NEGATIVE ng/ml (CUTOFF=200); URINE BENZODIAZEPINES NEGATIVE ng/ml (CUTOFF=200)
--- NOTE | 2018-12-02 17:58 | CON.NEURO ---
Consult Consult Specialty:: Herlinda Referred by:: Reji Reason for Consultation:: Augustine - History of Present Illness History of Present Illness: 57 years old woman with pmh CAd OA Bipolar Disorder ?? sleep Apnea Asthma [place] presneted with one episode of fall in [place] kitchen was preparing food fell + LOC + shaking _ tongue biting Found by [place] family Brought in to [facility] psychiatrist was on Klonopin stopped it a month ago denies any flare up of her bipolar o family hx of seizure Hospital course In the hospital patient was evaluate dby cardiology for elevated tropnin No CP now Sitting comfortable In [place] ICU had another episode of ?? LOC with shaking Keppra started - History Source History Provided By: Patient, Medical Record Limitations to Obtaining History: No Limitations - Past Medical History Pulmonary: Yes: Asthma ...LMP: 11/06/15 Psych: Yes: Bipolar Endocrine: Yes: Diabetes Mellitus - Past Surgical History Past Surgical History: Yes: None - Alcohol/Substance Use Hx Alcohol Use: No - Smoking History Smoking history: Former smoker Have you smoked in the past 12 months: No Aproximately how many cigarettes per day: 0 If you are a former smoker, when did you quit?: 8 years ago - Social History Usual Living Arrangement: Alone Home Medications - Allergies Allergies/Adverse Reactions: Allergies Allergy/AdvReac Type Severity Reaction Status Date / Time No Known Allergies Allergy Verified 12/01/18 16:49 - Home Medications Home Medications: Ambulatory Orders Amlodipine Besylate 5 mg PO DAILY 01/25/18 Glipizide [Glipizide ER] 10 mg PO DAILY 01/25/18 Losartan Potassium 50 mg PO DAILY 06/10/18 Atorvastatin Calcium 20 mg PO HS 12/02/18 Clonazepam [Klonopin] 1 mg PO DAILY 12/02/18 Clonidine HCl 0.2 mg PO BID 12/02/18 Divalproex [Depakote -] 1,000 mg PO DAILY 12/02/18 Gabapentin 300 mg PO BID PRN 12/02/18 Insulin Detemir [Levemir Flextouch] 30 unit SQ BID 12/02/18 Insulin Lispro [Humalog] 100 unit SQ AC 12/02/18 Family Disease History - Family Disease History Family History: Denies (sz) Review of Systems - Review of Systems Constitutional: reports: No Symptoms Eyes: reports: No Symptoms Neurological: reports: No Symptoms Physical Exam-Neuro Vital Signs: Vital Signs Temperature 98.6 F 12/02/18 14:00 Pulse Rate 81 12/02/18 16:00 Respiratory Rate 17 12/02/18 16:00 Blood Pressure 120/67 12/02/18 16:00 O2 Sat by Pulse Oximetry (%) 99 12/02/18 09:00 Constitutional: Yes: Well Nourished Neck: Yes: WNL Labs: CBC, BMP 12/02/18 05:09 12/02/18 05:09 INR, PTT INR 1.05 (0.83-1.09) 12/02/18 05:09 - Neuro Exam Level Of Consciousness: Yes: Oriented to Person, Oriented to Place, Oriented to Time Eyes: Yes: PERRLA Speech: WNL Dominant Hand: Right Cranial Nerves II-XII Intact: Yes Gag: Present DTR's: 1+ Left Bicep, 1+ Right Bicep, 1+ Left Brachioradialis, 1+ Right Brachioradialis Response to light touch: Normal Response to pain prick: Normal Response to temperature: Normal Motor Strength: 3/5: Left Arm, Right Arm, Left Leg, Right Leg Gait: Deferred Imaging - Results Cat Scan: Image Reviewed Problem List - Problems (1) Syncope and collapse Assessment/Plan: ?? Benzo withdrawal seizure Postconcussion syndrome 1. Neuro check q1 2. Stop Keppra due to pysch behavioral changes 3. Depakote 750 mg po q12 4. Ativan prn 5. Resume Klonpin low dosage 6. EEG 7. MRI brain 8. Tylenol prn headache Thank you for the kind referral Myron Pate Code(s): R55 - SYNCOPE AND COLLAPSE
[2018-12-02] MEDS ORDERED: CHLORHEXIDINE GLUCONATE 4% CLEANSER FOR DECOLONIZATION TP SCH (22:00)
[2018-12-02] MEDS ORDERED: ATORVASTATIN CA 20 MG TABLET (FP) PO SCH (22:00)
[2018-12-02] MEDS: DIVALPROEX SODIUM 250 MG TABLET E.C. PO SCH (22:11)
[2018-12-03] MEDS: ACETAMINOPHEN 325 MG TABLET (FP) PO PRN ×2 (05:08→11:05)
[2018-12-03] MEDS ORDERED: INSULIN (NOVOLOG) ASPART 100 UNITS/ML 10ML VIAL ONE ×2 (06:04→12:50)
[2018-12-03] MEDS: INSULIN (LEVEMIR) 100 UNITS/ML UNITS SQ SCH ×2 (06:21→23:28)
[2018-12-03] MEDS: glipiZIDE-XL 10 MG TAB.ER.24 (FP) PO SCH (06:21)
[2018-12-03] MEDS: INSULIN SLIDING SCALE (NOVOLOG) 1 VIAL SQ SCH ×3 (06:21→16:56)
[2018-12-03] MEDS: ASPIRIN 81 MG CHEWABLE TABLETS PO SCH (11:05)
[2018-12-03] MEDS: LORazepam 1 MG TABLET PO SCH (11:05)
[2018-12-03] MEDS: LOSARTAN POTASSIUM 50 MG TABLET (FP) PO SCH (11:05)
[2018-12-03] MEDS: DIVALPROEX SODIUM 250 MG TABLET E.C. PO SCH ×2 (11:05→23:27)
[2018-12-03] MEDS: cloNIDine HCL 0.1 MG TABLET PO SCH ×2 (11:06→23:26)
[2018-12-03] MEDS: amLODIPine BESYLATE 5 MG TABLET (FP) PO SCH (11:06)
[2018-12-03] MEDS ORDERED: LORazepam 2 MG/ML SDV VIAL IVPUSH ONE (12:25)
--- NOTE | 2018-12-03 12:25 | PN ---
Progress Note, Physician History of Present Illness: events noted and chart reviewed. Patient was seen on the telemetry alert awake looks much better at breakfast report of any seizure-like activity patient claims that she had one episode of near seizure activity with no episode of altered sensorium shaking. Patient with no chest pain - Current Medication List Current Medications: Active Medications Acetaminophen (Tylenol -) 650 mg PO Q6H PRN PRN Reason: FEVER/PAIN LEVEL 1-3 Last Admin: 12/03/18 11:05 Dose: 650 mg Amlodipine Besylate (Norvasc -) 5 mg PO DAILY [facility] Last Admin: 12/03/18 11:06 Dose: 5 mg Aspirin (Asa -) 81 mg PO DAILY [facility] Last Admin: 12/03/18 11:05 Dose: 81 mg Atorvastatin Calcium (Lipitor -) 20 mg PO HS [facility] Clonazepam (Klonopin -) 0.5 mg PO BID PRN PRN Reason: ANXIETY Clonidine (Catapres -) 0.2 mg PO BID [facility] Last Admin: 12/03/18 11:06 Dose: 0.2 mg Divalproex Sodium (Depakote -) 750 mg PO BID [facility] Last Admin: 12/03/18 11:05 Dose: 750 mg Gabapentin (Neurontin -) 300 mg PO BID PRN PRN Reason: PAIN LEVEL 4-6 Glipizide (Glucotrol Xl -) 10 mg PO DAILY@0700 [facility] Insulin Aspart (Novolog Vial Sliding Scale -) 1 vial SQ TIDAC [facility]; Protocol Insulin Detemir (Levemir Vial) 20 units SQ 0700,2200 [facility] Lorazepam (Ativan -) 2 mg PO DAILY [facility] Last Admin: 12/03/18 11:05 Dose: 2 mg Losartan Potassium (Cozaar -) 50 mg PO DAILY [facility] Last Admin: 12/03/18 11:05 Dose: 50 mg Morphine Sulfate (Morphine Sulfate) 2 mg IVPUSH Q6H PRN PRN Reason: PAIN LEVEL 6- 10 - Objective Vital Signs: Vital Signs Temperature 97.6 F 12/03/18 07:00 Pulse Rate 65 12/03/18 11:00 Respiratory Rate 18 12/03/18 11:00 Blood Pressure 133/71 12/03/18 11:00 O2 Sat by Pulse Oximetry (%) 95 12/02/18 20:55 Constitutional: Yes: Well Nourished Eyes: Yes: WNL Neurological: Yes: Alert, Oriented, Babinski negative ...Motor Strength: WNL Labs: CBC, BMP 12/02/18 05:09 12/02/18 05:09 INR, PTT INR 1.05 (0.83-1.09) 12/02/18 05:09 Problem List - Problems (1) Syncope and collapse Assessment/Plan: questionable breakthrough seizure questionable acute coronary syndrome 1. Seizure precautions. 2. Await MRI. 3. Ativan when necessary. 4. Ativan on route to the MRI. Code(s): R55 - SYNCOPE AND COLLAPSE
--- NOTE | 2018-12-03 12:58 | PN ---
Progress Note, Physician History of Present Illness: Had some kind of seizure like activity last night At present she is in good spirits,no complaints - Current Medication List Current Medications: Active Medications Acetaminophen (Tylenol -) 650 mg PO Q6H PRN PRN Reason: FEVER/PAIN LEVEL 1-3 Last Admin: 12/03/18 11:05 Dose: 650 mg Amlodipine Besylate (Norvasc -) 5 mg PO DAILY [facility] Last Admin: 12/03/18 11:06 Dose: 5 mg Aspirin (Asa -) 81 mg PO DAILY [facility] Last Admin: 12/03/18 11:05 Dose: 81 mg Atorvastatin Calcium (Lipitor -) 20 mg PO HS [facility] Clonazepam (Klonopin -) 0.5 mg PO BID PRN PRN Reason: ANXIETY Clonidine (Catapres -) 0.2 mg PO BID [facility] Last Admin: 12/03/18 11:06 Dose: 0.2 mg Divalproex Sodium (Depakote -) 750 mg PO BID [facility] Last Admin: 12/03/18 11:05 Dose: 750 mg Gabapentin (Neurontin -) 300 mg PO BID PRN PRN Reason: PAIN LEVEL 4-6 Glipizide (Glucotrol Xl -) 10 mg PO DAILY@0700 [facility] Insulin Aspart (Novolog Vial Sliding Scale -) 1 vial SQ TIDAC [facility]; Protocol Insulin Detemir (Levemir Vial) 20 units SQ 0700,2200 [facility] Lorazepam (Ativan -) 2 mg PO DAILY [facility] Last Admin: 12/03/18 11:05 Dose: 2 mg Losartan Potassium (Cozaar -) 50 mg PO DAILY [facility] Last Admin: 12/03/18 11:05 Dose: 50 mg Morphine Sulfate (Morphine Sulfate) 2 mg IVPUSH Q6H PRN PRN Reason: PAIN LEVEL 6- 10 - Objective Vital Signs: Vital Signs Temperature 97.6 F 12/03/18 07:00 Pulse Rate 65 12/03/18 11:00 Respiratory Rate 18 12/03/18 11:00 Blood Pressure 133/71 12/03/18 11:00 O2 Sat by Pulse Oximetry (%) 95 12/02/18 20:55 Constitutional: Yes: No Distress Eyes: Yes: WNL HENT: Yes: WNL Neck: Yes: WNL Respiratory: Yes: WNL Gastrointestinal: Yes: Normal Bowel Sounds ...Rectal Exam: Yes: Deferred Genitourinary: Yes: WNL Breast(s): Yes: WNL Musculoskeletal: Yes: WNL Edema: No Neurological: Yes: Alert Labs: CBC, BMP 12/02/18 05:09 12/02/18 05:09 INR, PTT INR 1.05 (0.83-1.09) 12/02/18 05:09 Assessment/Plan HbA1c high 9.3
[2018-12-03] MEDS: glipiZIDE 5 MG TABLET (FP) PO SCH (16:43)
[2018-12-03] MEDS: MORPHINE SULFATE 2 MG/ML VIAL IVPUSH PRN (23:27)
[2018-12-03] MEDS: ATORVASTATIN CA 20 MG TABLET (FP) PO SCH (23:27)
[2018-12-04] MEDS: glipiZIDE 5 MG TABLET (FP) PO SCH ×2 (06:00→16:49)
[2018-12-04] MEDS: ACETAMINOPHEN 325 MG TABLET (FP) PO PRN (06:00)
[2018-12-04] MEDS: GABAPENTIN 300 MG CAPSULE (FP) PO PRN (06:06)
[2018-12-04] MEDS: INSULIN SLIDING SCALE (NOVOLOG) 1 VIAL SQ SCH ×3 (06:08→16:49)
[2018-12-04] MEDS: INSULIN (LEVEMIR) 100 UNITS/ML UNITS SQ SCH ×2 (06:14→21:52)
[2018-12-04] MEDS ORDERED: glipiZIDE-XL 10 MG TAB.ER.24 (FP) PO SCH (07:00)
[2018-12-04] MEDS: cloNIDine HCL 0.1 MG TABLET PO SCH ×2 (09:02→21:45)
[2018-12-04] MEDS: DIVALPROEX SODIUM 250 MG TABLET E.C. PO SCH ×2 (09:02→21:46)
[2018-12-04] MEDS: LOSARTAN POTASSIUM 50 MG TABLET (FP) PO SCH (09:03)
[2018-12-04] MEDS: LORazepam 1 MG TABLET PO SCH (09:03)
[2018-12-04] MEDS: clonazePAM 0.5 MG TABLET PO PRN ×2 (09:03→20:58)
[2018-12-04] MEDS: amLODIPine BESYLATE 5 MG TABLET (FP) PO SCH (09:03)
[2018-12-04] MEDS: ASPIRIN 81 MG CHEWABLE TABLETS PO SCH (09:03)
[2018-12-04] MEDS ORDERED: INSULIN (NOVOLOG) ASPART 100 UNITS/ML 10ML VIAL ONE ×2 (11:32→16:49)
[2018-12-04 19:46] VITALS: BMI 41.6
[2018-12-04] MEDS: ATORVASTATIN CA 20 MG TABLET (FP) PO SCH (21:46)
--- NOTE | 2018-12-04 22:02 | PN ---
Progress Note (short form) - Note Progress Note: 57 year old AA female admitted with h/o sudden LOC, and possible seizure activity, found her on the floor unresponsive and frothing at the mouth, she sustained injuries to the right side of the face. patient also has being experiecing recurring chest pains for over 1 year.(please refer to consult). No further seizures, no chest pain or discomfort, no SOB, No palpitations. Active Medications Acetaminophen (Tylenol -) 650 mg PO Q6H PRN PRN Reason: FEVER/PAIN LEVEL 1-3 Last Admin: 12/04/18 06:00 Dose: 650 mg Amlodipine Besylate (Norvasc -) 5 mg PO DAILY [facility] Last Admin: 12/04/18 09:03 Dose: 5 mg Aspirin (Asa -) 81 mg PO DAILY [facility] Last Admin: 12/04/18 09:03 Dose: 81 mg Atorvastatin Calcium (Lipitor -) 20 mg PO HS [facility] Last Admin: 12/04/18 21:46 Dose: 20 mg Clonazepam (Klonopin -) 0.5 mg PO BID PRN PRN Reason: ANXIETY Last Admin: 12/04/18 20:58 Dose: 0.5 mg Clonidine (Catapres -) 0.2 mg PO BID [facility] Last Admin: 12/04/18 21:45 Dose: 0.2 mg Divalproex Sodium (Depakote -) 750 mg PO BID [facility] Last Admin: 12/04/18 21:46 Dose: 750 mg Gabapentin (Neurontin -) 300 mg PO BID PRN PRN Reason: PAIN LEVEL 4-6 Last Admin: 12/04/18 06:06 Dose: 300 mg Glipizide (Glucotrol -) 5 mg PO BID@0700,1630 [facility] Last Admin: 12/04/18 16:49 Dose: 5 mg Insulin Aspart (Novolog Vial Sliding Scale -) 1 vial SQ TIDAC [facility]; Protocol Last Admin: 12/04/18 16:49 Dose: 2 units Insulin Detemir (Levemir Vial) 20 units SQ 0700,2200 [facility] Last Admin: 12/04/18 21:52 Dose: 20 units Lorazepam (Ativan -) 2 mg PO DAILY [facility] Last Admin: 12/04/18 09:03 Dose: 2 mg Losartan Potassium (Cozaar -) 50 mg PO DAILY [facility] Last Admin: 12/04/18 09:03 Dose: 50 mg Morphine Sulfate (Morphine Sulfate) 2 mg IVPUSH Q6H PRN PRN Reason: PAIN LEVEL 6- 10 Last Admin: 12/03/18 23:27 Dose: 2 mg Last Vital Signs Temp Pulse Resp BP Pulse Ox 98.5 F 86 17 122/89 99 12/02/18 06:00 12/02/18 12:00 12/02/18 12:00 12/02/18 12:00 12/02/18 09:00 NECK: Supple, no JVD, carotids 1+, no bruits heard. HEART: PMI not localised, distant heart sounds, no murmur or gallops heard. LUNGS: Clear. Abdomen: Soft,nontender,no organomegaly. EXTREMITIES: No calf tenderness or dependent edema. IMPRESSION: Last Vital Signs Temp Pulse Resp BP Pulse Ox 98.5 F 74 20 138/85 98 12/04/18 19:51 12/04/18 19:51 12/04/18 19:51 12/04/18 19:51 12/04/18 19:51 CBC, BMP 12/02/18 05:09 12/02/18 05:09 1. Seizure disorder, probably caused by sudden withdrawal of klonopin. 2. Celebrovasular event needs exclusion, ie CVA. 3. Elevated Trops, etiology: a). NSTEMI b). Seizure activity. 4. IDDM with mulitsystem involvement. 5. HCVD. 6. COPD. 7 Dyslipidemia. 8. Anemia, etiology needs to be determined. RECOMMENDATIONS: 1. Once stable, myocardial perfusion study with Lexiscan. 2. Evaluation of anemia. 3. F/u CBC and BMP. Prognosis: Critical.
[2018-12-05] MEDS: MORPHINE SULFATE 2 MG/ML VIAL IVPUSH PRN (04:46)
[2018-12-05] MEDS: glipiZIDE 5 MG TABLET (FP) PO SCH ×2 (06:38→16:36)
[2018-12-05] MEDS: INSULIN (LEVEMIR) 100 UNITS/ML UNITS SQ SCH ×2 (06:38→22:13)
[2018-12-05] MEDS: INSULIN SLIDING SCALE (NOVOLOG) 1 VIAL SQ SCH ×3 (06:39→16:41)
[2018-12-05] MEDS: clonazePAM 0.5 MG TABLET PO PRN ×2 (08:43→20:14)
[2018-12-05] MEDS: cloNIDine HCL 0.1 MG TABLET PO SCH ×2 (09:05→22:04)
[2018-12-05] MEDS: ASPIRIN 81 MG CHEWABLE TABLETS PO SCH (09:06)
[2018-12-05] MEDS: amLODIPine BESYLATE 5 MG TABLET (FP) PO SCH (09:06)
[2018-12-05] MEDS: DIVALPROEX SODIUM 250 MG TABLET E.C. PO SCH ×2 (09:06→22:04)
[2018-12-05] MEDS: LORazepam 1 MG TABLET PO SCH (09:06)
[2018-12-05] MEDS: LOSARTAN POTASSIUM 50 MG TABLET (FP) PO SCH (09:06)
--- NOTE | 2018-12-05 09:23 | PN ---
Progress Note, Physician History of Present Illness: events noted that chart reviewed Alert awake oriented Following's normal command No headache Questionable chest pain Follow-up with cardiology regarding possible transfer according to the patient - Current Medication List Current Medications: Active Medications Acetaminophen (Tylenol -) 650 mg PO Q6H PRN PRN Reason: FEVER/PAIN LEVEL 1-3 Last Admin: 12/04/18 06:00 Dose: 650 mg Amlodipine Besylate (Norvasc -) 5 mg PO DAILY [facility] Last Admin: 12/05/18 09:06 Dose: 5 mg Aspirin (Asa -) 81 mg PO DAILY [facility] Last Admin: 12/05/18 09:06 Dose: 81 mg Atorvastatin Calcium (Lipitor -) 20 mg PO HS [facility] Last Admin: 12/04/18 21:46 Dose: 20 mg Clonazepam (Klonopin -) 0.5 mg PO BID PRN PRN Reason: ANXIETY Last Admin: 12/05/18 08:43 Dose: 0.5 mg Clonidine (Catapres -) 0.2 mg PO BID [facility] Last Admin: 12/05/18 09:05 Dose: 0.2 mg Divalproex Sodium (Depakote -) 750 mg PO BID [facility] Last Admin: 12/05/18 09:06 Dose: 750 mg Gabapentin (Neurontin -) 300 mg PO BID PRN PRN Reason: PAIN LEVEL 4-6 Last Admin: 12/04/18 06:06 Dose: 300 mg Glipizide (Glucotrol -) 5 mg PO BID@0700,1630 [facility] Last Admin: 12/05/18 06:38 Dose: 5 mg Insulin Aspart (Novolog Vial Sliding Scale -) 1 vial SQ TIDAC [facility]; Protocol Last Admin: 12/05/18 06:39 Dose: 4 units Insulin Detemir (Levemir Vial) 20 units SQ 0700,2200 [facility] Last Admin: 12/05/18 06:38 Dose: 20 units Lorazepam (Ativan -) 2 mg PO DAILY [facility] Last Admin: 12/05/18 09:06 Dose: 2 mg Losartan Potassium (Cozaar -) 50 mg PO DAILY [facility] Last Admin: 12/05/18 09:06 Dose: 50 mg Morphine Sulfate (Morphine Sulfate) 2 mg IVPUSH Q6H PRN PRN Reason: PAIN LEVEL 6- 10 Last Admin: 12/05/18 04:46 Dose: 2 mg - Objective Vital Signs: Vital Signs Temperature 98.0 F 12/05/18 08:00 Pulse Rate 68 12/05/18 08:00 Respiratory Rate 18 12/05/18 08:11 Blood Pressure 145/77 12/05/18 08:00 O2 Sat by Pulse Oximetry (%) 98 12/05/18 08:11 Constitutional: Yes: Well Nourished Eyes: Yes: WNL Neurological: Yes: Alert, Oriented, Babinski negative ...Motor Strength: WNL Labs: CBC, BMP 12/02/18 05:09 12/02/18 05:09 INR, PTT INR 1.05 (0.83-1.09) 12/02/18 05:09 Problem List - Problems (1) Syncope and collapse Assessment/Plan: 1. Continue Depakote the same. 2. Continue clonazepam the same. 3. Follow-up with the results of the EEG. 4. MRI of the brain with no contrast Code(s): R55 - SYNCOPE AND COLLAPSE
--- NOTE | 2018-12-05 09:41 | PN ---
Progress Note, Physician Chief Complaint: Feels better,no chest pain or seizures History of Present Illness: Dr Amatos note read,advised to continue her depakot and xanax - Current Medication List Current Medications: Active Medications Acetaminophen (Tylenol -) 650 mg PO Q6H PRN PRN Reason: FEVER/PAIN LEVEL 1-3 Last Admin: 12/04/18 06:00 Dose: 650 mg Amlodipine Besylate (Norvasc -) 5 mg PO DAILY [facility] Last Admin: 12/05/18 09:06 Dose: 5 mg Aspirin (Asa -) 81 mg PO DAILY [facility] Last Admin: 12/05/18 09:06 Dose: 81 mg Atorvastatin Calcium (Lipitor -) 20 mg PO HS [facility] Last Admin: 12/04/18 21:46 Dose: 20 mg Clonazepam (Klonopin -) 0.5 mg PO BID PRN PRN Reason: ANXIETY Last Admin: 12/05/18 08:43 Dose: 0.5 mg Clonidine (Catapres -) 0.2 mg PO BID [facility] Last Admin: 12/05/18 09:05 Dose: 0.2 mg Divalproex Sodium (Depakote -) 750 mg PO BID [facility] Last Admin: 12/05/18 09:06 Dose: 750 mg Gabapentin (Neurontin -) 300 mg PO BID PRN PRN Reason: PAIN LEVEL 4-6 Last Admin: 12/04/18 06:06 Dose: 300 mg Glipizide (Glucotrol -) 5 mg PO BID@0700,1630 [facility] Last Admin: 12/05/18 06:38 Dose: 5 mg Insulin Aspart (Novolog Vial Sliding Scale -) 1 vial SQ TIDAC [facility]; Protocol Last Admin: 12/05/18 06:39 Dose: 4 units Insulin Detemir (Levemir Vial) 20 units SQ 0700,2200 [facility] Last Admin: 12/05/18 06:38 Dose: 20 units Lorazepam (Ativan -) 2 mg PO DAILY [facility] Last Admin: 12/05/18 09:06 Dose: 2 mg Losartan Potassium (Cozaar -) 50 mg PO DAILY [facility] Last Admin: 12/05/18 09:06 Dose: 50 mg Morphine Sulfate (Morphine Sulfate) 2 mg IVPUSH Q6H PRN PRN Reason: PAIN LEVEL 6- 10 Last Admin: 12/05/18 04:46 Dose: 2 mg - Objective Vital Signs: Vital Signs Temperature 98.0 F 12/05/18 08:00 Pulse Rate 68 12/05/18 08:00 Respiratory Rate 18 12/05/18 08:11 Blood Pressure 145/77 12/05/18 08:00 O2 Sat by Pulse Oximetry (%) 98 12/05/18 08:11 Constitutional: Yes: No Distress Eyes: Yes: WNL HENT: Yes: WNL Neck: Yes: WNL Cardiovascular: Yes: WNL Respiratory: Yes: WNL ...Rectal Exam: Yes: Deferred Genitourinary: Yes: WNL Musculoskeletal: Yes: WNL Wound/Incision: Yes: Clean/Dry Neurological: Yes: Alert Psychiatric: Yes: Alert Labs: CBC, BMP 12/02/18 05:09 12/02/18 05:09 INR, PTT INR 1.05 (0.83-1.09) 12/02/18 05:09 Assessment/Plan Rpt labs in am
[2018-12-05] MEDS ORDERED: INSULIN (NOVOLOG) ASPART 100 UNITS/ML 10ML VIAL ONE (11:38)
[2018-12-05] MEDS: ATORVASTATIN CA 20 MG TABLET (FP) PO SCH (22:05)
[2018-12-05] MEDS: GABAPENTIN 300 MG CAPSULE (FP) PO PRN (22:05)
[2018-12-05] MEDS: ACETAMINOPHEN 325 MG TABLET (FP) PO PRN (22:09)
[2018-12-06] MEDS: INSULIN (LEVEMIR) 100 UNITS/ML UNITS SQ SCH ×2 (06:47→22:18)
[2018-12-06] MEDS: glipiZIDE 5 MG TABLET (FP) PO SCH ×2 (06:47→17:02)
[2018-12-06] MEDS: INSULIN SLIDING SCALE (NOVOLOG) 1 VIAL SQ SCH ×3 (06:47→17:02)
[2018-12-06 07:38] LABS: HEMATOCRIT 35.4 % (32.4-45.2); HEMOGLOBIN 11.6 GM/dL (10.7-15.3); MCH 30.9 pg (25.7-33.7); MCHC 32.9 g/dl (32.0-36.0); MEAN CELL VOLUME 94.1 fl (80-96); MEAN PLT VOLUME 9.7 fl (7.5-11.1); PLATELET COUNT 344 K/MM3 (134-434); RBC 3.76 M/mm3 (3.60-5.2); RDW 15.8 % (11.6-15.6); WHITE BLOOD COUNT 9.6 K/mm3 (4.0-10.0)
[2018-12-06 07:51] LABS: BILIRUBIN,TOTAL 0.2 mg/dL (0.2-1); BLOOD UREA NITROGEN 17.1 mg/dL (7-18); CALCIUM 8.4 mg/dL (8.5-10.1); CREATININE 0.8 mg/dL (0.55-1.3); POTASSIUM 4.7 mmol/L (3.5-5.1); TOT PROT 6.6 g/dl (6.4-8.2)
[2018-12-06] MEDS: DIVALPROEX SODIUM 250 MG TABLET E.C. PO SCH ×2 (09:25→22:19)
[2018-12-06] MEDS: ASPIRIN 81 MG CHEWABLE TABLETS PO SCH (09:25)
[2018-12-06] MEDS: LOSARTAN POTASSIUM 50 MG TABLET (FP) PO SCH (09:25)
[2018-12-06] MEDS: clonazePAM 0.5 MG TABLET PO PRN ×2 (09:25→22:20)
[2018-12-06] MEDS: LORazepam 1 MG TABLET PO SCH (09:25)
[2018-12-06] MEDS: cloNIDine HCL 0.1 MG TABLET PO SCH ×2 (09:25→22:20)
[2018-12-06] MEDS: amLODIPine BESYLATE 5 MG TABLET (FP) PO SCH (09:26)
--- NOTE | 2018-12-06 12:08 | PN ---
Progress Note (short form) - Note Progress Note: 57 year old AA female admitted with h/o sudden LOC, and possible seizure activity, found her on the floor unresponsive and frothing at the mouth, she sustained injuries to the right side of the face. patient also has being experiecing recurring chest pains for over 1 year.(please refer to consult). Vague intermittent localised chest discomfort, no further seizures, no SOB. Active Medications Generic Name Dose Route Start Last Admin Trade Name Freq PRN Reason Stop Dose Admin Acetaminophen 650 mg 12/03/18 05:03 12/05/18 22:09 Tylenol - PO 650 mg Q6H PRN Administration FEVER/PAIN LEVEL 1-3 Amlodipine Besylate 5 mg 12/03/18 10:00 12/06/18 09:26 Norvasc - PO 5 mg DAILY [facility] Administration Aspirin 81 mg 12/03/18 10:00 12/06/18 09:25 Asa - PO 81 mg DAILY [facility] Administration Atorvastatin Calcium 20 mg 12/03/18 22:00 12/05/18 22:05 Lipitor - PO 20 mg HS [facility] Administration Clonazepam 0.5 mg 12/05/18 20:05 12/06/18 09:25 Klonopin - PO 0.5 mg BID PRN Administration ANXIETY Clonidine 0.2 mg 12/03/18 10:00 12/06/18 09:25 Catapres - PO 0.2 mg BID [facility] Administration Divalproex Sodium 750 mg 12/02/18 22:00 12/06/18 09:25 Depakote - PO 750 mg BID [facility] Administration Gabapentin 300 mg 12/03/18 09:21 12/05/18 22:05 Neurontin - PO 300 mg BID PRN Administration PAIN LEVEL 4-6 Glipizide 5 mg 12/03/18 16:30 12/06/18 06:47 Glucotrol - PO 5 mg BID@0700,1630 [facility] Administration Insulin Aspart 1 vial 12/03/18 11:00 12/06/18 11:31 Novolog Vial Sliding Scale - SQ 6 units TIDAC [facility] Administration Protocol Insulin Detemir 20 units 12/03/18 22:00 12/06/18 06:47 Levemir Vial SQ 20 units 0700,2200 [facility] Administration Lorazepam 2 mg 12/03/18 10:00 12/06/18 09:25 Ativan - PO 2 mg DAILY [facility] Administration Losartan Potassium 50 mg 12/03/18 10:00 12/06/18 09:25 Cozaar - PO 50 mg DAILY [facility] Administration Last Vital Signs Temp Pulse Resp BP Pulse Ox 98.5 F 86 17 122/89 99 12/02/18 06:00 12/02/18 12:00 12/02/18 12:00 12/02/18 12:00 12/02/18 09:00 NECK: Supple, no JVD, carotids 1+, no bruits heard. HEART: PMI not localised, distant heart sounds, no murmur or gallops heard. LUNGS: Clear. Abdomen: Soft, nontender, no organomegaly. EXTREMITIES: No calf tenderness or dependent edema. CBC, BMP 12/06/18 05:28 12/06/18 05:28 IMPRESSION: 1. Seizure disorder, probably caused by sudden withdrawal of klonopin. 2. Chest pain syndrome, CAD needs exclusion. 3. Elevated Trops, etiology: a). NSTEMI b). Seizure activity. 4. IDDM with mulitsystem involvement. 5. HCVD. 6. COPD. 7 Dyslipidemia. 8. Anemia, etiology needs to be determined. RECOMMENDATIONS: 1. Myocardial perfusion study with Lexiscan. 2. Increase ambulation. Prognosis: Critical.
--- NOTE | 2018-12-06 20:31 | PN ---
Progress Note, Physician Chief Complaint: No more seizures hemodynamica;lly stable History of Present Illness: 57 year old female with a PMHx of DM, HTN, bipolar disorder, HLD, depression, anxiety, COPD, neuropathy, osteoarthritis, necrosis of the leg secondary to cellulitis, sleep apnea (not on CPAP), who presented today after sustaining an unwitnessed fall in her home. - Current Medication List Current Medications: Active Medications Acetaminophen (Tylenol -) 650 mg PO Q6H PRN PRN Reason: FEVER/PAIN LEVEL 1-3 Last Admin: 12/05/18 22:09 Dose: 650 mg Amlodipine Besylate (Norvasc -) 5 mg PO DAILY [facility] Last Admin: 12/06/18 09:26 Dose: 5 mg Aspirin (Asa -) 81 mg PO DAILY [facility] Last Admin: 12/06/18 09:25 Dose: 81 mg Atorvastatin Calcium (Lipitor -) 20 mg PO HS [facility] Last Admin: 12/05/18 22:05 Dose: 20 mg Clonazepam (Klonopin -) 0.5 mg PO BID PRN PRN Reason: ANXIETY Last Admin: 12/06/18 09:25 Dose: 0.5 mg Clonidine (Catapres -) 0.2 mg PO BID [facility] Last Admin: 12/06/18 09:25 Dose: 0.2 mg Divalproex Sodium (Depakote -) 750 mg PO BID [facility] Last Admin: 12/06/18 09:25 Dose: 750 mg Gabapentin (Neurontin -) 300 mg PO BID PRN PRN Reason: PAIN LEVEL 4-6 Last Admin: 12/05/18 22:05 Dose: 300 mg Glipizide (Glucotrol -) 5 mg PO BID@0700,1630 [facility] Last Admin: 12/06/18 17:02 Dose: 5 mg Insulin Aspart (Novolog Vial Sliding Scale -) 1 vial SQ TIDAC [facility]; Protocol Last Admin: 12/06/18 17:02 Dose: 2 units Insulin Detemir (Levemir Vial) 20 units SQ 0700,2200 [facility] Last Admin: 12/06/18 06:47 Dose: 20 units Lorazepam (Ativan -) 2 mg PO DAILY [facility] Last Admin: 12/06/18 09:25 Dose: 2 mg Losartan Potassium (Cozaar -) 50 mg PO DAILY [facility] Last Admin: 12/06/18 09:25 Dose: 50 mg - Objective Vital Signs: Vital Signs Temperature 98 F 12/06/18 17:03 Pulse Rate 68 12/06/18 17:03 Respiratory Rate 18 12/06/18 17:03 Blood Pressure 104/55 L 12/06/18 17:03 O2 Sat by Pulse Oximetry (%) 94 L 12/06/18 08:34 Constitutional: Yes: Well Nourished, No Distress, Calm Eyes: Yes: Conjunctiva Clear, EOM Intact. No: Diplopia, Sclera Icterus HENT: Yes: Atraumatic, Normocephalic, Other (Rt eye periorbital echymoses). No : Hoarseness Neck: Yes: Supple, Trachea Midline Respiratory: Yes: Regular, CTA Bilaterally Gastrointestinal: Yes: Normal Bowel Sounds, Soft Extremities: Yes: Other (Rt landin healing ukcer). No: Amputation, Calf Tenderness Edema: No Peripheral Pulses: Left Doralis Pedis: 1+, Right Dorsalis Pedis: 1+ Neurological: Yes: Alert, Oriented Labs: CBC, BMP 12/06/18 05:28 12/06/18 05:28 INR, PTT INR 1.05 (0.83-1.09) 12/02/18 05:09 Problem List - Problems (1) NSTEMI (non-ST elevated myocardial infarction) Assessment/Plan: on B Blockers statin and ASA, schedule for NST in am NPO after muid night Code(s): I21.4 - NON-ST ELEVATION (NSTEMI) MYOCARDIAL INFARCTION (2) Asthmatic bronchitis Assessment/Plan: Stable cont home meds Code(s): J45.909 - UNSPECIFIED ASTHMA, UNCOMPLICATED (3) HTN (hypertension) Assessment/Plan: Well controlled Code(s): I10 - ESSENTIAL (PRIMARY) HYPERTENSION Qualifiers: Hypertension type: unspecified Qualified Code(s): I10 - Essential (primary ) hypertension (4) Morbid obesity Assessment/Plan: nutrition consult as out patient Code(s): E66.01 - MORBID (SEVERE) OBESITY DUE TO EXCESS CALORIES (5) HLD (hyperlipidemia) Assessment/Plan: On statin Code(s): E78.5 - HYPERLIPIDEMIA, UNSPECIFIED (6) T2DM (type 2 diabetes mellitus) Assessment/Plan: cont home meds optimize Glycemic control Code(s): E11.9 - TYPE 2 DIABETES MELLITUS WITHOUT COMPLICATIONS (7) Seizures Assessment/Plan: due to non compliance with Depakote Code(s): R56.9 - UNSPECIFIED CONVULSIONS
[2018-12-06] MEDS: ATORVASTATIN CA 20 MG TABLET (FP) PO SCH (22:19)
[2018-12-06] MEDS: ACETAMINOPHEN 325 MG TABLET (FP) PO PRN (22:24)
[2018-12-06] MEDS: GABAPENTIN 300 MG CAPSULE (FP) PO PRN (22:24)
[2018-12-07] MEDS: glipiZIDE 5 MG TABLET (FP) PO SCH ×2 (06:07→17:19)
[2018-12-07] MEDS: INSULIN (LEVEMIR) 100 UNITS/ML UNITS SQ SCH ×2 (06:07→21:25)
[2018-12-07] MEDS: INSULIN SLIDING SCALE (NOVOLOG) 1 VIAL SQ SCH ×3 (06:07→17:19)
[2018-12-07] MEDS ORDERED: REGADENOSON 0.4 MG/5 ML PRE-FILLED SYRINGE IVPUSH ONE (08:30)
[2018-12-07] MEDS: ASPIRIN 81 MG CHEWABLE TABLETS PO SCH (09:24)
[2018-12-07] MEDS: DIVALPROEX SODIUM 250 MG TABLET E.C. PO SCH ×2 (09:24→21:16)
[2018-12-07] MEDS: LORazepam 1 MG TABLET PO SCH (09:24)
[2018-12-07] MEDS: LOSARTAN POTASSIUM 50 MG TABLET (FP) PO SCH (09:25)
[2018-12-07] MEDS: clonazePAM 0.5 MG TABLET PO PRN ×2 (09:25→21:21)
[2018-12-07] MEDS: amLODIPine BESYLATE 5 MG TABLET (FP) PO SCH (09:25)
[2018-12-07] MEDS: cloNIDine HCL 0.1 MG TABLET PO SCH ×2 (09:25→21:16)
--- NOTE | 2018-12-07 10:02 | PN ---
Progress Note, Physician History of Present Illness: events noted Chart review Seen on telemetry No cardiac event overnight Still awaiting the stress test from this morning Still awaiting the MRI of the brain with no contrast EEG results are pending - Current Medication List Current Medications: Active Medications Acetaminophen (Tylenol -) 650 mg PO Q6H PRN PRN Reason: FEVER/PAIN LEVEL 1-3 Last Admin: 12/06/18 22:24 Dose: 650 mg Amlodipine Besylate (Norvasc -) 5 mg PO DAILY [facility] Last Admin: 12/07/18 09:25 Dose: 5 mg Aspirin (Asa -) 81 mg PO DAILY [facility] Last Admin: 12/07/18 09:24 Dose: 81 mg Atorvastatin Calcium (Lipitor -) 20 mg PO HS [facility] Last Admin: 12/06/18 22:19 Dose: 20 mg Clonazepam (Klonopin -) 0.5 mg PO BID PRN PRN Reason: ANXIETY Last Admin: 12/07/18 09:25 Dose: 0.5 mg Clonidine (Catapres -) 0.2 mg PO BID [facility] Last Admin: 12/07/18 09:25 Dose: 0.2 mg Divalproex Sodium (Depakote -) 750 mg PO BID [facility] Last Admin: 12/07/18 09:24 Dose: 750 mg Gabapentin (Neurontin -) 300 mg PO BID PRN PRN Reason: PAIN LEVEL 4-6 Last Admin: 12/06/18 22:24 Dose: 300 mg Glipizide (Glucotrol -) 5 mg PO BID@0700,1630 [facility] Last Admin: 12/07/18 06:07 Dose: Not Given Insulin Aspart (Novolog Vial Sliding Scale -) 1 vial SQ TIDAC [facility]; Protocol Last Admin: 12/07/18 06:07 Dose: Not Given Insulin Detemir (Levemir Vial) 20 units SQ 0700,2200 [facility] Last Admin: 12/07/18 06:07 Dose: Not Given Lorazepam (Ativan -) 2 mg PO DAILY [facility] Last Admin: 12/07/18 09:24 Dose: 2 mg Losartan Potassium (Cozaar -) 50 mg PO DAILY [facility] Last Admin: 12/07/18 09:25 Dose: 50 mg - Objective Vital Signs: Vital Signs Temperature 97.8 F 12/07/18 08:34 Pulse Rate 69 12/07/18 08:34 Respiratory Rate 18 12/07/18 08:37 Blood Pressure 118/59 L 12/07/18 08:34 O2 Sat by Pulse Oximetry (%) 97 12/07/18 08:37 Constitutional: Yes: Well Nourished Eyes: Yes: WNL Neurological: Yes: Alert, Oriented, Babinski negative ...Motor Strength: WNL Labs: CBC, BMP 12/06/18 05:28 12/06/18 05:28 INR, PTT INR 1.05 (0.83-1.09) 12/02/18 05:09 Problem List - Problems (1) Syncope and collapse Assessment/Plan: 1. Continue Depakote the same. 2. Continue clonazepam the same. 3. Follow-up with cardiology regarding possible transfer to [facility] 4. DVT prophylaxis. 5. Out of bed to chair Code(s): R55 - SYNCOPE AND COLLAPSE
[2018-12-07] MEDS ORDERED: INSULIN (NOVOLOG) ASPART 100 UNITS/ML 10ML VIAL ONE (17:05)
--- NOTE | 2018-12-07 18:04 | PN ---
Progress Note, Physician Chief Complaint: I WITNESSED THE PATIENT IN NEAR SEIZURE EPISODE,BUT THE PATIENT WAS NOT POST ICTAL. History of Present Illness: no chest pain. - Current Medication List Current Medications: Active Medications Acetaminophen (Tylenol -) 650 mg PO Q6H PRN PRN Reason: FEVER/PAIN LEVEL 1-3 Last Admin: 12/06/18 22:24 Dose: 650 mg Amlodipine Besylate (Norvasc -) 5 mg PO DAILY [facility] Last Admin: 12/07/18 09:25 Dose: 5 mg Aspirin (Asa -) 81 mg PO DAILY [facility] Last Admin: 12/07/18 09:24 Dose: 81 mg Atorvastatin Calcium (Lipitor -) 20 mg PO HS [facility] Last Admin: 12/06/18 22:19 Dose: 20 mg Clonazepam (Klonopin -) 0.5 mg PO BID PRN PRN Reason: ANXIETY Last Admin: 12/07/18 09:25 Dose: 0.5 mg Clonidine (Catapres -) 0.2 mg PO BID [facility] Last Admin: 12/07/18 09:25 Dose: 0.2 mg Divalproex Sodium (Depakote -) 750 mg PO BID [facility] Last Admin: 12/07/18 09:24 Dose: 750 mg Gabapentin (Neurontin -) 300 mg PO BID PRN PRN Reason: PAIN LEVEL 4-6 Last Admin: 12/06/18 22:24 Dose: 300 mg Glipizide (Glucotrol -) 5 mg PO BID@0700,1630 [facility] Last Admin: 12/07/18 17:19 Dose: 5 mg Insulin Aspart (Novolog Vial Sliding Scale -) 1 vial SQ TIDAC [facility]; Protocol Last Admin: 12/07/18 17:19 Dose: 2 units Insulin Detemir (Levemir Vial) 20 units SQ 0700,2200 [facility] Last Admin: 12/07/18 06:07 Dose: Not Given Lorazepam (Ativan -) 2 mg PO DAILY [facility] Last Admin: 12/07/18 09:24 Dose: 2 mg Losartan Potassium (Cozaar -) 50 mg PO DAILY [facility] Last Admin: 12/07/18 09:25 Dose: 50 mg - Objective Vital Signs: Vital Signs Temperature 98.0 F 12/07/18 14:00 Pulse Rate 66 12/07/18 14:00 Respiratory Rate 18 12/07/18 14:00 Blood Pressure 107/68 12/07/18 14:00 O2 Sat by Pulse Oximetry (%) 97 12/07/18 08:37 Constitutional: Yes: Anxious Eyes: Yes: WNL HENT: Yes: WNL Neck: Yes: WNL Cardiovascular: Yes: Regular Rate and Rhythm Respiratory: Yes: Regular Gastrointestinal: Yes: WNL ...Rectal Exam: Yes: Deferred Genitourinary: Yes: WNL Extremities: Yes: WNL Edema: No Peripheral Pulses WNL: Yes Neurological: Yes: Alert ...Motor Strength: WNL Labs: CBC, BMP 12/06/18 05:28 12/06/18 05:28 INR, PTT INR 1.05 (0.83-1.09) 12/02/18 05:09 Assessment/Plan will discuss with neurology and cardiology may need tranfer to cath
--- NOTE | 2018-12-07 18:42 | PN ---
Progress Note (short form) - Note Progress Note: 57 year old AA female admitted with h/o sudden LOC, and possible seizure activity, found her on the floor unresponsive and frothing at the mouth, she sustained injuries to the right side of the face. patient also has being experiecing recurring chest pains for over 1 year.(please refer to consult). Vague intermittent localised chest discomfort, no further seizures, no SOB. Had panic attack and stress test was cancelled. Active Medications Acetaminophen (Tylenol -) 650 mg PO Q6H PRN PRN Reason: FEVER/PAIN LEVEL 1-3 Last Admin: 12/06/18 22:24 Dose: 650 mg Amlodipine Besylate (Norvasc -) 5 mg PO DAILY [facility] Last Admin: 12/07/18 09:25 Dose: 5 mg Aspirin (Asa -) 81 mg PO DAILY [facility] Last Admin: 12/07/18 09:24 Dose: 81 mg Atorvastatin Calcium (Lipitor -) 20 mg PO HS [facility] Last Admin: 12/06/18 22:19 Dose: 20 mg Clonazepam (Klonopin -) 0.5 mg PO BID PRN PRN Reason: ANXIETY Last Admin: 12/07/18 09:25 Dose: 0.5 mg Clonidine (Catapres -) 0.2 mg PO BID [facility] Last Admin: 12/07/18 09:25 Dose: 0.2 mg Divalproex Sodium (Depakote -) 750 mg PO BID [facility] Last Admin: 12/07/18 09:24 Dose: 750 mg Gabapentin (Neurontin -) 300 mg PO BID PRN PRN Reason: PAIN LEVEL 4-6 Last Admin: 12/06/18 22:24 Dose: 300 mg Glipizide (Glucotrol -) 5 mg PO BID@0700,1630 [facility] Last Admin: 12/07/18 17:19 Dose: 5 mg Insulin Aspart (Novolog Vial Sliding Scale -) 1 vial SQ TIDAC [facility]; Protocol Last Admin: 12/07/18 17:19 Dose: 2 units Insulin Detemir (Levemir Vial) 20 units SQ 0700,2200 [facility] Last Admin: 12/07/18 06:07 Dose: Not Given Lorazepam (Ativan -) 2 mg PO DAILY [facility] Last Admin: 12/07/18 09:24 Dose: 2 mg Losartan Potassium (Cozaar -) 50 mg PO DAILY [facility] Last Admin: 12/07/18 09:25 Dose: 50 mg Last Vital Signs Temp Pulse Resp BP Pulse Ox 98.0 F 66 18 107/68 97 12/07/18 14:00 12/07/18 14:00 12/07/18 14:00 12/07/18 14:00 12/07/18 08:37 NECK: Supple, no JVD, carotids 1+, no bruits heard. HEART: PMI not localised, distant heart sounds, no murmur or gallops heard. LUNGS: Clear. Abdomen: Soft, nontender, no organomegaly. EXTREMITIES: No calf tenderness or dependent edema. CBC, BMP 12/06/18 05:28 12/06/18 05:28 IMPRESSION: 1. Chest pain syndrome, CAD needs exclusion. 3. Elevated Trops, etiology: a). NSTEMI b). Seizure activity. 4. IDDM with mulitsystem involvement. 5. HCVD. 6. COPD. 7 Dyslipidemia. 8. Anemia, etiology needs to be determined. RECOMMENDATIONS: 1. Myocardial perfusion study with Lexiscan reschuled for 12/08/18 2. Increase ambulation. 3. evaluation by dietitian. Prognosis: Critical.
[2018-12-07] MEDS: ATORVASTATIN CA 20 MG TABLET (FP) PO SCH (21:16)
[2018-12-07] MEDS: ACETAMINOPHEN 325 MG TABLET (FP) PO PRN (21:20)
[2018-12-07] MEDS: GABAPENTIN 300 MG CAPSULE (FP) PO PRN (21:20)
[2018-12-08 04:08] LABS: CK-MM 100 % (97-100)
[2018-12-08] MEDS: glipiZIDE 5 MG TABLET (FP) PO SCH ×2 (06:19→17:57)
[2018-12-08] MEDS: INSULIN (LEVEMIR) 100 UNITS/ML UNITS SQ SCH ×2 (06:19→22:16)
[2018-12-08] MEDS: INSULIN SLIDING SCALE (NOVOLOG) 1 VIAL SQ SCH ×3 (06:20→17:57)
[2018-12-08] MEDS: LOSARTAN POTASSIUM 50 MG TABLET (FP) PO SCH (09:00)
[2018-12-08] MEDS: LORazepam 1 MG TABLET PO SCH (09:00)
[2018-12-08] MEDS: amLODIPine BESYLATE 5 MG TABLET (FP) PO SCH (09:00)
[2018-12-08] MEDS: cloNIDine HCL 0.1 MG TABLET PO SCH ×2 (09:00→22:15)
[2018-12-08] MEDS: ASPIRIN 81 MG CHEWABLE TABLETS PO SCH (09:00)
[2018-12-08] MEDS: DIVALPROEX SODIUM 250 MG TABLET E.C. PO SCH ×2 (09:00→22:13)
--- NOTE | 2018-12-08 09:47 | PN ---
Progress Note, Physician Chief Complaint: Feels better History of Present Illness: Admitted after a fall Troponin +ve .nuclear stress test in progress - Current Medication List Current Medications: Active Medications Acetaminophen (Tylenol -) 650 mg PO Q6H PRN PRN Reason: FEVER/PAIN LEVEL 1-3 Last Admin: 12/07/18 21:20 Dose: 650 mg Amlodipine Besylate (Norvasc -) 5 mg PO DAILY [facility] Last Admin: 12/08/18 09:00 Dose: 5 mg Aspirin (Asa -) 81 mg PO DAILY [facility] Last Admin: 12/08/18 09:00 Dose: 81 mg Atorvastatin Calcium (Lipitor -) 20 mg PO HS [facility] Last Admin: 12/07/18 21:16 Dose: 20 mg Clonazepam (Klonopin -) 0.5 mg PO BID PRN PRN Reason: ANXIETY Last Admin: 12/07/18 21:21 Dose: 0.5 mg Clonidine (Catapres -) 0.2 mg PO BID [facility] Last Admin: 12/08/18 09:00 Dose: 0.2 mg Divalproex Sodium (Depakote -) 750 mg PO BID [facility] Last Admin: 12/08/18 09:00 Dose: 750 mg Gabapentin (Neurontin -) 300 mg PO BID PRN PRN Reason: PAIN LEVEL 4-6 Last Admin: 12/07/18 21:20 Dose: 300 mg Glipizide (Glucotrol -) 5 mg PO BID@0700,1630 [facility] Last Admin: 12/08/18 06:19 Dose: Not Given Insulin Aspart (Novolog Vial Sliding Scale -) 1 vial SQ TIDAC [facility]; Protocol Last Admin: 12/08/18 06:20 Dose: Not Given Insulin Detemir (Levemir Vial) 20 units SQ 0700,2200 [facility] Last Admin: 12/08/18 06:19 Dose: Not Given Lorazepam (Ativan -) 2 mg PO DAILY [facility] Last Admin: 12/08/18 09:00 Dose: 2 mg Losartan Potassium (Cozaar -) 50 mg PO DAILY [facility] Last Admin: 12/08/18 09:00 Dose: 50 mg - Objective Vital Signs: Vital Signs Temperature 97.4 F L 12/08/18 05:48 Pulse Rate 61 12/08/18 05:48 Respiratory Rate 18 12/08/18 05:48 Blood Pressure 137/74 12/08/18 05:48 O2 Sat by Pulse Oximetry (%) 96 12/07/18 21:00 Constitutional: Yes: No Distress Eyes: Yes: WNL HENT: Yes: WNL Neck: Yes: WNL Cardiovascular: Yes: WNL Respiratory: Yes: WNL Gastrointestinal: Yes: Normal Bowel Sounds ...Rectal Exam: Yes: Deferred Genitourinary: Yes: WNL Peripheral Pulses WNL: Yes Neurological: Yes: Alert Labs: CBC, BMP 12/06/18 05:28 12/06/18 05:28 INR, PTT INR 1.05 (0.83-1.09) 12/02/18 05:09 Assessment/Plan will discuss with neurology and cardiology may need tranfer to cath 12/08/18 If stess test neg will DC home
[2018-12-08] MEDS ORDERED: REGADENOSON 0.4 MG/5 ML PRE-FILLED SYRINGE IVPUSH ONE (10:36)
--- NOTE | 2018-12-08 12:11 | PN ---
Progress Note (short form) - Note Progress Note: 57 year old female admitted with history of sudden loss of consciousness, and possible seizure activity, found her on the floor unresponsive and frothing at the mouth,she sustained injuries to the right side of the face. Patient also has being experiencing recurring chest pains for over 1 year.(please refer to consult). Patient was seen in the cardiology lab and she is in the process of undergoing a radionuclear stress test. No history of chest pains or discomfort. No shortness of breath, no recurrence of seizures. Active Medications Acetaminophen (Tylenol -) 650 mg PO Q6H PRN PRN Reason: FEVER/PAIN LEVEL 1-3 Last Admin: 12/07/18 21:20 Dose: 650 mg Amlodipine Besylate (Norvasc -) 5 mg PO DAILY [facility] Last Admin: 12/08/18 09:00 Dose: 5 mg Aspirin (Asa -) 81 mg PO DAILY [facility] Last Admin: 12/08/18 09:00 Dose: 81 mg Atorvastatin Calcium (Lipitor -) 20 mg PO HS [facility] Last Admin: 12/07/18 21:16 Dose: 20 mg Clonazepam (Klonopin -) 0.5 mg PO BID PRN PRN Reason: ANXIETY Last Admin: 12/07/18 21:21 Dose: 0.5 mg Clonidine (Catapres -) 0.2 mg PO BID [facility] Last Admin: 12/08/18 09:00 Dose: 0.2 mg Divalproex Sodium (Depakote -) 750 mg PO BID [facility] Last Admin: 12/08/18 09:00 Dose: 750 mg Gabapentin (Neurontin -) 300 mg PO BID PRN PRN Reason: PAIN LEVEL 4-6 Last Admin: 12/07/18 21:20 Dose: 300 mg Glipizide (Glucotrol -) 5 mg PO BID@0700,1630 [facility] Last Admin: 12/08/18 06:19 Dose: Not Given Insulin Aspart (Novolog Vial Sliding Scale -) 1 vial SQ TIDAC [facility]; Protocol Last Admin: 12/08/18 06:20 Dose: Not Given Insulin Detemir (Levemir Vial) 20 units SQ 0700,2200 [facility] Last Admin: 12/08/18 06:19 Dose: Not Given Lorazepam (Ativan -) 2 mg PO DAILY [facility] Last Admin: 12/08/18 09:00 Dose: 2 mg Losartan Potassium (Cozaar -) 50 mg PO DAILY [facility] Last Admin: 12/08/18 09:00 Dose: 50 mg Last Vital Signs Temp Pulse Resp BP Pulse Ox 97.6 F 75 20 161/83 97 12/08/18 10:00 12/08/18 10:00 12/08/18 10:00 12/08/18 10:00 12/08/18 09:00 NECK: Supple, no JVD, carotids 1+, no bruits heard. HEART: PMI not localized, distant heart sounds, no murmur or gallops heard. LUNGS: Clear. Abdomen: Soft, nontender, no organomegaly. EXTREMITIES: No calf tenderness or dependent edema. CBC, BMP 12/06/18 05:28 12/06/18 05:28 IMPRESSION: 1. Chest pain syndrome, CAD needs exclusion. 3. Elevated Trops, etiology: a). NSTEMI b). Seizure activity. 4. IDDM with mulitsystem involvement. 5. HCVD. 6. COPD. 7 Dyslipidemia. 8. Anemia, etiology needs to be determined. RECOMMENDATIONS: 1. Further suggestions will depend of the results of the myocardial perfusion test. 2. Increase ambulation. 3. Evaluation by dietitian. 4. Increase Atrovastatin to 80mg po daily. Sameer Crystal M.D.
[2018-12-08] MEDS: ACETAMINOPHEN 325 MG TABLET (FP) PO PRN (22:14)
[2018-12-08] MEDS: ATORVASTATIN CA 20 MG TABLET (FP) PO SCH (22:14)
[2018-12-08] MEDS: GABAPENTIN 300 MG CAPSULE (FP) PO PRN (22:16)
[2018-12-09] MEDS: clonazePAM 0.5 MG TABLET PO PRN ×2 (00:18→21:11)
[2018-12-09] MEDS: INSULIN (LEVEMIR) 100 UNITS/ML UNITS SQ SCH ×2 (06:23→21:10)
[2018-12-09] MEDS: INSULIN SLIDING SCALE (NOVOLOG) 1 VIAL SQ SCH ×3 (06:23→17:06)
[2018-12-09] MEDS: glipiZIDE 5 MG TABLET (FP) PO SCH ×2 (06:23→17:45)
--- NOTE | 2018-12-09 09:28 | PN ---
Progress Note, Physician Chief Complaint: Feels OK History of Present Illness: Nuclear stress test +ve - Current Medication List Current Medications: Active Medications Acetaminophen (Tylenol -) 650 mg PO Q6H PRN PRN Reason: FEVER/PAIN LEVEL 1-3 Last Admin: 12/08/18 22:14 Dose: 650 mg Amlodipine Besylate (Norvasc -) 5 mg PO DAILY [facility] Last Admin: 12/08/18 09:00 Dose: 5 mg Aspirin (Asa -) 81 mg PO DAILY [facility] Last Admin: 12/08/18 09:00 Dose: 81 mg Atorvastatin Calcium (Lipitor -) 20 mg PO HS [facility] Last Admin: 12/08/18 22:14 Dose: 20 mg Clonazepam (Klonopin -) 0.5 mg PO BID PRN PRN Reason: ANXIETY Last Admin: 12/09/18 00:18 Dose: 0.5 mg Clonidine (Catapres -) 0.2 mg PO BID [facility] Last Admin: 12/08/18 22:15 Dose: 0.2 mg Divalproex Sodium (Depakote -) 750 mg PO BID [facility] Last Admin: 12/08/18 22:13 Dose: 750 mg Gabapentin (Neurontin -) 300 mg PO BID PRN PRN Reason: PAIN LEVEL 4-6 Last Admin: 12/08/18 22:16 Dose: 300 mg Glipizide (Glucotrol -) 5 mg PO BID@0700,1630 [facility] Last Admin: 12/09/18 06:23 Dose: 5 mg Insulin Aspart (Novolog Vial Sliding Scale -) 1 vial SQ TIDAC [facility]; Protocol Last Admin: 12/09/18 06:23 Dose: 2 units Insulin Detemir (Levemir Vial) 20 units SQ 0700,2200 [facility] Last Admin: 12/09/18 06:23 Dose: 20 units Lorazepam (Ativan -) 2 mg PO DAILY [facility] Last Admin: 12/08/18 09:00 Dose: 2 mg Losartan Potassium (Cozaar -) 50 mg PO DAILY [facility] Last Admin: 12/08/18 09:00 Dose: 50 mg - Objective Vital Signs: Vital Signs Temperature 97.5 F L 12/09/18 06:00 Pulse Rate 72 12/09/18 06:00 Respiratory Rate 20 12/09/18 06:00 Blood Pressure 134/79 12/09/18 06:00 O2 Sat by Pulse Oximetry (%) 98 12/08/18 22:00 Constitutional: Yes: No Distress Eyes: Yes: WNL HENT: Yes: WNL Neck: Yes: WNL Cardiovascular: Yes: WNL Respiratory: Yes: WNL Gastrointestinal: Yes: WNL ...Rectal Exam: Yes: Deferred Genitourinary: Yes: WNL Extremities: Yes: WNL Peripheral Pulses WNL: Yes Neurological: Yes: Alert Psychiatric: Yes: Alert Labs: CBC, BMP 12/06/18 05:28 12/06/18 05:28 INR, PTT INR 1.05 (0.83-1.09) 12/02/18 05:09 Assessment/Plan Will discuss with cardiology
[2018-12-09] MEDS: ASPIRIN 81 MG CHEWABLE TABLETS PO SCH (09:54)
[2018-12-09] MEDS: LORazepam 1 MG TABLET PO SCH (09:55)
[2018-12-09] MEDS: cloNIDine HCL 0.1 MG TABLET PO SCH ×2 (09:56→21:09)
[2018-12-09] MEDS: LOSARTAN POTASSIUM 50 MG TABLET (FP) PO SCH (09:57)
[2018-12-09] MEDS: DIVALPROEX SODIUM 250 MG TABLET E.C. PO SCH ×2 (09:57→21:10)
[2018-12-09] MEDS: amLODIPine BESYLATE 5 MG TABLET (FP) PO SCH (09:58)
--- NOTE | 2018-12-09 15:33 | PN ---
Progress Note (short form) - Note Progress Note: 57 year old female admitted with history of sudden loss of consciousness, and possible seizure activity, found her on the floor unresponsive and frothing at the mouth,she sustained injuries to the right side of the face. Patient also has being experiencing recurring chest pains for over 1 year.(please refer to consult). Patient had Myocardial perfusion study(Lexiscan). Moderate reversible apical perfusion scan defect, consistent with ischemia, no TID. Hypokinesia of the inferior wall,EF 48%. No history of chest pains or discomfort. No shortness of breath, no recurrence of seizures. Right facial abrasion, hematomas are stable. Spoke to Dr. Bunch and fellow and arrangements are being made for transfer. Active Medications Generic Name Dose Route Start Last Admin Trade Name Freq PRN Reason Stop Dose Admin Acetaminophen 650 mg 12/03/18 05:03 12/08/18 22:14 Tylenol - PO 650 mg Q6H PRN Administration FEVER/PAIN LEVEL 1-3 Amlodipine Besylate 5 mg 12/03/18 10:00 12/09/18 09:58 Norvasc - PO 5 mg DAILY ARTURO Administration Aspirin 81 mg 12/03/18 10:00 12/09/18 09:54 Asa - PO 81 mg DAILY ARTURO Administration Atorvastatin Calcium 20 mg 12/03/18 22:00 12/08/18 22:14 Lipitor - PO 20 mg HS ARTURO Administration Atorvastatin Calcium 80 mg 12/09/18 16:44 Lipitor - PO 12/09/18 16:45 ONCE ONE Clonazepam 0.5 mg 12/09/18 00:12 12/09/18 00:18 Klonopin - PO 0.5 mg BID PRN Administration ANXIETY Clonidine 0.2 mg 12/03/18 10:00 12/09/18 09:56 Catapres - PO 0.2 mg BID ARTURO Administration Divalproex Sodium 750 mg 12/02/18 22:00 12/09/18 09:57 Depakote - PO 750 mg BID ARTURO Administration Gabapentin 300 mg 12/03/18 09:21 12/08/18 22:16 Neurontin - PO 300 mg BID PRN Administration PAIN LEVEL 4-6 Glipizide 5 mg 12/03/18 16:30 12/09/18 06:23 Glucotrol - PO 5 mg BID@0700,1630 ARTURO Administration Insulin Aspart 1 vial 12/03/18 11:00 12/09/18 12:03 Novolog Vial Sliding Scale - SQ 2 units TIDAC ARTURO Administration Protocol Insulin Detemir 20 units 12/03/18 22:00 12/09/18 06:23 Levemir Vial SQ 20 units 0700,2200 ARTURO Administration Lorazepam 2 mg 12/03/18 10:00 12/09/18 09:55 Ativan - PO 2 mg DAILY ARTURO Administration Losartan Potassium 50 mg 12/03/18 10:00 12/09/18 09:57 Cozaar - PO 50 mg DAILY ARTURO Administration Last Vital Signs Temp Pulse Resp BP Weight Pulse Ox 98.6 F 67 20 112/57. 117kg. 100 12/09/18 14:00 12/09/18 14:00 12/09/18 14:00 12/09/18 14:00 12/09/18 09:00 NECK: Supple, no JVD, carotids 1+, no bruits heard. HEART: PMI not localized, distant heart sounds, no murmur or gallops heard. LUNGS: Clear. Abdomen: Soft, nontender,no organomegaly. EXTREMITIES: No calf tenderness or dependent edema. CBC, BMP 12/06/18 05:28 12/06/18 05:28 EK12/09/18. NSR, diffuse STand T abnormalities I II aVL and across the precordial leads, compared to 12/02/[address] and T abnormalities as mentioned above. 1. Chest pain syndrome, 3. Elevated Trops, etiology: a). NSTEMI. b). Seizures most likely related to discontinuing Klonopin(AMA). 4. IDDM with multisystem involvement. 5. HCVD. 6. COPD. 7. Dyslipidemia. RECOMMENDATIONS: 1.Plavix 75mg.po today in view of EKG changes and ischemic changes on perfusion study. 2.Transfer to [facility] and arrangement have been made. 3. Dr. Harris has been notified and concur with transfer. Sameer Crystal M.D; [facility] Time Spend direct care and arrangement for transfer: 3pm to 5:20 pm
[2018-12-09] MEDS ORDERED: ATORVASTATIN CA 80 MG TABLET (FP) PO ONE (17:00)
[2018-12-09] MEDS: CLOPIDOGREL BISULFATE 75 MG TABLET (FP) PO SCH (20:10)
[2018-12-09] MEDS ORDERED: INSULIN (NOVOLOG) ASPART 100 UNITS/ML 10ML VIAL ONE (21:01)
[2018-12-09] MEDS: ACETAMINOPHEN 325 MG TABLET (FP) PO PRN (21:11)
[2018-12-09] MEDS: GABAPENTIN 300 MG CAPSULE (FP) PO PRN (21:11)
[2018-12-10] MEDS: glipiZIDE 5 MG TABLET (FP) PO SCH ×2 (06:36→17:03)
[2018-12-10] MEDS: INSULIN SLIDING SCALE (NOVOLOG) 1 VIAL SQ SCH ×3 (06:36→17:09)
[2018-12-10] MEDS: INSULIN (LEVEMIR) 100 UNITS/ML UNITS SQ SCH (06:36)
[2018-12-10] MEDS: ASPIRIN 81 MG CHEWABLE TABLETS PO SCH (09:22)
[2018-12-10] MEDS: cloNIDine HCL 0.1 MG TABLET PO SCH (09:22)
[2018-12-10] MEDS: CLOPIDOGREL BISULFATE 75 MG TABLET (FP) PO SCH (09:23)
[2018-12-10] MEDS: amLODIPine BESYLATE 5 MG TABLET (FP) PO SCH (09:23)
[2018-12-10] MEDS: DIVALPROEX SODIUM 250 MG TABLET E.C. PO SCH (09:24)
[2018-12-10] MEDS: LOSARTAN POTASSIUM 50 MG TABLET (FP) PO SCH (09:24)
--- NOTE | 2018-12-10 09:31 | PN ---
Progress Note, Physician Chief Complaint: No chest pain History of Present Illness: Case discussed with Dr Hernández,needs patient to be transferred to [facility] for cardiac cath - Current Medication List Current Medications: Active Medications Acetaminophen (Tylenol -) 650 mg PO Q6H PRN PRN Reason: FEVER/PAIN LEVEL 1-3 Last Admin: 12/09/18 21:11 Dose: 650 mg Amlodipine Besylate (Norvasc -) 5 mg PO DAILY [facility] Last Admin: 12/10/18 09:23 Dose: 5 mg Aspirin (Asa -) 81 mg PO DAILY [facility] Last Admin: 12/10/18 09:22 Dose: 81 mg Atorvastatin Calcium (Lipitor -) [address] [facility] Clonazepam (Klonopin -) 0.5 mg PO BID PRN PRN Reason: ANXIETY Last Admin: 12/09/18 21:11 Dose: 0.5 mg Clonidine (Catapres -) 0.2 mg PO BID [facility] Last Admin: 12/10/18 09:22 Dose: 0.2 mg Clopidogrel Bisulfate (Plavix -) 75 mg PO DAILY [facility] Last Admin: 12/10/18 09:23 Dose: 75 mg Divalproex Sodium (Depakote -) 750 mg PO BID [facility] Last Admin: 12/10/18 09:24 Dose: 750 mg Gabapentin (Neurontin -) 300 mg PO BID PRN PRN Reason: PAIN LEVEL 4-6 Last Admin: 12/09/18 21:11 Dose: 300 mg Glipizide (Glucotrol -) 5 mg PO BID@0700,1630 [facility] Last Admin: 12/10/18 06:36 Dose: Not Given Insulin Aspart (Novolog Vial Sliding Scale -) 1 vial SQ TIDAC [facility]; Protocol Last Admin: 12/10/18 06:36 Dose: Not Given Insulin Detemir (Levemir Vial) 20 units SQ 0700,2200 [facility] Last Admin: 12/10/18 06:36 Dose: Not Given Lorazepam (Ativan -) 2 mg PO DAILY [facility] Last Admin: 12/09/18 09:55 Dose: 2 mg Losartan Potassium (Cozaar -) 50 mg PO DAILY [facility] Last Admin: 12/10/18 09:24 Dose: 50 mg - Objective Vital Signs: Vital Signs Temperature 97.5 F L 12/10/18 06:00 Pulse Rate 61 12/10/18 06:00 Respiratory Rate 20 12/10/18 06:00 Blood Pressure 136/77 12/10/18 06:00 O2 Sat by Pulse Oximetry (%) 94 L 12/09/18 21:00 Constitutional: Yes: No Distress Eyes: Yes: WNL HENT: Yes: WNL Neck: Yes: WNL Cardiovascular: Yes: WNL Respiratory: Yes: WNL Gastrointestinal: Yes: Normal Bowel Sounds ...Rectal Exam: Yes: Deferred Breast(s): Yes: WNL Edema: No Neurological: Yes: Alert Labs: CBC, BMP 12/06/18 05:28 12/06/18 05:28 INR, PTT INR 1.05 (0.83-1.09) 12/02/18 05:09 Assessment/Plan Transfer to [facility]
--- NOTE | 2018-12-10 15:25 | PN ---
Progress Note (short form) - Note Progress Note: 57 year old female admitted with history of sudden loss of consciousness, and possible seizure activity, found her on the floor unresponsive and frothing at the mouth,she sustained injuries to the right side of the face. Patient also has being experiencing recurring chest pains for over 1 year.(please refer to consult). Patient had Myocardial perfusion study(Lexiscan). Moderate reversible apical perfusion scan defect, consistent with ischemia, no TID. Hypokinesia of the inferior wall,EF 48%. No history of chest pains or discomfort. No shortness of breath, no recurrence of seizures. Right facial abrasion, hematomas are stable. Spoke to Dr. Bunch and fellow and arrangements are being made for transfer. Active Medications Acetaminophen (Tylenol -) 650 mg PO Q6H PRN PRN Reason: FEVER/PAIN LEVEL 1-3 Last Admin: 12/09/18 21:11 Dose: 650 mg Amlodipine Besylate (Norvasc -) 5 mg PO DAILY [facility] Last Admin: 12/10/18 09:23 Dose: 5 mg Aspirin (Asa -) 81 mg PO DAILY [facility] Last Admin: 12/10/18 09:22 Dose: 81 mg Atorvastatin Calcium (Lipitor -) 80 mg PO HS [facility] Clonazepam (Klonopin -) 0.5 mg PO BID PRN PRN Reason: ANXIETY Last Admin: 12/09/18 21:11 Dose: 0.5 mg Clonidine (Catapres -) 0.2 mg PO BID [facility] Last Admin: 12/10/18 09:22 Dose: 0.2 mg Clopidogrel Bisulfate (Plavix -) 75 mg PO DAILY [facility] Last Admin: 12/10/18 09:23 Dose: 75 mg Divalproex Sodium (Depakote -) 750 mg PO BID [facility] Last Admin: 12/10/18 09:24 Dose: 750 mg Gabapentin (Neurontin -) 300 mg PO BID PRN PRN Reason: PAIN LEVEL 4-6 Last Admin: 12/09/18 21:11 Dose: 300 mg Glipizide (Glucotrol -) 5 mg PO BID@0700,1630 [facility] Last Admin: 12/10/18 06:36 Dose: Not Given Insulin Aspart (Novolog Vial Sliding Scale -) 1 vial SQ TIDAC [facility]; Protocol Last Admin: 12/10/18 11:34 Dose: 2 units Insulin Detemir (Levemir Vial) 20 units SQ 0700,2200 [facility] Last Admin: 12/10/18 06:36 Dose: Not Given Losartan Potassium (Cozaar -) 50 mg PO DAILY [facility] Last Admin: 12/10/18 09:24 Dose: 50 mg Last Vital Signs Temp Pulse Resp BP Pulse Ox 97.8 F 66 20 128/74 94 L 12/10/18 09:28 12/10/18 09:28 12/10/18 09:28 12/10/18 09:28 12/09/18 21:00 NECK: Supple, no JVD, carotids 1+, no bruits heard. HEART: PMI not localized, distant heart sounds, no murmur or gallops heard. LUNGS: Clear. Abdomen: Soft, nontender,no organomegaly. EXTREMITIES: No calf tenderness or dependent edema. 2 CBC, BMP 12/06/18 05:28 12/06/18 05:28 Impression: 1. Chest pain syndrome, 3. Elevated Trops, etiology: a). NSTEMI. b). Seizures most likely related to discontinuing Klonopin(AMA). 4. IDDM with multisystem involvement. 5. HCVD. 6. COPD. 7. Dyslipidemia. RECOMMENDATIONS: 1.Plavix 75mg.po today in view of EKG changes and ischemic changes on perfusion study. 2.Transfer to [facility] and arrangement have been made. 3. Dr. Harris has been notified and concur with transfer. Sameer Crystal M.D; [facility] Time Spend direct care and arrangement for transfer: 3pm to 5:20 pm
[2018-12-10 15:43] VITALS: BP 117/63; PULSE 64; TEMP 97.9
--- NOTE | 2018-12-10 17:12 | EKG ---
Test Reason : Blood Pressure : / mmHG Vent. Rate : 066 BPM Atrial Rate : 066 BPM P-R Int : 194 ms QRS Dur : 082 ms QT Int : 428 ms P-R-T Axes : 056 009 156 degrees QTc Int : 448 ms NORMAL SINUS RHYTHM T WAVE ABNORMALITY, CONSIDER ANTEROLATERAL ISCHEMIA ABNORMAL ECG WHEN COMPARED WITH ECG OF 02-DEC-2018 01:09, INVERTED T WAVES HAVE REPLACED NONSPECIFIC T WAVE ABNORMALITY IN ANTEROLATERAL LEADS QT HAS LENGTHENED Confirmed by YOLANDA MIXON MD ([id number]) on 12/10/2018 5:11:56 PM Referred By: Daphney COPE Confirmed By:YOLANDA MIXON MD
[2018-12-10] MEDS ORDERED: ATORVASTATIN CA 80 MG TABLET (FP) PO SCH (22:00)
== END 2018-12-10 20:06 | disposition short-term general hospital (02) | DRG 100 ==
LOC: JER 11:52 → UNDOADMIN 21:45 → JERBED 21:45 → JICU 12-02 04:13 → J4W 12-02 16:18
PROVIDERS: ADMIT Internal Medicine; ATTEND Internal Medicine
DX: G40.89 Other seizures (principal); I21.4 Non-ST elevation (NSTEMI) myocardial infarction; Z68.41 Body mass index [BMI] 40.0-44.9, adult; J44.9 Chronic obstructive pulmonary disease, unspecified; E66.01 Morbid (severe) obesity due to excess calories; I11.9 Hypertensive heart disease without heart failure; E11.40 Type 2 diabetes mellitus with diabetic neuropathy, unspecified; G44.309 Post-traumatic headache, unspecified, not intractable; F07.81 Postconcussional syndrome; S01.411A Laceration without foreign body of right cheek and temporomandibular area, initial encounter; W01.0XXA Fall on same level from slipping, tripping and stumbling without subsequent striking against object, initial encounter; Y93.89 Activity, other specified; Y92.030 Kitchen in apartment as the place of occurrence of the external cause; Y99.8 Other external cause status; E78.5 Hyperlipidemia, unspecified; F31.9 Bipolar disorder, unspecified; Z87.891 Personal history of nicotine dependence; M19.90 Unspecified osteoarthritis, unspecified site; Z79.4 Long term (current) use of insulin; G47.30 Sleep apnea, unspecified; R21 Rash and other nonspecific skin eruption; G47.00 Insomnia, unspecified; D64.9 Anemia, unspecified
CPT/HCPCS: 36415; 70450-TC; 70486-TC; 71045-TC-FY; 78452-TC; 80048; 80053; 80164; 80307; 81003; 82550; 82552; 82553; 82607; 82962; 83036; 83735; 84100; 84484; 85025; 85027; 85610; 86593; 90715; 93005; 93010; 93017; 93306-TC; 95816; 99284-25; A9502; J0131; J0735; J2785; J7030

== ENCOUNTER 2019-03-27 18:35 | Inpatient (IN) | payer OTHER ==
[2019-03-27] MEDS ORDERED: ACETAMINOPHEN 1000 MG/100 ML VIAL (NON FORMULARY) IVPB ONE (19:23)
[2019-03-27] MEDS ORDERED: ONDANSETRON 4 MG/2 ML VIAL IVPUSH ONE (19:23)
[2019-03-27] MEDS ORDERED: SODIUM CHLORIDE 0.9% 1000 ML INFUS.BAG IV ONE (19:23)
--- NOTE | 2019-03-27 19:24 | PDOC ---
History of Present Illness - General Chief Complaint: Pain, Acute Stated Complaint: ABD PAIN Time Seen by Provider: 03/27/19 19:06 History Source: Patient - History of Present Illness Initial Comments: 03/27/19 19:16 58 yo F PMH of HTN, HLD, DM, Bipolar, COPD, CAD (s/p bypass in November ) presents to the ED with lower abdominal pain and mucus diarrhea beginning yesterday. pt states that prior to yesterday she has been constipated and her BM have not been normal. She states the pain is in her lower abdomen occurring every 5 minutes and at its worse, is 20/10. At the moment, she is not having the pain. She states that she has not had a good appetite this morning, although she ate a candy bar and then the pain was exacerbated. This morning pt states she took miralax and an enema and since then she is having mucus diarrhea that could not be controlled. pt states that she has not have similar symptoms in the past. Pt also endorses nausea and vomiting. Pt denies hematochezia and hematemesis. Pt states that she also felt mucus built up in her chest and had SOB this am. She states that resolved with nebulizer treatment. She checks her glucose frequently , 100s this am. complaint with home meds 03/27/19 20:09 03/27/19 20:17 Past History - Travel Traveled outside of the country in the last 30 days: No - Past Medical History Allergies/Adverse Reactions: Allergies Allergy/AdvReac Type Severity Reaction Status Date / Time No Known Allergies Allergy Verified 03/27/19 18:48 Home Medications: Ambulatory Orders Divalproex [Depakote -] 750 mg PO BID 12/02/18 Gabapentin 300 mg PO BID 12/02/18 Amiodarone HCl 200 mg PO DAILY 03/27/19 Apixaban [Eliquis -] 5 mg PO DAILY 03/27/19 Aspirin 81 mg PO DAILY 03/27/19 Famotidine [Pepcid -] 20 mg PO DAILY 03/27/19 Metoprolol Tartrate 1 tab PO BID 03/27/19 Rosuvastatin Calcium [Crestor] 20 mg PO HS 03/27/19 Sitagliptin Phos/Metformin HCl [Janumet 50-1,000 mg Tablet] 1 each PO DAILY Anemia: No Asthma: Yes Cancer: No Cardiac Disorders: No CVA: No COPD: Yes CHF: No Dementia: No Diabetes: Yes GI Disorders: No Disorders: No HTN: Yes Hypercholesterolemia: Yes Liver Disease: No Psychiatric Problems: Yes (BI-POLAR, depression) Seizures: No Thyroid Disease: No - Surgical History Abdominal Surgery: No Appendectomy: No Cardiac Surgery: Yes ([facility] summer 2018) Cholecystectomy: No Lung Surgery: No Neurologic Surgery: No Orthopedic Surgery: No - Immunization History Immunization Up to Date: Yes - Psycho Social/Smoking Cessation Hx Smoking History: Never smoked Have you smoked in the past 12 months: No Number of Cigarettes Smoked Daily: 0 If you are a former smoker, when did you quit?: 8 years ago Hx Alcohol Use: No Drug/Substance Use Hx: No Substance Use Type: None Hx Substance Use Treatment: No Review of Systems - Review of Systems Able to Perform ROS?: Yes Constitutional: Yes: Diaphoresis, Loss of Appetite. No: Fever HEENTM: Yes: Difficulty Swallowing Respiratory: Yes: Shortness of Breath Cardiac (ROS): No: Chest Pain, Irregular Heart Rate, Palpitations ABD/GI: Yes: Abd. Pain w/ defecation, Diarrhea, Difficulty Swallowing, Nausea, Poor Appetite, Vomiting, Abdominal cramping. No: Rectal Bleeding : No: Burning, Dysuria, Hematuria Integumentary: Yes: Sweating *Physical Exam - Vital Signs Last Vital Signs Temp Pulse Resp BP Pulse Ox 98 F 80 18 182/96 H 03/27/19 18:46 03/27/19 18:46 03/27/19 18:46 03/27/19 18:46 - Physical Exam General Appearance: Yes: Nourished, Mild Distress Respiratory/Chest: positive: Lungs Clear, Normal Breath Sounds. negative: Respiratory Distress, Accessory Muscle Use, Wheezing Cardiovascular: positive: Regular Rhythm, Regular Rate, S1, S2. negative: JVD Gastrointestinal/Abdominal: positive: Soft, Decreased BS, Tenderness Rectal Exam: positive: normal exam. negative: melena, hemorrhoids (mucus, green stool at vault, no external hemorrhoids visualized, no internal hemorrhoids palpated, no active bleeding noted, no blood on tip of glove) ED Treatment Course - LABORATORY CBC & Chemistry Diagram: 03/27/19 19:45 03/27/19 19:45 Medical Decision Making - Medical Decision Making 58 yo F presenting with abdominal pain and diarrhea r/o diverticulitis -r/o cholelithiasis -r/o pancreatitis -r/o mesenteric ischemia -r/o IBS ,laxative induced diarrhea, abdominal pain -CBC, CMP, lipase -EKG -CXR-->r/o pna , CHF -BGM--> r/o DKA, hyperglycemic episode 03/27/19 20:25 -leukocytosis -BGM 154 -Abdominal u/s -EKG reviewed, NSR. will compare to prior -CT abdomen/ pelvis with IV contrast if renal function ok 03/27/19 20:32 FOBT negative -unlikely pancreatitis, lipase 61 -liver panel wnl -CXR reviewed 03/27/19 23:55 -CT abdomen/pelvis reveals diverticulitis -IV flagyl , cipro started -IVF -admit to med/surg Discharge - Follow up/Referral Referrals: Jessika Mendoza MD [Primary Care Provider] - - Patient Discharge Instructions - Post Discharge Activity
[2019-03-27 19:57] LABS: BASO % 0.4 % (0-2.0); EOS % 0.1 % (0-4.5); HEMATOCRIT 42.1 % (32.4-45.2); HEMOGLOBIN 13.2 GM/dL (10.7-15.3); LYMPH % 12.4 % (8-40); MCH 27.7 pg (25.7-33.7); MCHC 31.3 g/dl (32.0-36.0); MEAN CELL VOLUME 88.3 fl (80-96); MONO % 6.2 % (3.8-10.2); NEUT % 80.9 % (42.8-82.8); PLATELET COUNT 328 K/MM3 (134-434); RBC 4.77 M/mm3 (3.60-5.2); RDW 19.2 % (11.6-15.6); WHITE BLOOD COUNT 18.7 K/mm3 (4.0-10.0)
[2019-03-27 20:20] LABS: ALBUMIN 3.3 g/dl (3.4-5.0); BILIRUBIN,TOTAL 0.3 mg/dL (0.2-1); BLOOD UREA NITROGEN 10.9 mg/dL (7-18); CALCIUM 8.7 mg/dL (8.5-10.1); CREATININE 0.9 mg/dL (0.55-1.3); POTASSIUM 4.4 mmol/L (3.5-5.1); TOT PROT 7.8 g/dl (6.4-8.2)
[2019-03-27] MEDS ORDERED: ONDANSETRON 4 MG/2 ML VIAL ONE (20:27)
[2019-03-27] MEDS ORDERED: ACETAMINOPHEN INJECTION 100 ML IVPB ONE ×2 (20:27→20:36)
[2019-03-27] MEDS: INSULIN SLIDING SCALE (NOVOLOG) 1 VIAL SQ SCH (20:49)
[2019-03-27] MEDS ORDERED: MORPHINE SULFATE 2 MG/ML VIAL IVPUSH ONE (22:22)
[2019-03-27] MEDS ORDERED: morphine CARPU-JECT 4 MG/1 ML DISP.SYRIN IVPUSH PRN (22:22)
[2019-03-27] MEDS ORDERED: DIVALPROEX SODIUM 250 MG TABLET E.C. PO ONE (22:24)
[2019-03-27] MEDS ORDERED: MORPHINE SULFATE 2 MG/ML VIAL ONE (22:38)
--- NOTE | 2019-03-27 22:45 | PDOC ---
Documentation entered by Elida Ball SCRIBE, acting as scribe for Alex Tesfaye MD. Alex Tesfaye MD: This documentation has been prepared by the Quinn portillo Xhesika, SCRIBE, under my direction and personally reviewed by me in its entirety. I confirm that the documentation accurately reflects all work, treatment, procedures, and medical decision making performed by me. Attending Attestation - Resident Resident Name: Stefania Lee - ED Attending Attestation I have performed the following: I have examined & evaluated the patient, The case was reviewed & discussed with the resident, I agree w/resident's findings & plan, Exceptions are as noted - HPI HPI: 03/27/19 19:27 The patient is a 58 year old female with a PMH of HTN, DM, hyperlipidemia, asthma, bipolar disorder, COPD, CAD (s/p bypass in 01/18) who presents to the ED for lower abdominal pain R>L and diarrhea since yesterday. Patient describes the pain as constant, reoccurring every 5 minutes, sharp, and 20/10 in severity. Patient notes prior to her abdominal pain, she was constipated so she took miralax and enema. Pt is now wearing a diaper because her diarrhea is unpredictable. Patient denies any changes in medication, however, she just finished a Z-pack (had flu). The patient denies shortness of breath, headache and dizziness. Denies fever, chills, cough, nausea, vomiting. Denies dysuria, frequency, urgency and hematuria. Allergies:, NKDA Social Hx: Denies current smoking, drinking, or other substance usage. - Physicial Exam PE: 03/27/19 20:49 Vitals: Triage Vital signs reviewed General Appearance: no acute distress, well nourished well developed, Neck: Supple;No Nuchal rigidity Chest Wall: Nontender Cardiac: Regular rate and rhythm, no murmurs, no rubs, no gallops, Lungs: Clear to auscultation bilateral, good air movement bilaterally, Abdomen: +maximal RLQ abdominal pain. Soft, nondistended, normal bowel sounds Extremities: Full range of motion to all extremities, no cyanosis, clubbing, or edema Skin: Warm and dry, no rashes or lesions, no petechiae Neuro: AOX3; Cranial Nerves 2-12 grossly c intact, Strength intact to all extremities, Sensation intact to all extremities Psych: normal mood, normal affect - Medical Decision Making 03/28/19 00:04 Patient with moderate diverticulitis on CAT scan with hypertension vital sign abnormality, acute symptoms pain and diarrhea not sufficiently responsive to therapy
[2019-03-27] MEDS ORDERED: CIPROFLOXACIN 400 MG/D5W 400 MG/200 ML IVPB IVPB ONE (23:48)
[2019-03-28] MEDS ORDERED: CIPROFLOXACIN 400 MG/D5W 400 MG/200 ML IVPB IVPB ONE (02:00)
[2019-03-28 02:22] LABS: URINE APPEARANCE CLEAR; URINE BILIRUBIN NEGATIVE (NEGATIVE); URINE COLOR YELLOW; URINE GLUCOSE (UA) NEGATIVE (NEGATIVE); URINE KETONE NEGATIVE (NEGATIVE)
[2019-03-28 02:23] LABS: EPI CELLS 11.6 /HPF (0-5/HPF); HYALINE CASTS 3.34 /lpf (0-8); URINE BACTERIA 57.8 /hpf (NEGATIVE); URINE LEUK ESTERASE NEGATIVE (NEGATIVE); URINE NITRITE NEGATIVE (NEGATIVE); URINE PROTEIN 30 (NEGATIVE); URINE RBC 7.9 /hpf (0-4); URINE WBC 3.2 /hpf (0-5)
[2019-03-28] MEDS: ACETAMINOPHEN 325 MG TABLET (FP) PO PRN ×4 (04:28→22:58)
[2019-03-28] MEDS: DEXTROSE 5%-0.45% SALINE 1,000 ML IV SCH (04:28)
[2019-03-28] MEDS: INSULIN SLIDING SCALE (NOVOLOG) 1 VIAL SQ SCH ×3 (06:55→18:32)
--- NOTE | 2019-03-28 10:41 | EKG ---
Test Reason : Blood Pressure : / mmHG Vent. Rate : 077 BPM Atrial Rate : 077 BPM P-R Int : 192 ms QRS Dur : 076 ms QT Int : 342 ms P-R-T Axes : 046 014 140 degrees QTc Int : 387 ms NORMAL SINUS RHYTHM POSSIBLE LEFT ATRIAL ENLARGEMENT ANTERIOR INFARCT , AGE UNDETERMINED ABNORMAL ECG WHEN COMPARED WITH ECG OF 09-DEC-2018 15:59, NON-SPECIFIC CHANGE IN ST SEGMENT IN LATERAL LEADS T WAVE INVERSION NO LONGER EVIDENT IN ANTERIOR LEADS QT HAS SHORTENED Confirmed by LUCIANO BLANKENSHIP, VICKI ([id number]) on 03/28/2019 10:40:58 AM Referred By: Confirmed By:VICKI WOLF MD
--- NOTE | 2019-03-28 13:34 | HP ---
DATE OF ADMISSION: 03/27/2019 This is a 58-year-old female known to have seizure disorder, diabetes, coronary artery disease, status post bypass surgery last October; came to the emergency room last night with complaints of generalized abdominal pain and it was diagnosed that she has diverticulitis, sigmoid colon, so got admitted. This morning, she is still complaining of pain. She got IV antibiotics in the ER. She is on multiple medications at home. PHYSICAL EXAMINATION: Vital Signs: On examination today, her blood pressure is 110/56, pulse 68, respirations 20, temperature 98. HEENT: Unremarkable. Neck: Supple. No JVD. Lungs: Clear. Chest: There is a scar of the coronary artery bypass incision, midsternotomy incision. Abdomen: There is generalized tenderness, mostly on the left lower quadrant. Legs: No edema. Neurologic: Grossly normal. LABORATORY REPORTS: WBC 18.7, hemoglobin 13.2. Chemistry: Sodium 138, potassium 4.4, chloride 102, creatinine 0.9, BUN 10.9. Glucometer blood sugar is 126. Lipase 61. CHEST X-RAY: Negative. ELECTROCARDIOGRAM: Normal sinus rhythm. IMPRESSION: 1. Acute diverticulitis. 2. Atherosclerotic heart disease. 3. Diabetes. 4. Seizure disorder. PLAN: Continue her home medications, IV antibiotics, ID consult. Karey [id number]
--- NOTE | 2019-03-28 15:18 | CON.ID ---
Consult - History of Present Illness History of Present Illness: Pt is a 58 y.o. female with PMH of CAD s/p bypass, DM, HTN, HLD, Bipolar d.o. who presented to the ER with severe abdominal pain that began 2 nights ago. She stated the pain and bloating was severe and she began having large amounts of mucoid stool. She took miralax and an enema because she had been constipated for a few days prior to her abd pain. Her pain is described as severe and intermittent, located in lower abdomen. She denies fever or chills but had one episode of vomiting after eating a piece of chocolate. In the ER patient was given pain medication. Currently she is relatively comfortable. Her WBC count was elevated to 18.7K and CT A/P showed sigmoid diverticulitis without abscess. She denies having any other specific complaints. - History Source History Provided By: Patient Limitations to Obtaining History: No Limitations - Past Medical History Cardio/Vascular: Yes: CAD, HTN Pulmonary: Yes: Asthma ...LMP: 11/06/15 Psych: Yes: Bipolar Endocrine: Yes: Diabetes Mellitus - Past Surgical History Past Surgical History: Yes: None, Bypass - Alcohol/Substance Use Hx Alcohol Use: No - Smoking History Smoking history: Never smoked Have you smoked in the past 12 months: No Aproximately how many cigarettes per day: 0 If you are a former smoker, when did you quit?: 8 years ago - Social History Usual Living Arrangement: Alone Home Medications - Allergies Allergies/Adverse Reactions: Allergies Allergy/AdvReac Type Severity Reaction Status Date / Time No Known Allergies Allergy Verified 03/27/19 18:48 - Home Medications Home Medications: Ambulatory Orders Divalproex [Depakote -] 750 mg PO BID 12/02/18 Gabapentin 300 mg PO BID 12/02/18 Amiodarone HCl 200 mg PO DAILY 03/27/19 Apixaban [Eliquis -] 5 mg PO DAILY 03/27/19 Aspirin 81 mg PO DAILY 03/27/19 Famotidine [Pepcid -] 20 mg PO DAILY 03/27/19 Metoprolol Tartrate 1 tab PO BID 03/27/19 Rosuvastatin Calcium [Crestor] 20 mg PO HS 03/27/19 Sitagliptin Phos/Metformin HCl [Janumet 50-1,000 mg Tablet] 1 each PO DAILY Review of Systems - Review of Systems Constitutional: reports: No Symptoms. denies: Chills, Diaphoresis, Fever, Lethargy, Loss of Appetite, Malaise, Night Sweats, Unintentional Wgt. Loss, Weakness, Other Eyes: denies: Blind Spots, Blurred Vision, Double Vision, Eye Pain, Floaters, Photophobia, Recent Change in Vision, Other HENT: reports: No Symptoms. denies: Difficult Swallowing, Ear Discharge, Ear Pain, Epistaxis, Gingival Bleeding, Hearing Loss, Mouth Swelling, Nasal Congestion, Ocular Prosthesis, Throat Pain, Toothache, Ringing in Ears, Other Neck: reports: No Symptoms. denies: Decreased ROM, Lumps, Pain on Movement, Stiffness, Swollen Glands, Tenderness, Other Cardiovascular: reports: No Symptoms. denies: Chest Pain, Edema, Palpitations, Shortness of Breath, Other Respiratory: reports: No Symptoms. denies: Cough, Exercise Intolerance, Hemoptysis, Orthopnea, PND, Snoring, SOB, SOB on Exertion, Wheezing, Other Gastrointestinal: reports: Abdominal Pain, Bloating, Diarrhea Genitourinary: reports: No Symptoms. denies: Burning, Discharge, Dysuria, Flank Pain, Frequency, Hematuria, Incontinence, Lesions, Menses, Pain, Testicular Mass, Testicular Pain, Testicular Swelling, Urgency, Vaginal Bleeding , Other Breasts: reports: No Symptoms Reported. denies: See HPI, Breast Implants, Discharge from Nipple, Lumps, Pain, Skin Changes, Other Musculoskeletal: reports: No Symptoms. denies: Back Pain, Crepitus, Decreased ROM, Extremity Pain, Joint Pain, Joint Swelling, Muscle Pain, Muscle Cramps, Muscle Weakness, Other Integumentary: reports: No Symptoms. denies: Blister, Bruising, Change in Color , Eczema, Erythema, Incision, Lesions, Lump, Pallor, Pruritis, Rash, Wound, Other Neurological: reports: No Symptoms. denies: Change in LOC, Change in Speech, Confusion, Dizziness, Headache, Incoordination, Numbness, Parasthesia, Pre- Existing Deficit, Seizure, Syncope, Tremors, Unsteady Gait, Weakness, Other Endocrine: reports: No Symptoms. denies: Excessive Sweating, Flushing, Increased Hunger, Increased Thirst, Intolerance to Cold, Intolerance to Heat, Unexplained Weight Gain, Unexplained Weight Loss, Other Hematology/Lymphatic: reports: No Symptoms. denies: Easily Bruised, Excessive Bleeding, Swollen Glands, Other Physical Exam Vital Signs: Vital Signs Temperature 97.9 F 03/28/19 13:28 Pulse Rate 66 03/28/19 13:28 Respiratory Rate 18 03/28/19 13:28 Blood Pressure 144/70 03/28/19 13:28 O2 Sat by Pulse Oximetry (%) 96 03/28/19 13:00 Constitutional: Yes: No Distress, Calm Eyes: Yes: Conjunctiva Clear, EOM Intact HENT: Yes: Atraumatic, Normocephalic Neck: Yes: Supple, Trachea Midline Cardiovascular: Yes: Regular Rate and Rhythm Respiratory: Yes: CTA Bilaterally Gastrointestinal: Yes: Normal Bowel Sounds, Soft, Abdomen, Obese, Tenderness ( generalized lower abdomen) Renal/: Yes: WNL Musculoskeletal: Yes: WNL Extremities: Yes: WNL Edema: No Peripheral Pulses WNL: Yes Integumentary: Yes: WNL Neurological: Yes: Alert, Oriented Psychiatric: Yes: Alert Labs: CBC, BMP 03/27/19 19:45 03/27/19 19:45 Laboratory Tests 03/27/19 03/27/19 03/27/19 02:00 19:28 19:45 WBC 18.7 H RBC 4.77 Hgb 13.2 Hct 42.1 D MCV 88.3 MCH 27.7 D MCHC 31.3 L RDW 19.2 H Plt Count 328 MPV 10.0 Absolute Neuts (auto) 15.1 H Neutrophils % 80.9 D Lymphocytes % 12.4 D Monocytes % 6.2 Eosinophils % 0.1 D Basophils % 0.4 Nucleated RBC % 0 Sodium Potassium Chloride Carbon Dioxide Anion Gap BUN Creatinine Est GFR (CKD-EPI)AfAm Est GFR (CKD-EPI)NonAf POC Glucometer 153 Random Glucose Calcium Total Bilirubin AST ALT Alkaline Phosphatase Total Protein Albumin Lipase Urine Color Yellow Urine Appearance Clear Urine pH 6.[address] [place] 1.090 H Urine Protein 30 Urine Glucose (UA) Negative Urine Ketones Negative Urine Blood Negative Urine Nitrite Negative Urine Bilirubin Negative Urine Urobilinogen 1.0 Ur Leukocyte Esterase Negative Urine WBC (Auto) 3.2 Urine RBC (Auto) 7.9 Urine Casts (Auto) 3.34 U Epithel Cells (Auto) 11.6 Urine Bacteria (Auto) 57.8 Stool Occult Blood 03/27/19 03/27/19 03/27/19 19:45 19:45 19:45 WBC RBC Hgb Hct MCV MCH MCHC RDW Plt Count MPV Absolute Neuts (auto) Neutrophils % Lymphocytes % Monocytes % Eosinophils % Basophils % Nucleated RBC % Sodium 138 Potassium 4.4 Chloride 102 Carbon Dioxide 27 Anion Gap 8 BUN 10.9 Creatinine 0.9 Est GFR (CKD-EPI)AfAm 82.84 Est GFR (CKD-EPI)NonAf 71.48 POC Glucometer Random Glucose 154 H Calcium 8.7 Total Bilirubin 0.3 AST 6 L ALT 11 L Alkaline Phosphatase 74 Total Protein 7.8 Albumin 3.3 L Lipase 61 L Urine Color Urine Appearance Urine pH Ur Specific [place] Urine Protein Urine Glucose (UA) Urine Ketones Urine Blood Urine Nitrite Urine Bilirubin Urine Urobilinogen Ur Leukocyte Esterase Urine WBC (Auto) Urine RBC (Auto) Urine Casts (Auto) U Epithel Cells (Auto) Urine Bacteria (Auto) Stool Occult Blood Negative 03/28/19 03/28/19 03/28/19 03:08 06:45 11:53 WBC RBC Hgb Hct MCV MCH MCHC RDW Plt Count MPV Absolute Neuts (auto) Neutrophils % Lymphocytes % Monocytes % Eosinophils % Basophils % Nucleated RBC % Sodium Potassium Chloride Carbon Dioxide Anion Gap BUN Creatinine Est GFR (CKD-EPI)AfAm Est GFR (CKD-EPI)NonAf POC Glucometer 145 143 126 Random Glucose Calcium Total Bilirubin AST ALT Alkaline Phosphatase Total Protein Albumin Lipase Urine Color Urine Appearance Urine pH Ur Specific [place] Urine Protein Urine Glucose (UA) Urine Ketones Urine Blood Urine Nitrite Urine Bilirubin Urine Urobilinogen Ur Leukocyte Esterase Urine WBC (Auto) Urine RBC (Auto) Urine Casts (Auto) U Epithel Cells (Auto) Urine Bacteria (Auto) Stool Occult Blood Imaging - Results Cat Scan: Report Reviewed Problem List - Problems (1) Diabetes mellitus Code(s): E11.9 - TYPE 2 DIABETES MELLITUS WITHOUT COMPLICATIONS Qualifiers: Diabetes mellitus type: type 2 Diabetes mellitus extermination supervisor insulin use: with extermination supervisor use Diabetes mellitus complication status: with unspecified complications (2) HLD (hyperlipidemia) Code(s): E78.5 - HYPERLIPIDEMIA, UNSPECIFIED (3) HTN (hypertension) Code(s): I10 - ESSENTIAL (PRIMARY) HYPERTENSION Qualifiers: Hypertension type: unspecified Qualified Code(s): I10 - Essential (primary ) hypertension (4) T2DM (type 2 diabetes mellitus) Code(s): E11.9 - TYPE 2 DIABETES MELLITUS WITHOUT COMPLICATIONS Assessment/Plan Pt is a 58 y.o. female with PMH of CAD s/p bypass, DM, HTN, HLD, Bipolar d.o. who presented to the ER with severe abdominal pain that began 2 nights ago associated with mucoid/non-bloody diarrhea Acute Sigmoid diverticulitis w/o abscess Leukocytosis DM CAD s/p CABG HTN HLD Bipolar d.o. -- will start Zosyn IV -- monitor wbc trend -- bowel rest -- pain control Pt is currently afebrile, stable Continue monitor Will follow Thank you
[2019-03-28] MEDS ORDERED: PIPERACILLIN/TAZOBACTAM 3.375 GM VIAL IVPB ONE (18:19)
[2019-03-28] MEDS ORDERED: DEXTROSE 5%-WATER - 50 ML IVPB ONE (18:19)
[2019-03-28] MEDS: PIPERACILLIN/TAZOB 3.375 GM 3.375 GM in DEXTROSE 5%-WATER - 50 ML IVPB SCH (18:24)
[2019-03-28] MEDS: METOPROLOL TARTRATE 50 MG TABLET (FP) PO SCH (21:06)
[2019-03-28] MEDS: DIVALPROEX SODIUM 250 MG TABLET E.C. PO SCH (21:06)
[2019-03-29] MEDS ORDERED: PIPERACILLIN/TAZOBACTAM 3.375 GM VIAL IVPB ONE ×3 (00:16→16:30)
[2019-03-29] MEDS ORDERED: DEXTROSE 5%-WATER - 50 ML IVPB ONE ×3 (00:17→16:30)
[2019-03-29] MEDS: PIPERACILLIN/TAZOB 3.375 GM 3.375 GM in DEXTROSE 5%-WATER - 50 ML IVPB SCH ×3 (01:01→17:08)
[2019-03-29] MEDS: INSULIN SLIDING SCALE (NOVOLOG) 1 VIAL SQ SCH ×4 (07:01→21:59)
[2019-03-29] MEDS: sitaGLIPtin PHOSPHATE 50 MG TABLET PO SCH (07:29)
[2019-03-29] MEDS: metFORMIN HCL 500 MG TABLET (FP) PO SCH (07:29)
[2019-03-29] MEDS: DEXTROSE 5%-0.45% SALINE 1,000 ML IV SCH ×2 (07:29→13:53)
[2019-03-29] MEDS: DIVALPROEX SODIUM 250 MG TABLET E.C. PO SCH ×2 (09:03→21:59)
[2019-03-29] MEDS: APIXABAN 5 MG TABLET PO SCH (09:04)
[2019-03-29] MEDS: METOPROLOL TARTRATE 50 MG TABLET (FP) PO SCH ×2 (09:04→21:59)
[2019-03-29] MEDS: ASPIRIN 81 MG CHEWABLE TABLETS PO SCH (09:07)
[2019-03-29] MEDS: AMIODARONE HCL 200 MG TABLET (FP) PO SCH (09:07)
[2019-03-29] MEDS: FAMOTIDINE 20 MG TABLET PO SCH (09:07)
--- NOTE | 2019-03-29 09:08 | PN ---
Progress Note, Physician Chief Complaint: Feels better,wants to eat History of Present Illness: 58 yr old female with multiple medical problems admitted with diverticulitis Dr Grover ID consult appreciated After getting Zosyn she is feeling better - Current Medication List Current Medications: Active Medications Acetaminophen (Tylenol -) 650 mg PO Q4H PRN PRN Reason: PAIN LEVEL 1 - 7 Last Admin: 03/28/19 22:58 Dose: 650 mg Amiodarone HCl (Cordarone -) 200 mg PO DAILY [facility] Apixaban (Eliquis -) 5 mg PO DAILY [facility] Aspirin (Asa -) 81 mg PO DAILY [facility] Divalproex Sodium (Depakote -) 750 mg PO BID [facility] Last Admin: 03/28/19 21:06 Dose: 750 mg Famotidine (Pepcid -) 20 mg PO DAILY [facility] Dextrose/Sodium Chloride (D5-1/2ns -) 1,000 mls @ 42 mls/hr IV ASDIR [facility] Last Admin: 03/29/19 07:29 Dose: Not Given Piperacillin Sod/Tazobactam (Sod 3.375 gm/ Dextrose) 50 mls @ 100 mls/hr IVPB Q8H-IV [facility]; Protocol Last Admin: 03/29/19 01:01 Dose: 100 mls/hr Insulin Aspart (Novolog Vial Sliding Scale -) 1 vial SQ TIDAC [facility]; Protocol Last Admin: 03/29/19 07:01 Dose: Not Given Metformin HCl (Glucophage -) 1,000 mg PO DAILY@0700 [facility] Last Admin: 03/29/19 07:29 Dose: Not Given Metoprolol Tartrate (Lopressor -) 50 mg PO BID [facility] Last Admin: 03/28/19 21:06 Dose: 50 mg Sitagliptin Phosphate (Januvia -) 50 mg PO DAILY@0700 [facility] Last Admin: 03/29/19 07:29 Dose: Not Given - Objective Vital Signs: Vital Signs Temperature 97.6 F 03/29/19 06:53 Pulse Rate 58 L 03/29/19 06:53 Respiratory Rate 18 03/29/19 06:53 Blood Pressure 124/70 03/29/19 06:53 O2 Sat by Pulse Oximetry (%) 95 03/28/19 20:28 Constitutional: Yes: No Distress Eyes: Yes: WNL HENT: Yes: WNL Neck: Yes: WNL Cardiovascular: Yes: WNL Respiratory: Yes: WNL Gastrointestinal: Yes: Other (abominal tenderness much less) Genitourinary: Yes: WNL Breast(s): Yes: WNL Musculoskeletal: Yes: WNL Extremities: Yes: WNL Edema: No ...Motor Strength: WNL Labs: CBC, BMP 03/27/19 19:45 03/27/19 19:45 Assessment/Plan Start on liquid diet
[2019-03-29] MEDS ORDERED: APIXABAN 5 MG TABLET PO SCH (10:00)
[2019-03-29 12:04] VITALS: BMI 39.5
--- NOTE | 2019-03-29 12:53 | PN ---
Progress Note, Physician History of Present Illness: starting to feel better abd softer starting to pass flatus - Current Medication List Current Medications: Active Medications Acetaminophen (Tylenol -) 650 mg PO Q4H PRN PRN Reason: PAIN LEVEL 1 - 7 Last Admin: 03/28/19 22:58 Dose: 650 mg Amiodarone HCl (Cordarone -) 200 mg PO DAILY [facility] Last Admin: 03/29/19 09:07 Dose: 200 mg Apixaban (Eliquis -) 5 mg PO DAILY [facility] Last Admin: 03/29/19 09:04 Dose: 5 mg Aspirin (Asa -) 81 mg PO DAILY [facility] Last Admin: 03/29/19 09:07 Dose: 81 mg Divalproex Sodium (Depakote -) 750 mg PO BID [facility] Last Admin: 03/29/19 09:03 Dose: 750 mg Famotidine (Pepcid -) 20 mg PO DAILY [facility] Last Admin: 03/29/19 09:07 Dose: 20 mg Dextrose/Sodium Chloride (D5-1/2ns -) 1,000 mls @ 42 mls/hr IV ASDIR [facility] Last Admin: 03/29/19 07:29 Dose: Not Given Piperacillin Sod/Tazobactam (Sod 3.375 gm/ Dextrose) 50 mls @ 100 mls/hr IVPB Q8H-IV [facility]; Protocol Last Admin: 03/29/19 09:07 Dose: 100 mls/hr Insulin Aspart (Novolog Vial Sliding Scale -) 1 vial SQ ACHS [facility]; Protocol Metformin HCl (Glucophage -) 1,000 mg PO DAILY@0700 [facility] Last Admin: 03/29/19 07:29 Dose: Not Given Metoprolol Tartrate (Lopressor -) 50 mg PO BID [facility] Last Admin: 03/29/19 09:04 Dose: 50 mg Sitagliptin Phosphate (Januvia -) 50 mg PO DAILY@0700 [facility] Last Admin: 03/29/19 07:29 Dose: Not Given - Objective Vital Signs: Vital Signs Temperature 97.8 F 03/29/19 10:00 Pulse Rate 61 03/29/19 10:00 Respiratory Rate 18 03/29/19 10:00 Blood Pressure 133/72 03/29/19 10:00 O2 Sat by Pulse Oximetry (%) 95 03/28/19 20:28 Constitutional: Yes: No Distress, Calm Cardiovascular: Yes: S1, S2 Respiratory: Yes: Regular, CTA Bilaterally Gastrointestinal: Yes: Soft, Hypoactive Bowel Sounds Musculoskeletal: Yes: WNL Extremities: Yes: WNL Neurological: Yes: Alert, Oriented Psychiatric: Yes: Alert, Oriented Labs: CBC, BMP 03/27/19 19:45 03/27/19 19:45 Assessment/Plan [facility] List - Problems (1) Diabetes mellitus Code(s): E11.9 - TYPE 2 DIABETES MELLITUS WITHOUT COMPLICATIONS Qualifiers: Diabetes mellitus type: type 2 Diabetes mellitus care home insulin use: with care home use Diabetes mellitus complication status: with unspecified complications (2) HLD (hyperlipidemia) Code(s): E78.5 - HYPERLIPIDEMIA, UNSPECIFIED (3) HTN (hypertension) Code(s): I10 - ESSENTIAL (PRIMARY) HYPERTENSION Qualifiers: Hypertension type: unspecified Qualified Code(s): I10 - Essential (primary ) hypertension (4) T2DM (type 2 diabetes mellitus) Code(s): E11.9 - TYPE 2 DIABETES MELLITUS WITHOUT COMPLICATIONS Assessment/Plan Pt is a 58 y.o. female with PMH of CAD s/p bypass, DM, HTN, HLD, Bipolar d.o. who presented to the ER with severe abdominal pain that began 2 nights ago associated with mucoid/non-bloody diarrhea Acute Sigmoid diverticulitis w/o abscess Leukocytosis DM CAD s/p CABG HTN HLD Bipolar d.o. --ct abx -- monitor wbc trend -- bowel rest -- pain control
[2019-03-30] MEDS ORDERED: PIPERACILLIN/TAZOBACTAM 3.375 GM VIAL IVPB ONE ×3 (01:00→16:30)
[2019-03-30] MEDS ORDERED: DEXTROSE 5%-WATER - 50 ML IVPB ONE ×3 (01:01→16:30)
[2019-03-30] MEDS: PIPERACILLIN/TAZOB 3.375 GM 3.375 GM in DEXTROSE 5%-WATER - 50 ML IVPB SCH ×3 (01:42→17:07)
[2019-03-30 06:47] LABS: HEMATOCRIT 37.1 % (32.4-45.2); HEMOGLOBIN 11.8 GM/dL (10.7-15.3); MCH 28.4 pg (25.7-33.7); MCHC 31.8 g/dl (32.0-36.0); MEAN CELL VOLUME 89.3 fl (80-96); MEAN PLT VOLUME 9.5 fl (7.5-11.1); PLATELET COUNT 296 K/MM3 (134-434); RBC 4.16 M/mm3 (3.60-5.2); RDW 19.1 % (11.6-15.6); WHITE BLOOD COUNT 7.4 K/mm3 (4.0-10.0)
[2019-03-30] MEDS: DEXTROSE 5%-0.45% SALINE 1,000 ML IV SCH ×2 (07:00→16:36)
[2019-03-30] MEDS: INSULIN SLIDING SCALE (NOVOLOG) 1 VIAL SQ SCH ×4 (07:01→22:11)
[2019-03-30] MEDS: sitaGLIPtin PHOSPHATE 50 MG TABLET PO SCH (07:01)
[2019-03-30] MEDS: metFORMIN HCL 500 MG TABLET (FP) PO SCH (07:01)
[2019-03-30 07:22] LABS: ALBUMIN 2.8 g/dl (3.4-5.0); BILIRUBIN,TOTAL 0.4 mg/dL (0.2-1); BLOOD UREA NITROGEN 8.9 mg/dL (7-18); CALCIUM 8.6 mg/dL (8.5-10.1); CREATININE 0.8 mg/dL (0.55-1.3); POTASSIUM 3.7 mmol/L (3.5-5.1); TOT PROT 6.6 g/dl (6.4-8.2)
--- NOTE | 2019-03-30 09:33 | PN ---
Progress Note, Physician Chief Complaint: Bad diarrhea last night - Current Medication List Current Medications: Active Medications Acetaminophen (Tylenol -) 650 mg PO Q4H PRN PRN Reason: PAIN LEVEL 1 - 7 Last Admin: 03/28/19 22:58 Dose: 650 mg Amiodarone HCl (Cordarone -) 200 mg PO DAILY [facility] Last Admin: 03/29/19 09:07 Dose: 200 mg Apixaban (Eliquis -) 5 mg PO DAILY [facility] Last Admin: 03/29/19 09:04 Dose: 5 mg Aspirin (Asa -) 81 mg PO DAILY [facility] Last Admin: 03/29/19 09:07 Dose: 81 mg Divalproex Sodium (Depakote -) 750 mg PO BID [facility] Last Admin: 03/29/19 21:59 Dose: 750 mg Famotidine (Pepcid -) 20 mg PO DAILY [facility] Last Admin: 03/29/19 09:07 Dose: 20 mg Dextrose/Sodium Chloride (D5-1/2ns -) 1,000 mls @ 42 mls/hr IV ASDIR [facility] Last Admin: 03/30/19 07:00 Dose: Not Given Piperacillin Sod/Tazobactam (Sod 3.375 gm/ Dextrose) 50 mls @ 100 mls/hr IVPB Q8H-IV [facility]; Protocol Last Admin: 03/30/19 01:42 Dose: 100 mls/hr Insulin Aspart (Novolog Vial Sliding Scale -) 1 vial SQ ACHS [facility]; Protocol Last Admin: 03/30/19 07:01 Dose: Not Given Metformin HCl (Glucophage -) 1,000 mg PO DAILY@0700 [facility] Last Admin: 03/30/19 07:01 Dose: 1,000 mg Metoprolol Tartrate (Lopressor -) 50 mg PO BID [facility] Last Admin: 03/29/19 21:59 Dose: 50 mg Sitagliptin Phosphate (Januvia -) 50 mg PO DAILY@0700 [facility] Last Admin: 03/30/19 07:01 Dose: 50 mg - Objective Vital Signs: Vital Signs Temperature 97.5 F L 03/30/19 07:56 Pulse Rate 50 L 03/30/19 07:56 Respiratory Rate 18 03/30/19 07:56 Blood Pressure 154/74 03/30/19 07:56 O2 Sat by Pulse Oximetry (%) 96 03/29/19 17:00 Constitutional: Yes: Mild Distress Eyes: Yes: WNL HENT: Yes: WNL Neck: Yes: WNL Cardiovascular: Yes: WNL Respiratory: Yes: WNL Gastrointestinal: Yes: WNL ...Rectal Exam: Yes: WNL Genitourinary: Yes: WNL Breast(s): Yes: WNL Musculoskeletal: Yes: WNL Edema: No ...Motor Strength: WNL Labs: CBC, BMP 03/30/19 06:15 03/30/19 06:15 Assessment/Plan Continue same trt
[2019-03-30] MEDS ORDERED: PT OWN MED DRAWER 7, Y5N ONE (10:01)
[2019-03-30] MEDS: FAMOTIDINE 20 MG TABLET PO SCH (10:04)
[2019-03-30] MEDS: APIXABAN 5 MG TABLET PO SCH (10:04)
[2019-03-30] MEDS: AMIODARONE HCL 200 MG TABLET (FP) PO SCH (10:04)
[2019-03-30] MEDS: METOPROLOL TARTRATE 50 MG TABLET (FP) PO SCH ×2 (10:04→22:10)
[2019-03-30] MEDS: ASPIRIN 81 MG CHEWABLE TABLETS PO SCH (10:04)
[2019-03-30] MEDS: DIVALPROEX SODIUM 250 MG TABLET E.C. PO SCH ×2 (10:04→22:10)
--- NOTE | 2019-03-30 12:43 | PN ---
Progress Note, Physician History of Present Illness: stable improving had dirrhoea last night abd pain better - Current Medication List Current Medications: Active Medications Acetaminophen (Tylenol -) 650 mg PO Q4H PRN PRN Reason: PAIN LEVEL 1 - 7 Last Admin: 03/28/19 22:58 Dose: 650 mg Amiodarone HCl (Cordarone -) 200 mg PO DAILY [facility] Last Admin: 03/30/19 10:04 Dose: 200 mg Apixaban (Eliquis -) 5 mg PO DAILY [facility] Last Admin: 03/30/19 10:04 Dose: 5 mg Aspirin (Asa -) 81 mg PO DAILY [facility] Last Admin: 03/30/19 10:04 Dose: 81 mg Divalproex Sodium (Depakote -) 750 mg PO BID [facility] Last Admin: 03/30/19 10:04 Dose: 750 mg Famotidine (Pepcid -) 20 mg PO DAILY [facility] Last Admin: 03/30/19 10:04 Dose: 20 mg Dextrose/Sodium Chloride (D5-1/2ns -) 1,000 mls @ 42 mls/hr IV ASDIR [facility] Last Admin: 03/30/19 07:00 Dose: Not Given Piperacillin Sod/Tazobactam (Sod 3.375 gm/ Dextrose) 50 mls @ 100 mls/hr IVPB Q8H-IV [facility]; Protocol Last Admin: 03/30/19 10:05 Dose: 100 mls/hr Insulin Aspart (Novolog Vial Sliding Scale -) 1 vial SQ ACHS [facility]; Protocol Last Admin: 03/30/19 07:01 Dose: Not Given Metformin HCl (Glucophage -) 1,000 mg PO DAILY@0700 [facility] Last Admin: 03/30/19 07:01 Dose: 1,000 mg Metoprolol Tartrate (Lopressor -) 50 mg PO BID [facility] Last Admin: 03/30/19 10:04 Dose: 50 mg Sitagliptin Phosphate (Januvia -) 50 mg PO DAILY@0700 [facility] Last Admin: 03/30/19 07:01 Dose: 50 mg - Objective Vital Signs: Vital Signs Temperature 97.5 F L 03/30/19 07:56 Pulse Rate 50 L 03/30/19 07:56 Respiratory Rate 18 03/30/19 09:00 Blood Pressure 154/74 03/30/19 07:56 O2 Sat by Pulse Oximetry (%) 98 03/30/19 09:00 Constitutional: Yes: No Distress, Calm Labs: CBC, BMP 03/30/19 06:15 03/30/19 06:15
[2019-03-31] MEDS ORDERED: PIPERACILLIN/TAZOBACTAM 3.375 GM VIAL IVPB ONE ×3 (01:24→18:31)
[2019-03-31] MEDS ORDERED: DEXTROSE 5%-WATER - 50 ML IVPB ONE ×3 (01:24→18:31)
[2019-03-31] MEDS: PIPERACILLIN/TAZOB 3.375 GM 3.375 GM in DEXTROSE 5%-WATER - 50 ML IVPB SCH ×3 (02:24→18:49)
[2019-03-31] MEDS: DEXTROSE 5%-0.45% SALINE 1,000 ML IV SCH (06:53)
[2019-03-31] MEDS: metFORMIN HCL 500 MG TABLET (FP) PO SCH (06:54)
[2019-03-31] MEDS: sitaGLIPtin PHOSPHATE 50 MG TABLET PO SCH (06:54)
[2019-03-31] MEDS: INSULIN SLIDING SCALE (NOVOLOG) 1 VIAL SQ SCH ×4 (06:56→21:50)
--- NOTE | 2019-03-31 09:18 | PN ---
Progress Note, Physician Chief Complaint: Feels better,no diarrhea - Current Medication List Current Medications: Active Medications Acetaminophen (Tylenol -) 650 mg PO Q4H PRN PRN Reason: PAIN LEVEL 1 - 7 Last Admin: 03/28/19 22:58 Dose: 650 mg Amiodarone HCl (Cordarone -) 200 mg PO DAILY [facility] Last Admin: 03/30/19 10:04 Dose: 200 mg Apixaban (Eliquis -) 5 mg PO DAILY [facility] Last Admin: 03/30/19 10:04 Dose: 5 mg Aspirin (Asa -) 81 mg PO DAILY [facility] Last Admin: 03/30/19 10:04 Dose: 81 mg Divalproex Sodium (Depakote -) 750 mg PO BID [facility] Last Admin: 03/30/19 22:10 Dose: 750 mg Famotidine (Pepcid -) 20 mg PO DAILY [facility] Last Admin: 03/30/19 10:04 Dose: 20 mg Dextrose/Sodium Chloride (D5-1/2ns -) 1,000 mls @ 42 mls/hr IV ASDIR [facility] Last Admin: 03/31/19 06:53 Dose: Not Given Piperacillin Sod/Tazobactam (Sod 3.375 gm/ Dextrose) 50 mls @ 100 mls/hr IVPB Q8H-IV [facility]; Protocol Last Admin: 03/31/19 02:24 Dose: 100 mls/hr Insulin Aspart (Novolog Vial Sliding Scale -) 1 vial SQ ACHS [facility]; Protocol Last Admin: 03/31/19 06:56 Dose: Not Given Metformin HCl (Glucophage -) 1,000 mg PO DAILY@0700 [facility] Last Admin: 03/31/19 06:54 Dose: 1,000 mg Metoprolol Tartrate (Lopressor -) 50 mg PO BID [facility] Last Admin: 03/30/19 22:10 Dose: 50 mg Sitagliptin Phosphate (Januvia -) 50 mg PO DAILY@0700 [facility] Last Admin: 03/31/19 06:54 Dose: 50 mg - Objective Vital Signs: Vital Signs Temperature 98.1 F 03/30/19 22:00 Pulse Rate 63 03/30/19 22:00 Respiratory Rate 18 03/30/19 22:00 Blood Pressure 124/75 03/30/19 22:00 O2 Sat by Pulse Oximetry (%) 98 03/30/19 21:00 Constitutional: Yes: No Distress Eyes: Yes: WNL HENT: Yes: WNL Neck: Yes: WNL Cardiovascular: Yes: WNL Respiratory: Yes: WNL Gastrointestinal: Yes: WNL ...Rectal Exam: Yes: Deferred Genitourinary: Yes: WNL Edema: No Peripheral Pulses WNL: Yes Neurological: Yes: Alert Psychiatric: Yes: Alert Labs: CBC, BMP 03/30/19 06:15 03/30/19 06:15 Assessment/Plan Blood sugar under good control Advance diet,DC IV fluids
[2019-03-31] MEDS: ASPIRIN 81 MG CHEWABLE TABLETS PO SCH (10:48)
[2019-03-31] MEDS: DIVALPROEX SODIUM 250 MG TABLET E.C. PO SCH ×2 (10:48→21:47)
[2019-03-31] MEDS: FAMOTIDINE 20 MG TABLET PO SCH (10:49)
[2019-03-31] MEDS: APIXABAN 5 MG TABLET PO SCH (10:49)
[2019-03-31] MEDS: METOPROLOL TARTRATE 50 MG TABLET (FP) PO SCH ×3 (10:50→21:47)
--- NOTE | 2019-03-31 13:59 | PN ---
Progress Note, Physician History of Present Illness: stable doing well no issues - Current Medication List Current Medications: Active Medications Acetaminophen (Tylenol -) 650 mg PO Q4H PRN PRN Reason: PAIN LEVEL 1 - 7 Last Admin: 03/28/19 22:58 Dose: 650 mg Amiodarone HCl (Cordarone -) 200 mg PO DAILY PENDING [facility] TO [facility] Last Admin: 03/30/19 10:04 Dose: 200 mg Apixaban (Eliquis -) 5 mg PO DAILY [facility] Last Admin: 03/31/19 10:49 Dose: 5 mg Aspirin (Asa -) 81 mg PO DAILY [facility]END[facility] Last Admin: 03/31/19 10:48 Dose: 81 mg Divalproex Sodium (Depakote -) 750 mg PO BID [facility]ENDING [facility] Last Admin: 03/31/19 10:48 Dose: 750 mg Famotidine (Pepcid -) 20 mg PO DAILY [facility] Last Admin: 03/31/19 10:49 Dose: 20 mg Dextrose/Sodium Chloride (D5-1/2ns -) 1,000 mls @ 42 mls/hr IV ASDIR PENDING SALE TO [facility] Last Admin: 03/31/19 06:53 Dose: Not Given Piperacillin Sod/Tazobactam (Sod 3.375 gm/ Dextrose) 50 mls @ 100 mls/hr IVPB Q8H-IV PENDING S[facility] TO [facility]; Protocol Last Admin: 03/31/19 10:49 Dose: 100 mls/hr Insulin Aspart (Novolog Vial Sliding Scale -) 1 vial SQ ACHS PENDING SALE TO [facility]; Protocol Last Admin: 03/31/19 12:24 Dose: Not Given Metformin HCl (Glucophage -) 1,000 mg PO DAILY@0700 PEND[facility] Last Admin: 03/31/19 06:54 Dose: 1,000 mg Metoprolol Tartrate (Lopressor -) 50 mg PO BID [facility] Last Admin: 03/31/19 10:50 Dose: Not Given Sitagliptin Phosphate (Januvia -) 50 mg PO DAILY@0700 PEND[facility] Last Admin: 03/31/19 06:54 Dose: 50 mg - Objective Vital Signs: Vital Signs Temperature 97.3 F L 03/31/19 10:00 Pulse Rate 49 L 03/31/19 10:00 Respiratory Rate 18 03/31/19 10:00 Blood Pressure 148/76 03/31/19 10:00 O2 Sat by Pulse Oximetry (%) 98 03/30/19 21:00 Constitutional: Yes: No Distress, Calm, Obese Cardiovascular: Yes: S1, S2 Respiratory: Yes: Regular, CTA Bilaterally Gastrointestinal: Yes: Normal Bowel Sounds, Soft Musculoskeletal: Yes: WNL Extremities: Yes: WNL Neurological: Yes: Alert, Oriented Psychiatric: Yes: Alert, Oriented Labs: CBC, BMP 03/30/19 06:15 03/30/19 06:15 Assessment/Plan [facility] List - Problems (1) Diabetes mellitus Code(s): E11.9 - TYPE 2 DIABETES MELLITUS WITHOUT COMPLICATIONS Qualifiers: Diabetes mellitus type: type 2 Diabetes mellitus computer terminal operator insulin use: with computer terminal operator use Diabetes mellitus complication status: with unspecified complications (2) HLD (hyperlipidemia) Code(s): E78.5 - HYPERLIPIDEMIA, UNSPECIFIED (3) HTN (hypertension) Code(s): I10 - ESSENTIAL (PRIMARY) HYPERTENSION Qualifiers: Hypertension type: unspecified Qualified Code(s): I10 - Essential (primary ) hypertension (4) T2DM (type 2 diabetes mellitus) Code(s): E11.9 - TYPE 2 DIABETES MELLITUS WITHOUT COMPLICATIONS Assessment/Plan Pt is a 58 y.o. female with PMH of CAD s/p bypass, DM, HTN, HLD, Bipolar d.o. who presented to the ER with severe abdominal pain that began 2 nights ago associated with mucoid/non-bloody diarrhea Acute Sigmoid diverticulitis w/o abscess Leukocytosis DM CAD s/p CABG HTN HLD Bipolar d.o. --ct abx can change to levaquin flagyl combination on discharge for 7 more days
[2019-03-31] MEDS: AMIODARONE HCL 200 MG TABLET (FP) PO SCH (14:09)
[2019-04-01] MEDS ORDERED: DEXTROSE 5%-WATER - 50 ML IVPB ONE ×2 (01:11→09:14)
[2019-04-01] MEDS ORDERED: PIPERACILLIN/TAZOBACTAM 3.375 GM VIAL IVPB ONE ×2 (01:11→09:14)
[2019-04-01] MEDS: PIPERACILLIN/TAZOB 3.375 GM 3.375 GM in DEXTROSE 5%-WATER - 50 ML IVPB SCH ×2 (01:56→09:47)
[2019-04-01] MEDS: metFORMIN HCL 500 MG TABLET (FP) PO SCH (06:07)
[2019-04-01] MEDS: sitaGLIPtin PHOSPHATE 50 MG TABLET PO SCH (06:07)
[2019-04-01] MEDS: DEXTROSE 5%-0.45% SALINE 1,000 ML IV SCH (06:08)
[2019-04-01] MEDS: INSULIN SLIDING SCALE (NOVOLOG) 1 VIAL SQ SCH (06:08)
[2019-04-01] MEDS ORDERED: PT OWN MED DRAWER 7, Y5N ONE (09:14)
[2019-04-01] MEDS: DIVALPROEX SODIUM 250 MG TABLET E.C. PO SCH (09:46)
[2019-04-01] MEDS: AMIODARONE HCL 200 MG TABLET (FP) PO SCH (09:48)
[2019-04-01] MEDS: FAMOTIDINE 20 MG TABLET PO SCH (09:48)
[2019-04-01] MEDS: ASPIRIN 81 MG CHEWABLE TABLETS PO SCH (09:48)
[2019-04-01] MEDS: APIXABAN 5 MG TABLET PO SCH (09:48)
[2019-04-01] MEDS: METOPROLOL TARTRATE 50 MG TABLET (FP) PO SCH (09:49)
[2019-04-01 09:54] VITALS: BP 149/84; PULSE 52; TEMP 97.7
[2019-04-01] MEDS ORDERED: metroNIDAZOLE 250 MG TABLET PO SCH (10:00)
--- NOTE | 2019-04-01 11:29 | PN ---
Progress Note, Physician - Current Medication List Current Medications: Active Medications Acetaminophen (Tylenol -) 650 mg PO Q4H PRN PRN Reason: PAIN LEVEL 1 - 7 Last Admin: 03/28/19 22:58 Dose: 650 mg Amiodarone HCl (Cordarone -) 200 mg PO DAILY [facility] Last Admin: 04/01/19 09:48 Dose: 200 mg Apixaban (Eliquis -) 5 mg PO DAILY [facility] Last Admin: 04/01/19 09:48 Dose: 5 mg Aspirin (Asa -) 81 mg PO DAILY [facility] Last Admin: 04/01/19 09:48 Dose: 81 mg Divalproex Sodium (Depakote -) 750 mg PO BID [facility] Last Admin: 04/01/19 09:46 Dose: 750 mg Famotidine (Pepcid -) 20 mg PO DAILY [facility] Last Admin: 04/01/19 09:48 Dose: 20 mg Dextrose/Sodium Chloride (D5-1/2ns -) 1,000 mls @ 42 mls/hr IV ASDIR [facility] Last Admin: 04/01/19 06:08 Dose: 42 mls/hr Piperacillin Sod/Tazobactam (Sod 3.375 gm/ Dextrose) 50 mls @ 100 mls/hr IVPB Q8H-IV [facility]; Protocol Last Admin: 04/01/19 09:47 Dose: 100 mls/hr Insulin Aspart (Novolog Vial Sliding Scale -) 1 vial SQ ACHS [facility]; Protocol Last Admin: 04/01/19 06:08 Dose: Not Given Metformin HCl (Glucophage -) 1,000 mg PO DAILY@0700 [facility] Last Admin: 04/01/19 06:07 Dose: 1,000 mg Metoprolol Tartrate (Lopressor -) 50 mg PO BID [facility] Last Admin: 04/01/19 09:49 Dose: 50 mg Metronidazole (Flagyl -) 500 mg PO BID [facility] Last Admin: 04/01/19 10:50 Dose: 500 mg Sitagliptin Phosphate (Januvia -) 50 mg PO DAILY@0700 [facility] Last Admin: 04/01/19 06:07 Dose: 50 mg - Objective Vital Signs: Vital Signs Temperature 97.7 F 04/01/19 09:53 Pulse Rate 52 L 04/01/19 09:53 Respiratory Rate 18 04/01/19 09:53 Blood Pressure 149/84 04/01/19 09:53 O2 Sat by Pulse Oximetry (%) 97 04/01/19 09:54 Labs: CBC, BMP 03/30/19 06:15 03/30/19 06:15
== END 2019-04-01 11:40 | disposition home or self-care (01) | DRG 392 ==
LOC: JER 18:35 → JERBED 23:50 → OBSVTOIN 23:50 → J4S 03-28 02:41
PROVIDERS: ADMIT Internal Medicine; ATTEND Internal Medicine
DX: K57.32 Diverticulitis of large intestine without perforation or abscess without bleeding (principal); I25.10 Atherosclerotic heart disease of native coronary artery without angina pectoris; J44.9 Chronic obstructive pulmonary disease, unspecified; E87.5 Hyperkalemia; E11.9 Type 2 diabetes mellitus without complications; E78.5 Hyperlipidemia, unspecified; I10 Essential (primary) hypertension; F31.9 Bipolar disorder, unspecified; D72.829 Elevated white blood cell count, unspecified; Z95.1 Presence of aortocoronary bypass graft
CPT/HCPCS: 36415; 71045-TC-FY; 74177-TC; 80053; 81003; 82272; 82962; 83036; 83690; 84443; 85025; 85027; 87086; 93005; 93010; 99283-25; J0131; J7030

== ENCOUNTER 2019-07-22 13:33 | Emergency (ER) | payer OTHER ==
--- NOTE | 2019-07-22 13:40 | PDOC ---
Rapid Medical Evaluation Time Seen by Provider: 07/22/19 13:36 Medical Evaluation: Allergies Allergy/AdvReac Type Severity Reaction Status Date / Time No Known Allergies Allergy Verified 03/27/19 18:48 07/22/19 13:37 CC: right wrist pain x months; had a seizure in October and struck wrist on metal stove PE: No tenderness to palpation. FAROM present. Orders: nothing Patient will proceed to ED for continued evaluation. 07/22/19 13:40 Discharge Disposition - Diagnosis Wrist pain, right - Referrals - Patient Instructions - Post Discharge Activity
[2019-07-22 13:42] VITALS: BP 135/77; PULSE 69; TEMP 97.8; BMI 38.7
--- NOTE | 2019-07-22 14:09 | PDOC ---
History of Present Illness - General Chief Complaint: Pain Stated Complaint: RT HAND INJURY Time Seen by Provider: 07/22/19 13:36 History Source: Patient - History of Present Illness Initial Comments: 07/22/19 14:51 Chief complaint: Wrist pain Patient 58-year-old female with history of CAD, on Eliquis, diabetes, hypertension and other comorbidities who states she has been having pain to her right wrist on and off. No fever, no injury. She states it mostly bothers her in the morning, sometimes it does and sometimes it does not. Sometimes she has some numbness sometimes she does not. GENERAL/CONSTITUTIONAL: No fever, weakness. dizziness HEAD, EYES, EARS, NOSE AND THROAT: No change in vision. No ear pain or discharge. No sore throat. CARDIOVASCULAR: No chest pain RESPIRATORY: No shortness of breath or cough GASTROINTESTINAL: No pain, nausea, vomiting, diarrhea or constipation GENITOURINARY: No dysuria MUSCULOSKELETAL: + Wrist pain, no neck or back pain SKIN: No rash NEUROLOGIC: No headache, vertigo, loss of consciousness, or loss of sensation. GENERAL: The patient is awake, alert, and fully oriented, in no acute distress. HEAD: Normal with no signs of trauma. EYES: Pupils equal, round and reactive to light, sclera anicteric, conjunctiva clear. ENT: pharynx: no erythema, no exudate, uvula midline NECK: supple CHEST: clear, nontender, rr ABD: soft, nontender BACK: no tenderness or signs of injury EXTREMITIES: Right wrist, no erythema, no restriction of range of motion although there is some discomfort, some tenderness in the middle right finger, a little bit to the pinky, no gross swelling, no signs of tenosynovitis. Otherwise extremities, normal range of motion, no edema. NEUROLOGICAL: Normal speech, normal gait. SKIN: Warm, Dry Past History - Past Medical History Allergies/Adverse Reactions: Allergies Allergy/AdvReac Type Severity Reaction Status Date / Time No Known Allergies Allergy Verified 07/22/19 13:38 Home Medications: Ambulatory Orders Divalproex [Depakote -] 750 mg PO BID 12/02/18 Gabapentin 300 mg PO BID 12/02/18 Amiodarone HCl 200 mg PO DAILY 03/27/19 Apixaban [Eliquis -] 5 mg PO DAILY 03/27/19 Aspirin 81 mg PO DAILY 03/27/19 Famotidine [Pepcid -] 20 mg PO DAILY 03/27/19 Metoprolol Tartrate 1 tab PO BID 03/27/19 Rosuvastatin Calcium [Crestor] 20 mg PO HS 03/27/19 Sitagliptin Phos/Metformin HCl [Janumet 50-1,000 mg Tablet] 1 each PO DAILY Acetaminophen [Tylenol .Regular Strength -] 650 mg PO Q4H PRN tablet 04/01/19 Apixaban [Eliquis -] 5 mg PO DAILY tablet 04/01/19 Ciprofloxacin HCl [Cipro] 500 mg PO BID 7 Days #14 tablet 04/01/19 Insulin Sliding Scale [Novolog Vial Sliding Scale -] 1 vial SQ ACHS units 04/01 Metoprolol Tartrate [Lopressor -] 50 mg PO BID tablet 04/01/19 Sitagliptin Phosphate [Januvia -] 50 mg PO DAILY@0700 tablet 04/01/19 metFORMIN HCL [Glucophage -] 1,000 mg PO DAILY@0700 tablet 04/01/19 metroNIDAZOLE [Flagyl -] 500 mg PO BID tablet 04/01/19 Anemia: No Asthma: Yes Cancer: No Cardiac Disorders: No CVA: No COPD: Yes CHF: No Dementia: No Diabetes: Yes GI Disorders: No Disorders: No HTN: Yes Hypercholesterolemia: Yes Liver Disease: No Psychiatric Problems: Yes (BI-POLAR, depression) Seizures: No Thyroid Disease: No - Surgical History Abdominal Surgery: No Appendectomy: No Cardiac Surgery: Yes ([facility] summer 2018) Cholecystectomy: No Lung Surgery: No Neurologic Surgery: No Orthopedic Surgery: No - Immunization History Immunization Up to Date: Yes - Psycho Social/Smoking Cessation Hx Smoking History: Never smoked Have you smoked in the past 12 months: No Number of Cigarettes Smoked Daily: 0 If you are a former smoker, when did you quit?: 8 years ago Hx Alcohol Use: No Drug/Substance Use Hx: No Substance Use Type: None Hx Substance Use Treatment: No *Physical Exam - Vital Signs Last Vital Signs Temp Pulse Resp BP Pulse Ox 97.8 F 69 18 135/77 97 07/22/19 13:39 07/22/19 13:39 07/22/19 13:39 07/22/19 13:39 07/22/19 13:39 Medical Decision Making - Medical Decision Making 07/22/19 14:53 58-year-old female with multiple medical problems as listed in HPI with on and off wrist pain for the last several weeks. No signs of infection, no signs of tenosynovitis, no injury. No paresthesias today although she does complain of numbness on and off sometimes. Patient did mention she injured her wrist last summer when she had a seizure. But she was in the hospital and rehab and had no issues with it then. Patient offered x-ray. Patient decided that she did not need x-ray she was more concerned whether there was an infection. Discussed at length. Patient cannot take NSAIDs since she is on Eliquis. She states that Tylenol 650 takes care of the pain when she needs it. Also putting it in warm water helps. Patient will continue taking the Tylenol as needed, warm compresses. We will give her a splint, after discussion she agrees that she would like the splint from us and she will follow-up with orthopedic. Discussed issues, findings, results, applicable medications and treatments and follow-up. All these were understood and all questions were answered 07/22/19 15:09 Discharge - Discharge Information Problems reviewed: Yes Clinical Impression/Diagnosis: Wrist pain, right Condition: Stable Disposition: HOME - Admission No - Follow up/Referral Referrals: Arnulfo Gutierrez MD [Staff Physician] - Seven Saldana MD [Staff Physician] - - Patient Discharge Instructions Additional Instructions: You can continue to take Tylenol 650 mg every 4-6 hours as needed for discomfort and apply warm compresses as needed. Wear splint on and off for comfort, especially at night when it is bothering you Follow-up with orthopedist, you can choose 1 of them listed here or anyone on your insurance that will evaluate for a hand issue - Post Discharge Activity
== END 2019-07-22 14:23 | disposition home or self-care (01) ==
LOC: JERFT 13:33
PROC: 2W3CX1Z Immobilization of Right Lower Arm using Splint (ICD-10-PCS; principal; 2019-07-22)
DX: M25.531 Pain in right wrist (principal); I25.10 Atherosclerotic heart disease of native coronary artery without angina pectoris; I10 Essential (primary) hypertension; E11.9 Type 2 diabetes mellitus without complications; Z79.4 Long term (current) use of insulin; E78.00 Pure hypercholesterolemia, unspecified; J45.909 Unspecified asthma, uncomplicated; F31.9 Bipolar disorder, unspecified
CPT/HCPCS: 29126; 99282-25